=== PATIENT | male | born 1950 | race Caucasian/White ===

== ENCOUNTER 2018-12-12 11:14 | Inpatient (IN) ==
[2018-12-12] MEDS ORDERED: RAPID SEQUENCE INDUCTION BAG ONE (11:20)
[2018-12-12] MEDS ORDERED: ALBUT/IPRATROP 3MG/0.5MG NEB 3 ML VIAL ONE (11:21)
[2018-12-12] MEDS ORDERED: ALBUT/IPRATROP 3MG/0.5MG NEB 3 ML VIAL INH STA (11:27)
[2018-12-12] MEDS ORDERED: PIPERACILLIN/TAZOBACTAM 4.5 GM/120 ML BAG IV STA (11:27)
[2018-12-12] MEDS ORDERED: SODIUM CHLORIDE 0.9% 500 ML IV SCH (11:30)
[2018-12-12] MEDS ORDERED: SODIUM CHLORIDE 0.9% 1000ML 1,000 ML IV SCH (11:30)
[2018-12-12] MEDS ORDERED: ALBUT/IPRATROP 3MG/0.5MG NEB 3 ML VIAL NEB ONE (11:37)
[2018-12-12 11:41] LABS: Basophils # (auto) 0.01 K/uL (0-0.2); Basophils % (auto) 0.1 %; Eosinophils # (auto) 0.04 K/uL (0-0.5); Eosinophils % (auto) 0.4 %; Immature Granulocytes # (auto) 0.13 K/uL (0.00-0.02); Immature Granulocytes % (auto) 1.2 %; Lymphocytes # (auto) 0.56 K/uL (1.2-3.4); Lymphocytes % (auto) 5.3 %; Mean Corpuscular Hgb Conc 33.3 g/dL (32-36); Mean Corpuscular Volume 96.2 fL (80-100); Mean Platelet Volume 9.6 fL (7.4-10.4); Monocytes # (auto) 2.24 K/uL (0.11-0.59); Monocytes % (auto) 21.1 %; Neutrophils # (auto) 7.64 K/uL (1.4-6.5); Neutrophils % (auto) 71.9 %; Platelet Count 216 K/uL (130-400); RDW Coefficient of Variation 16.3 % (11.5-14.5); RDW Standard Deviation 57.4 fL (36.4-46.3); Red Blood Count 3.43 M/uL (4.7-6.1); White Blood Count 10.62 K/uL (4.8-10.8)
[2018-12-12 11:50] LABS: INR 1.1 (0.9-1.1); Partial Thromboplastin Ratio 1.1; Partial Thromboplastin Time 30.8 Seconds (21.0-31.0); Prothrombin Time 11.1 Seconds (9.0-12.0)
[2018-12-12 12:03] LABS: Alanine Aminotransferase 36 U/L (12-78); Aspartate Aminotransferase 63 U/L (15-37); BUN Creatinine Ratio 41.5 (10-20); Blood Urea Nitrogen 43 mg/dl (7-18); Calcium 8.3 mg/dl (8.5-10.1); Carbon Dioxide 33 mmol/L (21-32); Chloride 96 mmol/L (98-107); Est GFR (African American) 86.7; Est GFR (Non-African American) 74.8; Glucose 149 mg/dl (70-99); Potassium 4.4 mmol/L (3.5-5.1); Sodium 133 mmol/L (136-145)
[2018-12-12 12:06] LABS: Albumin Globulin Ratio 0.4 (0.9-2); Alkaline Phosphatase 64 U/L (45-117); Bilirubin,Total 0.3 mg/dl (0.2-1); Globulin 5.1 gm/dl (2.5-4.0); Total Protein 7.1 gm/dl (6.4-8.2)
[2018-12-12 12:12] LABS: Magnesium 2.5 mg/dl (1.8-2.4); Troponin I < 0.015 ng/ml (0-0.045)
[2018-12-12 12:35] LABS: Appearance Urine Cloudy (Clear); Bilirubin Urine Negative (Negative); Blood Urine Negative (Negative); Color Urine Dark Yellow; Epithelial Cell Urine Auto >30 /lpf (0-5); Glucose Urine UA Negative (Negative); Ketones Urine Negative (Negative); Leukocyte Esterase Urine 2+ (Negative); Nitrite Urine Negative (Negative); Protein Urine Negative (Negative); RBC Urine Automated 0-4 /hpf (0-4); Specific Gravity Urine 1.024 (1.000-1.030); Urobilinogen Urine Negative (Negative)
[2018-12-12 12:48] LABS: Influenza A virus by PCR Neg for Influ A (Neg); Influenza B virus by PCR Neg for Influ B (Neg)
--- NOTE | 2018-12-12 12:55 | XRay Report ---
SINGLE VIEW CHEST CLINICAL HISTORY: Dyspnea. FINDINGS: An AP, portable, upright chest radiograph is obtained. No prior studies are available for c omparison at the time of dictation. The examination is significantly degraded by portable technique a nd patient rotation. The heart is mildly enlarged. The pulmonary vasculature is noncongested. Patchy airspace consolidation is seen in the left mid to lower lung. No large pleural effusion or pneumotho rax is seen. The skeletal structures are osteopenic. The bony thorax is grossly intact. IMPRESSION: 1. Mild cardiac enlargement without radiographic evidence of congestive failure. 2. Patchy airspace consolidation is seen at the left lung base. Correlate clinically for evidence of pneumonia/aspiration pneumonitis. Radiographic follow-up to resolution is recommended. Electronically signed by: Tk Vidal M.D. 12/12/2018 12:54 PM
[2018-12-12 12:56] LABS: Bacteria Urine Automated 1+ (Negative)
[2018-12-12] MEDS ORDERED: ONDANSETRON INJ 2 MG/ML 2 ML VIAL IV PRN ×2 (13:48→14:06)
[2018-12-12] MEDS ORDERED: ZOLPIDEM TARTRATE 5 MG TAB PO PRN ×2 (13:48→14:06)
[2018-12-12] MEDS ORDERED: MAGNESIUM HYDROXIDE SUSP 30 ML UDC PO PRN ×2 (13:48→14:06)
[2018-12-12] MEDS ORDERED: ENOXAPARIN INJ 40 MG/0.4 ML SYR SQ SCH ×2 (13:48→14:15)
[2018-12-12] MEDS ORDERED: POLYETHYLENE (MIRALAX) 17 GM PACK PO PRN ×2 (13:48→14:06)
[2018-12-12] MEDS ORDERED: ALUMINUM/MAGNESIUM SUSP 30 ML UDC PO PRN ×2 (13:48→14:06)
[2018-12-12] MEDS ORDERED: ACETAMINOPHEN 325 MG TAB PO PRN ×2 (13:48→14:06)
[2018-12-12] MEDS ORDERED: NITROGLYCERIN SL 0.4 MG/TAB TAB SL PRN (14:06)
--- NOTE | 2018-12-12 16:11 | XRay Report ---
SINGLE VIEW CHEST CLINICAL HISTORY: Respiratory distress. FINDINGS: An AP, portable, upright chest radiograph is obtained. Comparison is made to study performe d earlier the same day 12/12/2018. The examination is significantly degraded by portable technique and patient rotation. The heart is mildly enlarged. The pulmonary vasculature is noncongested. Patchy a irspace opacities in both lung bases, left greater than right. This is similar to today's earlier exa mination. No large pleural effusion or pneumothorax is seen. The skeletal structures are osteopenic. The bony thorax is grossly intact. IMPRESSION: 1. Mild cardiac enlargement without radiographic evidence of congestive failure. 2. Patchy airspace opacities at present at both lung bases, left greater than right. This is similar to today's earlier examination. Correlate clinically for evidence of pneumonia/aspiration pneumonitis . Electronically signed by: Tk Vidal M.D. 12/12/2018 4:10 PM
[2018-12-12] MEDS ORDERED: SODIUM CHLORIDE 0.9% 1000ML 1,000 ML IV ONE (16:15)
[2018-12-12] MEDS ORDERED: CONSULT PHARMACY STA (16:26)
[2018-12-12] MEDS ORDERED: PIPERACILL/TAZOBAC CONSULT ACTIVE PRN (16:26)
--- NOTE | 2018-12-12 16:26 | Hospitalist Progress Note ---
Date of Service December 12, 2018 Assessment & Plan (1) Aspiration into airway: (2) Acute respiratory failure: Patient seen and examined, discussed with physician assistant office manager about patient condition and care plan, agree current care plan 68-year-old white male resident from local snf [facility] sent to the hospital for direct admission because of hypoxia , aspiration respiratory failure. Per report patient has past medical history of anxiety, bipolar, BPH, OCD, depression, GERD, "under use of anticoagulation"was sent to [facility] from snf. It was reported the patient was aspiration, was hypoxic, he went through emergency room and then to medicine follow-up, in the emergency room per report he had airway suctioning about 500 ml, after he was arriving to the floor another 200 male suctioningup. He was found hypoxic, pulse ox 88% in 6 L and then 12 L, his oxygen improved to 92% in BiPAP, he was found to confused not able to talk, his hands and feet are cold and mottled, talk has big area of dark and black , , his blood pressure was 86/49, temperature was 37.4 axillary Review of system not able to obtain Current vital signs temperature 37.4 axillary, blood pressure improved systolic at 110, IV fluid bolus 1 L bolus is going, On BiPAP machine, confused close eyes, only open eyes and talk simply when asking what his name, not able to engage in conversation Head was atraumatic, pupils equal round response to the night, ear normal nose normal, neck was supple. On BiPAP machine, bilateral not significant decreased breathing sound Heart regular rhythm S1-S2 Abdomen is soft PEG tube in place Bilateral upper and lower extremity is mild cyanotic and cold and rectal was deferred, Noble in place with deep yellow color Buttock has open dark skin Lab is pending Assessment and plan: Acute respiratory failure likely because of aspiration Possible aspiration pneumonia or pneumonitis Possible sepsis with mental status changes and hypoxic and elevated respiratory rate Possible in early shock with borderline low systolic blood pressure PEG tube feeding for unknown reason history of anxiety, bipolar, BPH, OCD, depression, GERD, Patient is in critical condition I believe patient need to be quick response to move to the ICU I ordered ABG, IV fluid bolus, blood culture, BMP, EKG, cardiac enzyme and troponin, d-dimer, BMP and Basic labs I talked to neonatal doctor Dr. Malik Physical Exam Vital Signs (Past 24 Hours): Last Vital Signs Temp 37.5 C 12/12/18 16:00 Pulse 89 12/12/18 16:00 Resp 26 H 12/12/18 16:00 BP 106/56 L 12/12/18 16:00 Pulse Ox 94 12/12/18 16:00 (1) Aspiration into airway Encounter type: initial encounter Qualified Code(s): T17.908A - Unspecified foreign body in respiratory tract, part unspecified causing other injury, initial encounter (2) Acute respiratory failure Respiratory failure complication: unspecified whether with hypoxia or hypercapnia Qualified Code(s): J96.00 - Acute respiratory failure, unspecified whether with hypoxia or hypercapnia
--- NOTE | 2018-12-12 16:37 | Critical Care Consultation ---
Date of Consultation December 12, 2018 Assessment & Plan (1) Altered mental status, unspecified: Reason Critically Ill: 68-year-old male acute hypoxic respiratory failure PLAN: Neuro: Altered mental status: GCS 11 -Unclear if this is acute or chronic Likely mood disorder -Anxiety, OCD, bipolar listed in hospitalist notes Resp: Acute hypoxic respiratory failure with hypercarbia -Question pneumonia versus mucoid impaction versus aspiration into airway -BiPAP 16/8 60% FiO2 CV: Abnormal EKG: Interventricular conduction delay, nonspecific -Troponins negative x1 Fluids/Renal: Hyponatremia Hypochloremia -Normosol at 80 mL's per hour ID: Possible source of infection: -Pneumonia: Nasotracheal suction sputum obtained -UTI: Micro pending -intra-abdominal: Trend LFTs tomorrow, acute hepatitis panel sent GI/Nutrition: PEG tube present -Unclear etiology, holding additional tube feeds at this time Heme: Anemia -Unclear if this is acute or chronic DVT prophylaxis: Heparin twice daily Elevated d-dimer -penitentiary resident: Unknown level of activity -We will obtain CT chest PE protocol and bilateral Venous duplex lower extremity Endocrine: ICU hyperglycemia protocol Elevated blood sugar Vascular access: Peripheral IVs Code Status: Full code I have personally spent 60 minutes of critical care time in the direct management of this patient. This is a life/limb threatening event. This includes time spent evaluating patient, direct bedside care, chart review, placing orders, interpretation of diagnostic studies, discussion with consultants, patient, and/or family members regarding treatment decisions, as we ll as other required patient management activities. This time is exclusive of all separately billable procedures, and teaching time and separate from and in addition to any other critical care service time. Present on Admission?: Yes (2) Acute hypoxemic respiratory failure: Present on Admission?: Yes (3) Anemia: Present on Admission?: Yes (4) Hyponatremia: Present on Admission?: Yes (5) Hypochloremia: Present on Admission?: Yes (6) Elevated AST (SGOT): Present on Admission?: Yes (7) Elevated BUN: Present on Admission?: Yes (8) Abnormal EKG: Present on Admission?: Yes (9) Intraventricular conduction delay: Present on Admission?: Yes (10) Elevated d-dimer: History of Present Illness Attending Physician: Naldo Manriquez MD, PhD, [facility] History is obtained from the visit notes, patient is unable to participate in history and physical secondary to acute encephalopathy. At the time of this dictation I am unable to access prior records from the [facility] system I have requested records from the [facility] nursing staff reports a single think she was transported with the patient. Reportedly the patient was a direct admit from our side for increased work of breathing possible pneumonia. It appears patient has a prior history of anxiety, OCD, bipolar disease, depression, GERD. He has a PEG tube. Allergies Allergy/AdvReac Type Severity Reaction Status Date / Time haloperidol [From Haldol] Allergy Unknown Unknown Unverified 12/12/18 15:14 methylphenidate Allergy Unknown Unknown Unverified 12/12/18 15:14 Home Medications Home Medications Medication Instructions Recorded Confirmed Type Ppd 0.1 ml SC UD 12/12/18 12/12/18 History acetaminophen 500 mg PO Q6H PRN 12/12/18 12/12/18 History clonazepam 1 mg FEEDING TUBE QAM 12/12/18 12/12/18 History clonazepam 2 mg FEEDING TUBE HS 12/12/18 12/12/18 History famotidine 20 mg FEEDING TUBE TID 12/12/18 12/12/18 History finasteride 5 mg FEEDING TUBE HS 12/12/18 12/12/18 History fluticasone [Flonase Allergy 1 spray INTRANASAL BID 12/12/18 12/12/18 History Relief] guaifenesin 100 mg FEEDING TUBE TID 12/12/18 12/12/18 History heparin (porcine) 5,000 unit SUBCUT Q12H 12/12/18 12/12/18 History ipratropium-albuterol 3 ml INHALATION Q8H 12/12/18 12/12/18 History loratadine 10 mg FEEDING TUBE QAM 12/12/18 12/12/18 History lorazepam 1 mg FEEDING TUBE TID 12/12/18 12/12/18 History metoclopramide HCl [Reglan] 5 mg FEEDING TUBE Q6H 12/12/18 12/12/18 History risperidone 0.5 mg FEEDING TUBE Q6H PRN 12/12/18 12/12/18 History sertraline 100 mg FEEDING TUBE QAM 12/12/18 12/12/18 History tamsulosin 0.8 mg PO HS 12/12/18 12/12/18 History valproic acid (as sodium salt) 750 mg PO BID 12/12/18 12/12/18 History [Depakene] Patient History Medical History Anxiety Bipolar disorder Depressive disorder GERD (gastroesophageal reflux disease) OCD (obsessive compulsive disorder) Family History Other Family history non-contributory Social History Communication Ability: sick Communication Ability Comment: pt has impaired communication due to illness [employer] Att[employer] Required: No Beliefs That Will Affect Care: None marital status: Single Current Living Situation: [facility] current occupational status: retired Feels Safe at Home: Yes Smoking Status: Unknown if ever smoked Review of Systems Unable to obtain secondary to patient's acute encephalopathy versus baseline organic brain disease Physical Exam Vital Signs (Past 24 Hours): Last Vital Signs Temp 37.5 C 12/12/18 16:00 Pulse 89 12/12/18 16:00 Resp 26 H 12/12/18 16:00 BP 106/56 L 12/12/18 16:00 Pulse Ox 94 12/12/18 16:00 General: Elderly male who appears older than his stated age I have reviewed the recorded vital signs Neurological: RASS score: -1, more arousable with deep stimuli, Moves all 4 extremities, Psychological: [place] Coma Scale: Eyes: 3 voice, Verbal 3, Motor 5, Total 11 not Following complex commands Eyes: Pupils are equal, round and reactive to light, anicteric sclera. Symmetrical lids. HENT: Oropharynx is clear mucous membranes are moist. Neck: Supple. Symmetric. trachea midline. No thyromegaly. Cardiovascular: Normal peripheral perfusion. Distal pulses weak and capillary refill delayed. No JVD. Respiratory: Respirations are non-labored, no accessory muscle use. Breath sounds are equal. Gastrointestinal: Soft. Non-distended. Lymphatic: No cervical lymphadenopathy. Musculoskeletal: No deformity. No clubbing nor cyanosis. 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 this wound care setting really more is pale Results & Data Laboratory Results 12/12/18 12/12/18 12/12/18 Range/Units 16:39 16:39 16:39 WBC (4.8-10.8) K/uL RBC (4.7-6.1) M/uL Hgb (14.0-18.0) g/dL Hct (42-52) % MCV (80-100) fL MCH (25-34) pg MCHC (32-36) g/dL RDW Std Deviation (36.4-46.3) fL RDW Coeff of Tyson (11.5-14.5) % Plt Count (130-400) K/uL MPV (7.4-10.4) fL Immature Gran % (Auto) % Neut % (Auto) % Lymph % (Auto) % [place] % (Auto) % Eos % (Auto) % Baso % (Auto) % Immature Gran # (Auto) (0.00-0.02) K/uL Neut # (Auto) (1.4-6.5) K/uL Lymph # (Auto) (1.2-3.4) K/uL [place] # (Auto) (0.11-0.59) K/uL Eos # (Auto) (0-0.5) K/uL Baso # (Auto) (0-0.2) K/uL ESR PT (9.0-12.0) Seconds INR (0.9-1.1) APTT (21.0-31.0) Seconds PTT Ratio D-Dimer Sodium (136-145) mmol/L Potassium (3.5-5.1) mmol/L Chloride (98-107) mmol/L Carbon Dioxide (21-32) mmol/L Anion Gap (3-11) BUN (7-18) mg/dl Creatinine (0.6-1.4) mg/dl Est Cr Clr Drug Dosing Est GFR ( Amer) Est GFR (Non-Af Amer) BUN/Creatinine Ratio (10-20) Glucose (70-99) mg/dl POC Glucose (70-99) POC Lactic Acid Ivan (0.90-1.70) mmol/L Lactate Calcium (8.5-10.1) mg/dl Ionized Calcium Pending Phosphorus Magnesium (1.8-2.4) mg/dl Total Bilirubin (0.2-1) mg/dl AST (15-37) U/L ALT (12-78) U/L Alkaline Phosphatase (45-117) U/L Troponin I (0-0.045) ng/ml C-Reactive Protein NT-Pro-B Natriuret Pep Total Protein (6.4-8.2) gm/dl Albumin (3.4-5.0) gm/dl Globulin (2.5-4.0) gm/dl Albumin/Globulin Ratio (0.9-2) Procalcitonin Pending Random Cortisol Urine Color Urine Appearance (Clear) Urine pH (4.5-7.5) Ur Specific [place] (1.000-1.030) Urine Protein (Negative) Urine Glucose (UA) (Negative) Urine Ketones (Negative) Urine Blood (Negative) Urine Nitrite (Negative) Urine Bilirubin (Negative) Urine Urobilinogen (Negative) Ur Leukocyte Esterase (Negative) Urine WBC (Auto) (0-5) /hpf Urine RBC (Auto) (0-4) /hpf U Hyaline Cast (Auto) (0-5) /lpf U Epithel Cells (Auto) (0-5) /lpf Urine Bacteria (Auto) (Negative) Ur Renal Epithelial Cell Granular Casts (0) /lpf Urine Yeast Valproic Acid Pending Hepatitis A IgM Ab Hep Bs Antigen Hep B Core IgM Ab Hepatitis C Antibody Influenza Type A (PCR) (Neg) Influenza Type B (PCR) (Neg) 12/12/18 12/12/18 12/12/18 Range/Units 16:39 16:39 16:39 WBC (4.8-10.8) K/uL RBC (4.7-6.1) M/uL Hgb (14.0-18.0) g/dL Hct (42-52) % MCV (80-100) fL MCH (25-34) pg MCHC (32-36) g/dL RDW Std Deviation (36.4-46.3) fL RDW Coeff of Tyson (11.5-14.5) % Plt Count (130-400) K/uL MPV (7.4-10.4) fL Immature Gran % (Auto) % Neut % (Auto) % Lymph % (Auto) % [place] % (Auto) % Eos % (Auto) % Baso % (Auto) % Immature Gran # (Auto) (0.00-0.02) K/uL Neut # (Auto) (1.4-6.5) K/uL Lymph # (Auto) (1.2-3.4) K/uL Ponce # (Auto) (0.11-0.59) K/uL Eos # (Auto) (0-0.5) K/uL Baso # (Auto) (0-0.2) K/uL ESR Pending PT (9.0-12.0) Seconds INR (0.9-1.1) APTT (21.0-31.0) Seconds PTT Ratio D-Dimer Sodium Pending (136-145) mmol/L Potassium Pending (3.5-5.1) mmol/L Chloride Pending (98-107) mmol/L Carbon Dioxide Pending (21-32) mmol/L Anion Gap Pending (3-11) BUN Pending (7-18) mg/dl Creatinine Pending (0.6-1.4) mg/dl Est Cr Clr Drug Dosing Pending Est GFR ( Amer) Pending Est GFR (Non-Af Amer) Pending BUN/Creatinine Ratio Pending (10-20) Glucose Pending (70-99) mg/dl POC Glucose (70-99) POC Lactic Acid Ivan (0.90-1.70) mmol/L Lactate Pending Calcium Pending (8.5-10.1) mg/dl Ionized Calcium Phosphorus Pending Magnesium Pending (1.8-2.4) mg/dl Total Bilirubin Pending (0.2-1) mg/dl AST Pending (15-37) U/L ALT Pending (12-78) U/L Alkaline Phosphatase Pending (45-117) U/L Troponin I Pending (0-0.045) ng/ml C-Reactive Protein Pending NT-Pro-B Natriuret Pep Pending Total Protein Pending (6.4-8.2) gm/dl Albumin Pending (3.4-5.0) gm/dl Globulin Pending (2.5-4.0) gm/dl Albumin/Globulin Ratio Pending (0.9-2) Procalcitonin Random Cortisol Urine Color Urine Appearance (Clear) Urine pH (4.5-7.5) Ur Specific [place] (1.000-1.030) Urine Protein (Negative) Urine Glucose (UA) (Negative) Urine Ketones (Negative) Urine Blood (Negative) Urine Nitrite (Negative) Urine Bilirubin (Negative) Urine Urobilinogen (Negative) Ur Leukocyte Esterase (Negative) Urine WBC (Auto) (0-5) /hpf Urine RBC (Auto) (0-4) /hpf U Hyaline Cast (Auto) (0-5) /lpf U Epithel Cells (Auto) (0-5) /lpf Urine Bacteria (Auto) (Negative) Ur Renal Epithelial Cell Granular Casts (0) /lpf Urine Yeast Valproic Acid Hepatitis A IgM Ab Hep Bs Antigen Hep B Core IgM Ab Hepatitis C Antibody Influenza Type A (PCR) (Neg) Influenza Type B (PCR) (Neg) 12/12/18 12/12/18 12/12/18 Range/Units 16:39 16:05 12:05 WBC (4.8-10.8) K/uL RBC (4.7-6.1) M/uL Hgb (14.0-18.0) g/dL Hct (42-52) % MCV (80-100) fL MCH (25-34) pg MCHC (32-36) g/dL RDW Std Deviation (36.4-46.3) fL RDW Coeff of Tyson (11.5-14.5) % Plt Count (130-400) K/uL MPV (7.4-10.4) fL Immature Gran % (Auto) % Neut % (Auto) % Lymph % (Auto) % [place] % (Auto) % Eos % (Auto) % Baso % (Auto) % Immature Gran # (Auto) (0.00-0.02) K/uL Neut # (Auto) (1.4-6.5) K/uL Lymph # (Auto) (1.2-3.4) K/uL Ponce # (Auto) (0.11-0.59) K/uL Eos # (Auto) (0-0.5) K/uL Baso # (Auto) (0-0.2) K/uL ESR PT (9.0-12.0) Seconds INR (0.9-1.1) APTT (21.0-31.0) Seconds PTT Ratio D-Dimer Pending Sodium (136-145) mmol/L Potassium (3.5-5.1) mmol/L Chloride (98-107) mmol/L Carbon Dioxide (21-32) mmol/L Anion Gap (3-11) BUN (7-18) mg/dl Creatinine (0.6-1.4) mg/dl Est Cr Clr Drug Dosing Est GFR ( Amer) Est GFR (Non-Af Amer) BUN/Creatinine Ratio (10-20) Glucose (70-99) mg/dl POC Glucose 156 H (70-99) POC Lactic Acid Ivan (0.90-1.70) mmol/L Lactate Calcium (8.5-10.1) mg/dl Ionized Calcium Phosphorus Magnesium (1.8-2.4) mg/dl Total Bilirubin (0.2-1) mg/dl AST (15-37) U/L ALT (12-78) U/L Alkaline Phosphatase (45-117) U/L Troponin I (0-0.045) ng/ml C-Reactive Protein NT-Pro-B Natriuret Pep Total Protein (6.4-8.2) gm/dl Albumin (3.4-5.0) gm/dl Globulin (2.5-4.0) gm/dl Albumin/Globulin Ratio (0.9-2) Procalcitonin Random Cortisol Urine Color Dark Yellow Urine Appearance Cloudy H (Clear) Urine pH 5.0 (4.5-7.5) Ur Specific [place] 1.024 (1.000-1.030) Urine Protein Negative (Negative) Urine Glucose (UA) Negative (Negative) Urine Ketones Negative (Negative) Urine Blood Negative (Negative) Urine Nitrite Negative (Negative) Urine Bilirubin Negative (Negative) Urine Urobilinogen Negative (Negative) Ur Leukocyte Esterase 2+ H (Negative) Urine WBC (Auto) 10-30 H (0-5) /hpf Urine RBC (Auto) 0-4 (0-4) /hpf U Hyaline Cast (Auto) 10-30 H (0-5) /lpf U Epithel Cells (Auto) >30 H (0-5) /lpf Urine Bacteria (Auto) 1+ H (Negative) Ur Renal Epithelial Cell Not Reportable Granular Casts 5-10 H (0) /lpf Urine Yeast Not Reportable Valproic Acid Hepatitis A IgM Ab Hep Bs Antigen Hep B Core IgM Ab Hepatitis C Antibody Influenza Type A (PCR) (Neg) Influenza Type B (PCR) (Neg) 12/12/18 12/12/18 12/12/18 Range/Units 12:04 11:30 11:24 WBC (4.8-10.8) K/uL RBC (4.7-6.1) M/uL Hgb (14.0-18.0) g/dL Hct (42-52) % MCV (80-100) fL MCH (25-34) pg MCHC (32-36) g/dL RDW Std Deviation (36.4-46.3) fL RDW Coeff of Tyson (11.5-14.5) % Plt Count (130-400) K/uL MPV (7.4-10.4) fL Immature Gran % (Auto) % Neut % (Auto) % Lymph % (Auto) % [place] % (Auto) % Eos % (Auto) % Baso % (Auto) % Immature Gran # (Auto) (0.00-0.02) K/uL Neut # (Auto) (1.4-6.5) K/uL Lymph # (Auto) (1.2-3.4) K/uL Ponce # (Auto) (0.11-0.59) K/uL Eos # (Auto) (0-0.5) K/uL Baso # (Auto) (0-0.2) K/uL ESR PT (9.0-12.0) Seconds INR (0.9-1.1) APTT (21.0-31.0) Seconds PTT Ratio D-Dimer Sodium (136-145) mmol/L Potassium (3.5-5.1) mmol/L Chloride (98-107) mmol/L Carbon Dioxide (21-32) mmol/L Anion Gap (3-11) BUN (7-18) mg/dl Creatinine (0.6-1.4) mg/dl Est Cr Clr Drug Dosing Est GFR ( Amer) Est GFR (Non-Af Amer) BUN/Creatinine Ratio (10-20) Glucose (70-99) mg/dl POC Glucose (70-99) POC Lactic Acid Ivan 1.48 (0.90-1.70) mmol/L Lactate Calcium (8.5-10.1) mg/dl Ionized Calcium Phosphorus Magnesium (1.8-2.4) mg/dl Total Bilirubin (0.2-1) mg/dl AST (15-37) U/L ALT (12-78) U/L Alkaline Phosphatase (45-117) U/L Troponin I (0-0.045) ng/ml C-Reactive Protein NT-Pro-B Natriuret Pep Total Protein (6.4-8.2) gm/dl Albumin (3.4-5.0) gm/dl Globulin (2.5-4.0) gm/dl Albumin/Globulin Ratio (0.9-2) Procalcitonin Random Cortisol Urine Color Urine Appearance (Clear) Urine pH (4.5-7.5) Ur Specific [place] (1.000-1.030) Urine Protein (Negative) Urine Glucose (UA) (Negative) Urine Ketones (Negative) Urine Blood (Negative) Urine Nitrite (Negative) Urine Bilirubin (Negative) Urine Urobilinogen (Negative) Ur Leukocyte Esterase (Negative) Urine WBC (Auto) (0-5) /hpf Urine RBC (Auto) (0-4) /hpf U Hyaline Cast (Auto) (0-5) /lpf U Epithel Cells (Auto) (0-5) /lpf Urine Bacteria (Auto) (Negative) Ur Renal Epithelial Cell Granular Casts (0) /lpf Urine Yeast Valproic Acid Hepatitis A IgM Ab Pending Hep Bs Antigen Hep B Core IgM Ab Pending Hepatitis C Antibody Influenza Type A (PCR) Neg for Influ A (Neg) Influenza Type B (PCR) Neg for Influ B (Neg) 12/12/18 12/12/18 12/12/18 Range/Units 11:24 11:24 11:24 WBC (4.8-10.8) K/uL RBC (4.7-6.1) M/uL Hgb (14.0-18.0) g/dL Hct (42-52) % MCV (80-100) fL MCH (25-34) pg MCHC (32-36) g/dL RDW Std Deviation (36.4-46.3) fL RDW Coeff of Tyson (11.5-14.5) % Plt Count (130-400) K/uL MPV (7.4-10.4) fL Immature Gran % (Auto) % Neut % (Auto) % Lymph % (Auto) % [place] % (Auto) % Eos % (Auto) % Baso % (Auto) % Immature Gran # (Auto) (0.00-0.02) K/uL Neut # (Auto) (1.4-6.5) K/uL Lymph # (Auto) (1.2-3.4) K/uL Ponce # (Auto) (0.11-0.59) K/uL Eos # (Auto) (0-0.5) K/uL Baso # (Auto) (0-0.2) K/uL ESR PT (9.0-12.0) Seconds INR (0.9-1.1) APTT (21.0-31.0) Seconds PTT Ratio D-Dimer Sodium 133 L (136-145) mmol/L Potassium 4.4 (3.5-5.1) mmol/L Chloride 96 L (98-107) mmol/L Carbon Dioxide 33 H (21-32) mmol/L Anion Gap 4.0 (3-11) BUN 43 H (7-18) mg/dl Creatinine 1.03 (0.6-1.4) mg/dl Est Cr Clr Drug Dosing Not Reportable Est GFR ( Amer) 86.7 Est GFR (Non-Af Amer) 74.8 BUN/Creatinine Ratio 41.5 H (10-20) Glucose 149 H (70-99) mg/dl POC Glucose (70-99) POC Lactic Acid Ivan (0.90-1.70) mmol/L Lactate Calcium 8.3 L (8.5-10.1) mg/dl Ionized Calcium Phosphorus Magnesium (1.8-2.4) mg/dl Total Bilirubin 0.3 (0.2-1) mg/dl AST 63 H (15-37) U/L ALT 36 (12-78) U/L Alkaline Phosphatase 64 (45-117) U/L Troponin I (0-0.045) ng/ml C-Reactive Protein NT-Pro-B Natriuret Pep Total Protein 7.1 (6.4-8.2) gm/dl Albumin 2.0 L (3.4-5.0) gm/dl Globulin 5.1 H (2.5-4.0) gm/dl Albumin/Globulin Ratio 0.4 L (0.9-2) Procalcitonin Random Cortisol Pending Urine Color Urine Appearance (Clear) Urine pH (4.5-7.5) Ur Specific [place] (1.000-1.030) Urine Protein (Negative) Urine Glucose (UA) (Negative) Urine Ketones (Negative) Urine Blood (Negative) Urine Nitrite (Negative) Urine Bilirubin (Negative) Urine Urobilinogen (Negative) Ur Leukocyte Esterase (Negative) Urine WBC (Auto) (0-5) /hpf Urine RBC (Auto) (0-4) /hpf U Hyaline Cast (Auto) (0-5) /lpf U Epithel Cells (Auto) (0-5) /lpf Urine Bacteria (Auto) (Negative) Ur Renal Epithelial Cell Granular Casts (0) /lpf Urine Yeast Valproic Acid Hepatitis A IgM Ab Hep Bs Antigen Pending Hep B Core IgM Ab Hepatitis C Antibody Pending Influenza Type A (PCR) (Neg) Influenza Type B (PCR) (Neg) 12/12/18 12/12/18 12/12/18 Range/Units 11:24 11:24 11:24 WBC 10.62 (4.8-10.8) K/uL RBC 3.43 L (4.7-6.1) M/uL Hgb 11.0 L (14.0-18.0) g/dL Hct 33.0 L (42-52) % MCV 96.2 (80-100) fL MCH 32.1 (25-34) pg MCHC 33.3 (32-36) g/dL RDW Std Deviation 57.4 H (36.4-46.3) fL RDW Coeff of Tyson 16.3 H (11.5-14.5) % Plt Count 216 (130-400) K/uL MPV 9.6 (7.4-10.4) fL Immature Gran % (Auto) 1.2 % Neut % (Auto) 71.9 % Lymph % (Auto) 5.3 % [place] % (Auto) 21.1 % Eos % (Auto) 0.4 % Baso % (Auto) 0.1 % Immature Gran # (Auto) 0.13 H (0.00-0.02) K/uL Neut # (Auto) 7.64 H (1.4-6.5) K/uL Lymph # (Auto) 0.56 L (1.2-3.4) K/uL [place]once # (Auto) 2.24 H (0.11-0.59) K/uL Eos # (Auto) 0.04 (0-0.5) K/uL Baso # (Auto) 0.01 (0-0.2) K/uL ESR PT 11.1 (9.0-12.0) Seconds INR 1.1 (0.9-1.1) APTT 30.8 (21.0-31.0) Seconds PTT Ratio 1.1 D-Dimer Sodium (136-145) mmol/L Potassium (3.5-5.1) mmol/L Chloride (98-107) mmol/L Carbon Dioxide (21-32) mmol/L Anion Gap (3-11) BUN (7-18) mg/dl Creatinine (0.6-1.4) mg/dl Est Cr Clr Drug Dosing Est GFR ( Amer) Est GFR (Non-Af Amer) BUN/Creatinine Ratio (10-20) Glucose (70-99) mg/dl POC Glucose (70-99) POC Lactic Acid Ivan (0.90-1.70) mmol/L Lactate Calcium (8.5-10.1) mg/dl Ionized Calcium Phosphorus Magnesium 2.5 H (1.8-2.4) mg/dl Total Bilirubin (0.2-1) mg/dl AST (15-37) U/L ALT (12-78) U/L Alkaline Phosphatase (45-117) U/L Troponin I < 0.015 (0-0.045) ng/ml C-Reactive Protein NT-Pro-B Natriuret Pep Total Protein (6.4-8.2) gm/dl Albumin (3.4-5.0) gm/dl Globulin (2.5-4.0) gm/dl Albumin/Globulin Ratio (0.9-2) Procalcitonin Random Cortisol Urine Color Urine Appearance (Clear) Urine pH (4.5-7.5) Ur Specific [place] (1.000-1.030) Urine Protein (Negative) Urine Glucose (UA) (Negative) Urine Ketones (Negative) Urine Blood (Negative) Urine Nitrite (Negative) Urine Bilirubin (Negative) Urine Urobilinogen (Negative) Ur Leukocyte Esterase (Negative) Urine WBC (Auto) (0-5) /hpf Urine RBC (Auto) (0-4) /hpf U Hyaline Cast (Auto) (0-5) /lpf U Epithel Cells (Auto) (0-5) /lpf Urine Bacteria (Auto) (Negative) Ur Renal Epithelial Cell Granular Casts (0) /lpf Urine Yeast Valproic Acid Hepatitis A IgM Ab Hep Bs Antigen Hep B Core IgM Ab Hepatitis C Antibody Influenza Type A (PCR) (Neg) Influenza Type B (PCR) (Neg) Diagnostic Findings I have reviewed both chest x-rays obtained today as well as the radiology report he does have patchy infiltrates in the left lung field concerning for possible pneumonia versus aspiration versus mucoid impaction ECG Additional Comments: Reviewed EKG since seen in November 2018 normal sinus rhythm with ventricular rate of 88 nonspecific intraventricular conduction delay QTC is 469 no prior for comparison. (1) Altered mental status, unspecified Altered mental status type: coma Coma depth: [place] coma 9-12 Coma timing: unspecified coma timing Qualified Code(s): R40.2420 - [place] coma scale score 9-12, unspecified time
[2018-12-12] MEDS ORDERED: VANCOMYCIN CONSULT ACTIVE PRN (16:42)
[2018-12-12] MEDS ORDERED: PATIENT'S HEIGHT AND/OR WEIGHT NEEDED SCH (16:45)
[2018-12-12 17:10] LABS: iSTAT Allen Test Pass; iSTAT Arterial Blood Gas HCO3 29 meg/L (19-24); iSTAT Arterial Blood Gas pCO2 48 mmHg (35-46); iSTAT Arterial Blood Gas pH 7.39 (7.35-7.45); iSTAT Carbon Dioxide 31 mEq/l (24-31); iSTAT FiO2 60 %; iSTAT Site R Radial
[2018-12-12 17:15] LABS: D Dimer 4400 ug/L FEU (0-500)
[2018-12-12 17:16] LABS: Alanine Aminotransferase 36 U/L (12-78); Albumin Level 1.9 gm/dl (3.4-5.0); Aspartate Aminotransferase 56 U/L (15-37); BUN Creatinine Ratio 39.2 (10-20); Blood Urea Nitrogen 40 mg/dl (7-18); Calcium 8.5 mg/dl (8.5-10.1); Carbon Dioxide 33 mmol/L (21-32); Chloride 100 mmol/L (98-107); Creatinine Clr Calc Pharmacy 68.7 ml/min; Est GFR (African American) 88.8; Est GFR (Non-African American) 76.6; Glucose 129 mg/dl (70-99); Magnesium 2.3 mg/dl (1.8-2.4); Potassium 4.4 mmol/L (3.5-5.1); Sodium 138 mmol/L (136-145)
[2018-12-12 17:24] LABS: Albumin Globulin Ratio 0.4 (0.9-2); Alkaline Phosphatase 60 U/L (45-117); Bilirubin,Total 0.3 mg/dl (0.2-1); Globulin 4.7 gm/dl (2.5-4.0); NT Pro B Type Natriuretic Pept 852 pg/ml (0-900); Phosphorus 5.5 mg/dl (2.5-4.9); Total Protein 6.6 gm/dl (6.4-8.2); Troponin I < 0.015 ng/ml (0-0.045)
--- NOTE | 2018-12-12 17:25 | Emergency Department Note ---
Entered by Ashley De acting as a scribe for History of Present Illness General Chief complaint: Respiratory Distress Stated complaint: respiratory distress/ams Time Seen by Provider: 12/12/18 11:16 Source: other (nursing staff) Limitations: other (respiratory distress) History of Present Illness Onset (ago): minute(s) ([employer]) Location: chest Pain Consistency: + other (episode) Quality: + other (respiratory distress) Associated symptoms: + other (difficulty getting him to respond) The patient is a 68 year old male who presents to the Emergency Room with complaints of an episode of respiratory distress starting prior to arrival. Per the nursing staff, the patient is coming from [facility] with difficulty breathing and difficulty getting him to respond. They note that the patient is a full code. The HPI and ROS are limited secondary to AMS & respiratory distress. Home Medications Home Medications Medication Instructions Recorded Confirmed Type Ppd 0.1 ml SC UD 12/12/18 12/12/18 History acetaminophen 500 mg PO Q6H PRN 12/12/18 12/12/18 History clonazepam 1 mg FEEDING TUBE QAM 12/12/18 12/12/18 History clonazepam 2 mg FEEDING TUBE HS 12/12/18 12/12/18 History famotidine 20 mg FEEDING TUBE TID 12/12/18 12/12/18 History finasteride 5 mg FEEDING TUBE HS 12/12/18 12/12/18 History fluticasone propionate [Flonase 1 spray INTRANASAL BID 12/12/18 12/12/18 History Allergy Relief] guaifenesin 100 mg FEEDING TUBE TID 12/12/18 12/12/18 History heparin (porcine) 5,000 unit SUBCUT Q12H 12/12/18 12/12/18 History ipratropium-albuterol 3 ml INHALATION Q8H 12/12/18 12/12/18 History loratadine 10 mg FEEDING TUBE QAM 12/12/18 12/12/18 History lorazepam 1 mg FEEDING TUBE TID 12/12/18 12/12/18 History metoclopramide HCl [Reglan] 5 mg FEEDING TUBE Q6H 12/12/18 12/12/18 History risperidone 0.5 mg FEEDING TUBE Q6H PRN 12/12/18 12/12/18 History sertraline 100 mg FEEDING TUBE QAM 12/12/18 12/12/18 History tamsulosin 0.8 mg PO HS 12/12/18 12/12/18 History valproic acid (as sodium salt) 750 mg PO BID 12/12/18 12/12/18 History [Depakene] Allergies Allergy/AdvReac Type Severity Reaction Status Date / Time haloperidol [From Haldol] Allergy Unknown Unknown Unverified 12/12/18 15:14 methylphenidate Allergy Unknown Unknown Unverified 12/12/18 15:14 Past Med/Surg History Medical History Anxiety Bipolar disorder Depressive disorder GERD (gastroesophageal reflux disease) OCD (obsessive compulsive disorder) Family History Other Family history non-contributory Social History Communication Ability: Impaired Beliefs That Will Affect Care: None marital status: Single Current Living Situation: Assisted current occupational status: retired Feels Safe at Home: Yes Smoking Status: Unknown if ever smoked Review of Systems The HPI and ROS are limited secondary to respiratory distress. Physical Exam Vital Signs Vital Signs - 24 hr 12/14/18 10:00 12/14/18 10:30 12/14/18 11:00 Temperature Temperature Source Pulse Rate 71 82 76 Pulse Rate [Apical] Pulse Rate [Right Finger] Pulse Rate from SpO2 Sensor 72 82 76 Respiratory Rate 21 24 19 Respiratory Effort / Characteristics Respiratory Depth Respiratory Pattern Blood Pressure 133/70 Blood Pressure [Left Arm] Blood Pressure Mean 91 Blood Pressure Mean [Left Arm] Blood Pressure Position [Left Arm] Pulse Oximetry 96 96 99 Oxygen Delivery Method Oxygen Flow Rate 12/14/18 11:01 12/14/18 11:30 12/14/18 12:00 Temperature 36.8 C Temperature Source Pulse Rate 76 70 69 Pulse Rate [Apical] Pulse Rate [Right Finger] Pulse Rate from SpO2 Sensor 77 70 70 Respiratory Rate 18 21 24 Respiratory Effort / Characteristics Respiratory Depth Respiratory Pattern Blood Pressure 120/67 119/64 Blood Pressure [Left Arm] Blood Pressure Mean 84 82 Blood Pressure Mean [Left Arm] Blood Pressure Position [Left Arm] Pulse Oximetry 99 98 99 Oxygen Delivery Method Oxygen Flow Rate 12/14/18 12:01 12/14/18 12:30 12/14/18 13:00 Temperature Temperature Source Pulse Rate 70 76 83 Pulse Rate [Apical] Pulse Rate [Right Finger] Pulse Rate from SpO2 Sensor 71 76 Respiratory Rate 17 24 22 Respiratory Effort / Characteristics Respiratory Depth Respiratory Pattern Blood Pressure Blood Pressure [Left Arm] Blood Pressure Mean Blood Pressure Mean [Left Arm] Blood Pressure Position [Left Arm] Pulse Oximetry 100 99 Oxygen Delivery Method Oxygen Flow Rate 12/14/18 13:01 12/14/18 13:30 12/14/18 14:00 Temperature Temperature Source Pulse Rate 84 84 84 Pulse Rate [Apical] Pulse Rate [Right Finger] Pulse Rate from SpO2 Sensor 84 Respiratory Rate 36 H 28 H 26 H Respiratory Effort / Characteristics Respiratory Depth Respiratory Pattern Blood Pressure 123/72 125/73 Blood Pressure [Left Arm] Blood Pressure Mean 89 90 Blood Pressure Mean [Left Arm] Blood Pressure Position [Left Arm] Pulse Oximetry 91 Oxygen Delivery Method Oxygen Flow Rate 12/14/18 14:01 12/14/18 16:00 12/14/18 19:36 Temperature 36.5 C Temperature Source Oral Pulse Rate 80 74 Pulse Rate [Apical] 62 Pulse Rate [Right Finger] Pulse Rate from SpO2 Sensor 81 Respiratory Rate 30 H 22 Respiratory Effort / Characteristics Non-Labored Spontaneous Non-Labored Respiratory Depth Normal Normal Respiratory Pattern Regular Regular Blood Pressure Blood Pressure [Left Arm] 158/90 H Blood Pressure Mean Blood Pressure Mean [Left Arm] 112 Blood Pressure Position [Left Arm] Lying Pulse Oximetry 91 99 Oxygen Delivery Method Nasal Cannula Nasal Cannula Oxygen Flow Rate 3 2 12/15/18 00:35 12/15/18 00:38 12/15/18 08:00 Temperature 36.9 C 36.4 C L Temperature Source Oral Oral Pulse Rate Pulse Rate [Apical] 79 Pulse Rate [Right Finger] 77 Pulse Rate from SpO2 Sensor Respiratory Rate 17 18 Respiratory Effort / Characteristics Non-Labored Spontaneous Respiratory Depth Normal Respiratory Pattern Regular Blood Pressure Blood Pressure [Left Arm] 165/84 H 145/77 H Blood Pressure Mean Blood Pressure Mean [Left Arm] 111 99 Blood Pressure Position [Left Arm] Lying Pulse Oximetry 92 93 Oxygen Delivery Method Nasal Cannula Room Air Oxygen Flow Rate 2 2 Vital signs reviewed. Noted to be severely hypoxic. General: Chronically ill-appearing, cachectic, in no significant distress. HEENT: No scleral icterus, PERRLA, neck supple. Atraumatic. Copious amounts of oral secretions. Cardiovascular: Regular rate and rhythm, no extra sounds. Pulmonary: Rhonchi bilaterally. Moist cough. Agonal breathing. Abdomen: Soft, nontender, nondistended, positive bowel sounds. Musculoskeletal: Atraumatic, no peripheral edema. Bilateral lower extremity contractures. Neurologic: Moans and responds to verbal stimuli and suction. Skin: Warm, dry, no rash Course 1117: Past medical records reviewed. The patient was evaluated in room C1B, and a complete history and physical examination were performed. 1317: I reevaluated the patient and he is on Bi-PAP. 1330: I reviewed the patient's case with KATIE Reynoso Hospitalist. He will evaluate the patient for further management. Consultations Consultation #1: I reviewed the patient's case with KATIE Reynoso Hospitalist. He will evaluate the patient for further management. Time: 13:30 Administered Medications Acetylcysteine (Mucomyst 10%) 5 ml INH TIDR LAUREANO Stop: 01/13/19 08:59 Last Admin: 12/15/18 07:35 Dose: Not Given Documented by: [id number] Admin: 12/14/18 23:02 Dose: Not Given Documented by: [id number] Admin: 12/14/18 15:09 Dose: Not Given Documented by: [id number] Admin: 12/14/18 07:26 Dose: 5 ml Documented by: [id number] Albuterol (Duoneb) 3 ml NEB Q8R LAUREANO Stop: 01/11/19 19:05 Last Admin: 12/15/18 07:34 Dose: Not Given Documented by: [id number] Admin: 12/14/18 23:02 Dose: Not Given Documented by: [id number] Admin: 12/14/18 15:09 Dose: Not Given Documented by: [id number] Admin: 12/14/18 07:27 Dose: 3 ml Documented by: [id number] Admin: 12/13/18 23:10 Dose: 3 ml Documented by: [id number] Admin: 12/13/18 15:25 Dose: 3 ml Documented by: [id number] Admin: 12/13/18 07:12 Dose: 3 ml Documented by: [id number] Admin: 12/12/18 23:02 Dose: 3 ml Documented by: [id number] Admin: 12/12/18 19:41 Dose: 3 ml Documented by: [id number] Clonazepam (Klonopin) 1 mg PO Q12 LAUREANO Stop: 01/13/19 09:14 Last Admin: 12/15/18 07:53 Dose: 1 mg Documented by: [id number] Admin: 12/14/18 21:13 Dose: 1 mg Documented by: [id number] Admin: 12/14/18 10:32 Dose: 1 mg Documented by: [id number] Divalproex Sodium (Depakote Sprinkle) 750 mg PO BID LAUREANO Stop: 01/11/19 20:59 Last Admin: 12/15/18 07:43 Dose: 750 mg Documented by: [id number] Admin: 12/14/18 20:52 Dose: 750 mg Documented by: [id number] Admin: 12/14/18 07:43 Dose: 750 mg Documented by: [id number] Admin: 12/13/18 20:34 Dose: 750 mg Documented by: [id number] Admin: 12/13/18 08:07 Dose: 750 mg Documented by: [id number] Admin: 12/12/18 20:41 Dose: 750 mg Documented by: [id number] Enoxaparin Sodium (Lovenox) 40 mg SQ Q24H LAUREANO Stop: 01/11/19 16:59 Last Admin: 12/14/18 17:03 Dose: 40 mg Documented by: [id number] Admin: 12/13/18 17:07 Dose: 40 mg Documented by: [id number] Admin: 12/12/18 18:02 Dose: 40 mg Documented by: [id number] Finasteride (Proscar) 5 mg PO QAM LAUREANO Stop: 01/12/19 08:59 Last Admin: 12/15/18 08:10 Dose: 5 mg Documented by: [id number] Admin: 12/13/18 08:08 Dose: Not Given Documented by: [id number] Guaifenesin (Organidin Nr) 100 mg PO TID LAUREANO Stop: 01/11/19 20:59 Last Admin: 12/15/18 07:41 Dose: 100 mg Documented by: [id number] Admin: 12/14/18 20:52 Dose: 100 mg Documented by: [id number] Admin: 12/14/18 13:41 Dose: 200 mg Documented by: [id number] Admin: 12/14/18 07:43 Dose: 100 mg Documented by: [id number] Admin: 12/13/18 20:34 Dose: 100 mg Documented by: [id number] Admin: 12/13/18 13:48 Dose: 200 mg Documented by: [id number] Admin: 12/13/18 08:08 Dose: 100 mg Documented by: [id number] Admin: 12/12/18 20:42 Dose: 100 mg Documented by: [id number] Piperacillin Sod/Tazobactam (Sod 4.5 gm/ Dextrose) 120 mls @ 30 mls/hr IV Q8H LAUREANO; Protocol Stop: 12/19/18 17:59 Last Admin: 12/15/18 09:09 Dose: 30 mls/hr Documented by: [id number] Infusion: 12/15/18 06:00 Dose: 0 mls/hr Documented by: [id number] Admin: 12/15/18 02:00 Dose: 30 mls/hr Documented by: [id number] Infusion: 12/14/18 23:49 Dose: 0 mls/hr Documented by: [id number] Admin: 12/14/18 17:02 Dose: 30 mls/hr Documented by: [id number] Infusion: 12/14/18 13:40 Dose: 0 mls/hr Documented by: [id number] Admin: 12/14/18 09:08 Dose: 30 mls/hr Documented by: [id number] Infusion: 12/14/18 06:00 Dose: 0 mls/hr Documented by: [id number] Admin: 12/14/18 01:37 Dose: 30 mls/hr Documented by: [id number] Infusion: 12/13/18 21:16 Dose: 0 mls/hr Documented by: [id number] Admin: 12/13/18 17:08 Dose: 30 mls/hr Documented by: [id number] Infusion: 12/13/18 13:26 Dose: 0 mls/hr Documented by: [id number] Admin: 12/13/18 09:17 Dose: 30 mls/hr Documented by: [id number] Infusion: 12/13/18 06:01 Dose: 0 mls/hr Documented by: [id number] Admin: 12/13/18 01:59 Dose: 30 mls/hr Documented by: [id number] Infusion: 12/12/18 22:10 Dose: 0 mls/hr Documented by: [id number] Admin: 12/12/18 18:02 Dose: 30 mls/hr Documented by: [id number] Vancomycin HCl 1,250 mg/ (Sodium Chloride) 275 mls @ 125 mls/hr IV Q10H LAUREANO Stop: 04/01/19 19:59 Last Infusion: 12/15/18 09:09 Dose: 0 mls/hr Documented by: [id number] Admin: 12/15/18 06:32 Dose: 125 mls/hr Documented by: [id number] Infusion: 12/14/18 23:49 Dose: 0 mls/hr Documented by: [id number] Admin: 12/14/18 21:11 Dose: 125 mls/hr Documented by: [id number] Ioversol (Optiray 320 125ml) 105 ml IV ONCE PRN PRN Reason: Interaction Checking Stop: 12/16/18 18:44 Last Admin: 12/12/18 18:46 Dose: 105 ml Documented by: [id number] Loratadine (Claritin) 10 mg PEG QAM LAUREANO Stop: 01/12/19 08:59 Last Admin: 12/15/18 07:54 Dose: 10 mg Documented by: [id number] Admin: 12/14/18 07:43 Dose: 10 mg Documented by: [id number] Admin: 12/13/18 08:07 Dose: 10 mg Documented by: [id number] Ranitidine HCl (Zantac) 150 mg PO BID LAUREANO Stop: 01/11/19 20:59 Last Admin: 12/15/18 07:43 Dose: 150 mg Documented by: [id number] Admin: 12/14/18 20:57 Dose: 150 mg Documented by: [id number] Admin: 12/14/18 07:44 Dose: 150 mg Documented by: [id number] Admin: 12/13/18 20:33 Dose: 150 mg Documented by: [id number] Admin: 12/13/18 08:09 Dose: 150 mg Documented by: [id number] Admin: 12/12/18 20:42 Dose: 150 mg Documented by: [id number] Sertraline HCl (Zoloft) 100 mg PO QAM LAUREANO Stop: 01/12/19 08:59 Last Admin: 12/15/18 07:54 Dose: 100 mg Documented by: [id number] Admin: 12/14/18 07:44 Dose: 100 mg Documented by: [id number] Admin: 12/13/18 08:09 Dose: 100 mg Documented by: [id number] Tamsulosin HCl (Flomax) 0.8 mg PEG HS LAUREANO Stop: 01/11/19 20:59 Last Admin: 12/14/18 21:27 Dose: 0.8 mg Documented by: [id number] Admin: 12/12/18 20:40 Dose: 0.8 mg Documented by: [id number] Discontinued Medications Albuterol (Duoneb) Confirm Administered Dose 3 ml .ROUTE .STK-MED ONE Stop: 12/12/18 11:22 Last Admin: 12/12/18 12:11 Dose: 3 ml Documented by: [id number] Albuterol (Duoneb) 3 ml INH NOW STA Stop: 12/12/18 11:28 Last Admin: 12/12/18 12:11 Dose: Not Given Documented by: [id number] Albuterol (Duoneb) 12 ml NEB ONE ONE Stop: 12/12/18 11:38 Last Admin: 12/12/18 11:46 Dose: 12 ml Documented by: [id number] Enoxaparin Sodium (Lovenox) 40 mg SQ Q24H LAUREANO Stop: 01/11/19 14:14 Last Admin: 12/14/18 15:19 Dose: Not Given Documented by: [id number] Sodium Chloride (Nss) 500 mls @ 999 mls/hr IV .Q31M LAUREANO Stop: 12/12/18 12:00 Last Infusion: 12/12/18 12:45 Dose: 0 mls/hr Documented by: [id number] Admin: 12/12/18 12:12 Dose: 999 mls/hr Documented by: [id number] Piperacillin Sod/Tazobactam Sod (Zosyn) 4.5 gm in 120 mls @ 200 mls/hr IV NOW STA Stop: 12/12/18 12:02 Last Infusion: 12/12/18 12:49 Dose: 0 mls/hr Documented by: [id number] Admin: 12/12/18 12:11 Dose: 200 mls/hr Documented by: [id number] Sodium Chloride (Nss 1000ml) 1,000 mls @ 125 mls/hr IV .Q8H LAUREANO Stop: 01/11/19 11:29 Last Infusion: 12/12/18 19:00 Dose: 0 mls/hr Documented by: [id number] Admin: 12/12/18 12:46 Dose: 125 mls/hr Documented by: [id number] Sodium Chloride (Nss 1000ml) 1,000 mls @ 999 mls/hr IV .Q1H1M ONE Stop: 12/12/18 17:15 Last Infusion: 12/12/18 17:22 Dose: 0 mls/hr Documented by: [id number] Admin: 12/12/18 16:15 Dose: 999 mls/hr Documented by: [id number] Vancomycin HCl 2,000 mg/ (Sodium Chloride) 540 mls @ 200 mls/hr IV NOW ONE Stop: 12/12/18 20:11 Last Infusion: 12/12/18 21:27 Dose: 0 mls/hr Documented by: [id number] Admin: 12/12/18 17:42 Dose: 200 mls/hr Documented by: [id number] Parenteral Electrolytes (Normosol-R) 1,000 mls @ 80 mls/hr IV .[id number] LAUREANO Stop: 01/11/19 17:29 Last Infusion: 12/13/18 09:10 Dose: 0 mls/hr Documented by: [id number] Admin: 12/13/18 05:45 Dose: 80 mls/hr Documented by: [id number] Infusion: 12/13/18 05:45 Dose: 80 mls/hr Documented by: [id number] Admin: 12/12/18 17:42 Dose: 80 mls/hr Documented by: [id number] Vancomycin HCl 1,250 mg/ (Sodium Chloride) 275 mls @ 125 mls/hr IV Q14H LAUREANO Stop: 12/19/18 07:59 Last Infusion: 12/13/18 09:10 Dose: 0 mls/hr Documented by: [id number] Admin: 12/13/18 08:03 Dose: 125 mls/hr Documented by: [id number] Vancomycin HCl 1,500 mg/ (Sodium Chloride) 530 mls @ 200 mls/hr IV NOW ONE Stop: 12/14/18 11:38 Last Infusion: 12/14/18 11:55 Dose: 0 mls/hr Documented by: [id number] Admin: 12/14/18 09:04 Dose: 200 mls/hr Documented by: [id number] Lorazepam (Ativan) 1 mg PO TID LAUREANO Stop: 01/11/19 20:59 Last Admin: 12/14/18 07:42 Dose: Not Given Documented by: [id number] Admin: 12/13/18 20:36 Dose: Not Given Documented by: [id number] Admin: 12/13/18 13:27 Dose: Not Given Documented by: [id number] Admin: 12/13/18 08:03 Dose: 1 mg Documented by: [id number] Admin: 12/12/18 20:45 Dose: 1 mg Documented by: [id number] Metoclopramide HCl (Reglan) 10 mg PO Q6 LAUREANO Stop: 01/12/19 00:00 Last Admin: 12/14/18 17:04 Dose: 10 mg Documented by: [id number] Admin: 12/14/18 11:58 Dose: 10 mg Documented by: [id number] Admin: 12/14/18 05:32 Dose: 10 mg Documented by: [id number] Admin: 12/13/18 23:32 Dose: 10 mg Documented by: [id number] Admin: 12/13/18 17:08 Dose: 10 mg Documented by: [id number] Admin: 12/13/18 13:48 Dose: 10 mg Documented by: [id number] Admin: 12/13/18 05:45 Dose: 10 mg Documented by: [id number] Admin: 12/12/18 23:31 Dose: 10 mg Documented by: [id number] Miscellaneous () Confirm Administered Dose 1 ea .ROUTE .STK-MED ONE Stop: 12/12/18 11:21 Last Admin: 12/12/18 12:23 Dose: Not Given Documented by: [id number] Nutritional Formula (Peptamen Intense Vhp) 1,000 ml PEG UD LAUREANO; Protocol Stop: 01/12/19 08:59 Last Admin: 12/13/18 15:32 Dose: 1,000 ml Documented by: [id number] Medical Decision Making Differential Diagnosis Differential diagnosis: Etiologies such as infections, reactive airway disease, COPD, pneumonia, pleural effusion, pulmonary edema, ARDS, pneumothorax, CHF, cardiac ischemia, cardiac tamponade, dysrhythmia, anemia, pulmonary embolism, musculoskeletal, gastrointestinal process, as well as others were entertained. Medical Records Attestation: I reviewed the patient's medical records. Home Medications Current Medication List: was personally reviewed by me Laboratory Data Attestation: I reviewed the patient's lab results. Result diagrams: 12/15/18 05:34 12/15/18 05:34 Lab Results 12/12/18 12/12/18 12/12/18 Range/Units 11:24 11:24 11:24 WBC 10.62 (4.8-10.8) K/uL RBC 3.43 L (4.7-6.1) M/uL Hgb 11.0 L (14.0-18.0) g/dL Hct 33.0 L (42-52) % MCV 96.2 (80-100) fL MCH 32.1 (25-34) pg MCHC 33.3 (32-36) g/dL RDW Std Deviation 57.4 H (36.4-46.3) fL RDW Coeff of Tyson 16.3 H (11.5-14.5) % Plt Count 216 (130-400) K/uL MPV 9.6 (7.4-10.4) fL Immature Gran % (Auto) 1.2 % Neut % (Auto) 71.9 % Lymph % (Auto) 5.3 % [place] % (Auto) 21.1 % Eos % (Auto) 0.4 % Baso % (Auto) 0.1 % Immature Gran # (Auto) 0.13 H (0.00-0.02) K/uL Neut # (Auto) 7.64 H (1.4-6.5) K/uL Lymph # (Auto) 0.56 L (1.2-3.4) K/uL [place] # (Auto) 2.24 H (0.11-0.59) K/uL Eos # (Auto) 0.04 (0-0.5) K/uL Baso # (Auto) 0.01 (0-0.2) K/uL Toxic Granulation RBC Morphology ESR (0-14) mm/hr PT 11.1 (9.0-12.0) Seconds INR 1.1 (0.9-1.1) APTT 30.8 (21.0-31.0) Seconds PTT Ratio 1.1 D-Dimer (0-500) ug/L FEU Sample Site POC pH (7.35-7.45) POC pCO2 (35-46) mmHg POC pO2 (80-95) mmHg POC HCO3 (19-24) jelly/L POC Total CO2 (24-31) mEq/l POC Base Excess (-9-1.8) jelly/L POC ABG O2 Sat (90-95) % Tahir Test O2 Delivery Device POC O2 Rate POC FiO2 % IPAP Sodium (136-145) mmol/L Potassium (3.5-5.1) mmol/L Chloride (98-107) mmol/L Carbon Dioxide (21-32) mmol/L Anion Gap (3-11) BUN (7-18) mg/dl Creatinine (0.6-1.4) mg/dl Est Cr Clr Drug Dosing Est GFR ( Amer) Est GFR (Non-Af Amer) BUN/Creatinine Ratio (10-20) Glucose (70-99) mg/dl POC Glucose (70-99) POC Lactic Acid Ivan (0.90-1.70) mmol/L Lactate (0.4-2.0) mmol/L Calcium (8.5-10.1) mg/dl Ionized Calcium (1.12-1.32) mmol/L Phosphorus (2.5-4.9) mg/dl Magnesium 2.5 H (1.8-2.4) mg/dl Total Bilirubin (0.2-1) mg/dl AST (15-37) U/L ALT (12-78) U/L Alkaline Phosphatase (45-117) U/L Troponin I < 0.015 (0-0.045) ng/ml C-Reactive Protein (0-0.29) mg/dl NT-Pro-B Natriuret Pep (0-900) pg/ml Total Protein (6.4-8.2) gm/dl Albumin (3.4-5.0) gm/dl Globulin (2.5-4.0) gm/dl Albumin/Globulin Ratio (0.9-2) Procalcitonin (0-0.5) ng/ml Random Cortisol mcg/dl Urine Color Urine Appearance (Clear) Urine pH (4.5-7.5) Ur Specific [place] (1.000-1.030) Urine Protein (Negative) Urine Glucose (UA) (Negative) Urine Ketones (Negative) Urine Blood (Negative) Urine Nitrite (Negative) Urine Bilirubin (Negative) Urine Urobilinogen (Negative) Ur Leukocyte Esterase (Negative) Urine WBC (Auto) (0-5) /hpf Urine RBC (Auto) (0-4) /hpf U Hyaline Cast (Auto) (0-5) /lpf U Epithel Cells (Auto) (0-5) /lpf Urine Bacteria (Auto) (Negative) Ur Renal Epithelial Cell Granular Casts (0) /lpf Urine Yeast Nasal Screen MRSA (PCR) (Negative) Vancomycin Trough (See Comment) mcg/ml Valproic Acid (50-100) mcg/ml Hepatitis A IgM Ab (NON-REACTIVE) Hep Bs Antigen (Neg) Hep B Core IgM Ab (NON-REACTIVE) Hepatitis C Antibody (Neg) Influenza Type A (PCR) (Neg) Influenza Type B (PCR) (Neg) Bld Cult Staph aureus PCR (Negative) Blood Culture MRSA PCR (Negative) 12/12/18 12/12/18 12/12/18 Range/Units 11:24 11:24 11:24 WBC (4.8-10.8) K/uL RBC (4.7-6.1) M/uL Hgb (14.0-18.0) g/dL Hct (42-52) % MCV (80-100) fL MCH (25-34) pg MCHC (32-36) g/dL RDW Std Deviation (36.4-46.3) fL RDW Coeff of Tyson (11.5-14.5) % Plt Count (130-400) K/uL MPV (7.4-10.4) fL Immature Gran % (Auto) % Neut % (Auto) % Lymph % (Auto) % [place] % (Auto) % Eos % (Auto) % Baso % (Auto) % Immature Gran # (Auto) (0.00-0.02) K/uL Neut # (Auto) (1.4-6.5) K/uL Lymph # (Auto) (1.2-3.4) K/uL [place] # (Auto) (0.11-0.59) K/uL Eos # (Auto) (0-0.5) K/uL Baso # (Auto) (0-0.2) K/uL Toxic Granulation RBC Morphology ESR (0-14) mm/hr PT (9.0-12.0) Seconds INR (0.9-1.1) APTT (21.0-31.0) Seconds PTT Ratio D-Dimer (0-500) ug/L FEU Sample Site POC pH (7.35-7.45) POC pCO2 (35-46) mmHg POC pO2 (80-95) mmHg POC HCO3 (19-24) jelly/L POC Total CO2 (24-31) mEq/l POC Base Excess (-9-1.8) jelly/L POC ABG O2 Sat (90-95) % Tahir Test O2 Delivery Device POC O2 Rate POC FiO2 % IPAP Sodium 133 L (136-145) mmol/L Potassium 4.4 (3.5-5.1) mmol/L Chloride 96 L (98-107) mmol/L Carbon Dioxide 33 H (21-32) mmol/L Anion Gap 4.0 (3-11) BUN 43 H (7-18) mg/dl Creatinine 1.03 (0.6-1.4) mg/dl Est Cr Clr Drug Dosing Not Reportable Est GFR ( Amer) 86.7 Est GFR (Non-Af Amer) 74.8 BUN/Creatinine Ratio 41.5 H (10-20) Glucose 149 H (70-99) mg/dl POC Glucose (70-99) POC Lactic Acid Ivan (0.90-1.70) mmol/L Lactate (0.4-2.0) mmol/L Calcium 8.3 L (8.5-10.1) mg/dl Ionized Calcium (1.12-1.32) mmol/L Phosphorus (2.5-4.9) mg/dl Magnesium (1.8-2.4) mg/dl Total Bilirubin 0.3 (0.2-1) mg/dl AST 63 H (15-37) U/L ALT 36 (12-78) U/L Alkaline Phosphatase 64 (45-117) U/L Troponin I (0-0.045) ng/ml C-Reactive Protein (0-0.29) mg/dl NT-Pro-B Natriuret Pep (0-900) pg/ml Total Protein 7.1 (6.4-8.2) gm/dl Albumin 2.0 L (3.4-5.0) gm/dl Globulin 5.1 H (2.5-4.0) gm/dl Albumin/Globulin Ratio 0.4 L (0.9-2) Procalcitonin (0-0.5) ng/ml Random Cortisol 25.81 mcg/dl Urine Color Urine Appearance (Clear) Urine pH (4.5-7.5) Ur Specific [place] (1.000-1.030) Urine Protein (Negative) Urine Glucose (UA) (Negative) Urine Ketones (Negative) Urine Blood (Negative) Urine Nitrite (Negative) Urine Bilirubin (Negative) Urine Urobilinogen (Negative) Ur Leukocyte Esterase (Negative) Urine WBC (Auto) (0-5) /hpf Urine RBC (Auto) (0-4) /hpf U Hyaline Cast (Auto) (0-5) /lpf U Epithel Cells (Auto) (0-5) /lpf Urine Bacteria (Auto) (Negative) Ur Renal Epithelial Cell Granular Casts (0) /lpf Urine Yeast Nasal Screen MRSA (PCR) (Negative) Vancomycin Trough (See Comment) mcg/ml Valproic Acid (50-100) mcg/ml Hepatitis A IgM Ab (NON-REACTIVE) Hep Bs Antigen Neg (Neg) Hep B Core IgM Ab (NON-REACTIVE) Hepatitis C Antibody Neg (Neg) Influenza Type A (PCR) (Neg) Influenza Type B (PCR) (Neg) Bld Cult Staph aureus PCR (Negative) Blood Culture MRSA PCR (Negative) 12/12/18 12/12/18 12/12/18 Range/Units 11:24 11:30 11:50 WBC (4.8-10.8) K/uL RBC (4.7-6.1) M/uL Hgb (14.0-18.0) g/dL Hct (42-52) % MCV (80-100) fL MCH (25-34) pg MCHC (32-36) g/dL RDW Std Deviation (36.4-46.3) fL RDW Coeff of Tyson (11.5-14.5) % Plt Count (130-400) K/uL MPV (7.4-10.4) fL Immature Gran % (Auto) % Neut % (Auto) % Lymph % (Auto) % [place] % (Auto) % Eos % (Auto) % Baso % (Auto) % Immature Gran # (Auto) (0.00-0.02) K/uL Neut # (Auto) (1.4-6.5) K/uL Lymph # (Auto) (1.2-3.4) K/uL [place] # (Auto) (0.11-0.59) K/uL Eos # (Auto) (0-0.5) K/uL Baso # (Auto) (0-0.2) K/uL Toxic Granulation RBC Morphology ESR (0-14) mm/hr PT (9.0-12.0) Seconds INR (0.9-1.1) APTT (21.0-31.0) Seconds PTT Ratio D-Dimer (0-500) ug/L FEU Sample Site POC pH (7.35-7.45) POC pCO2 (35-46) mmHg POC pO2 (80-95) mmHg POC HCO3 (19-24) jelly/L POC Total CO2 (24-31) mEq/l POC Base Excess (-9-1.8) jelly/L POC ABG O2 Sat (90-95) % Tahir Test O2 Delivery Device POC O2 Rate POC FiO2 % IPAP Sodium (136-145) mmol/L Potassium (3.5-5.1) mmol/L Chloride (98-107) mmol/L Carbon Dioxide (21-32) mmol/L Anion Gap (3-11) BUN (7-18) mg/dl Creatinine (0.6-1.4) mg/dl Est Cr Clr Drug Dosing Est GFR ( Amer) Est GFR (Non-Af Amer) BUN/Creatinine Ratio (10-20) Glucose (70-99) mg/dl POC Glucose (70-99) POC Lactic Acid Ivan 1.48 (0.90-1.70) mmol/L Lactate (0.4-2.0) mmol/L Calcium (8.5-10.1) mg/dl Ionized Calcium (1.12-1.32) mmol/L Phosphorus (2.5-4.9) mg/dl Magnesium (1.8-2.4) mg/dl Total Bilirubin (0.2-1) mg/dl AST (15-37) U/L ALT (12-78) U/L Alkaline Phosphatase (45-117) U/L Troponin I (0-0.045) ng/ml C-Reactive Protein (0-0.29) mg/dl NT-Pro-B Natriuret Pep (0-900) pg/ml Total Protein (6.4-8.2) gm/dl Albumin (3.4-5.0) gm/dl Globulin (2.5-4.0) gm/dl Albumin/Globulin Ratio (0.9-2) Procalcitonin (0-0.5) ng/ml Random Cortisol mcg/dl Urine Color Urine Appearance (Clear) Urine pH (4.5-7.5) Ur Specific [place] (1.000-1.030) Urine Protein (Negative) Urine Glucose (UA) (Negative) Urine Ketones (Negative) Urine Blood (Negative) Urine Nitrite (Negative) Urine Bilirubin (Negative) Urine Urobilinogen (Negative) Ur Leukocyte Esterase (Negative) Urine WBC (Auto) (0-5) /hpf Urine RBC (Auto) (0-4) /hpf U Hyaline Cast (Auto) (0-5) /lpf U Epithel Cells (Auto) (0-5) /lpf Urine Bacteria (Auto) (Negative) Ur Renal Epithelial Cell Granular Casts (0) /lpf Urine Yeast Nasal Screen MRSA (PCR) (Negative) Vancomycin Trough (See Comment) mcg/ml Valproic Acid (50-100) mcg/ml Hepatitis A IgM Ab NON-REACTIVE (NON-REACTIVE) Hep Bs Antigen (Neg) Hep B Core IgM Ab NON-REACTIVE (NON-REACTIVE) Hepatitis C Antibody (Neg) Influenza Type A (PCR) (Neg) Influenza Type B (PCR) (Neg) Bld Cult Staph aureus PCR Positive A (Negative) Blood Culture MRSA PCR Positive A (Negative) 12/12/18 12/12/18 12/12/18 Range/Units 12:04 12:05 16:05 WBC (4.8-10.8) K/uL RBC (4.7-6.1) M/uL Hgb (14.0-18.0) g/dL Hct (42-52) % MCV (80-100) fL MCH (25-34) pg MCHC (32-36) g/dL RDW Std Deviation (36.4-46.3) fL RDW Coeff of Tyson (11.5-14.5) % Plt Count (130-400) K/uL MPV (7.4-10.4) fL Immature Gran % (Auto) % Neut % (Auto) % Lymph % (Auto) % [place] % (Auto) % Eos % (Auto) % Baso % (Auto) % Immature Gran # (Auto) (0.00-0.02) K/uL Neut # (Auto) (1.4-6.5) K/uL Lymph # (Auto) (1.2-3.4) K/uL [place] # (Auto) (0.11-0.59) K/uL Eos # (Auto) (0-0.5) K/uL Baso # (Auto) (0-0.2) K/uL Toxic Granulation RBC Morphology ESR (0-14) mm/hr PT (9.0-12.0) Seconds INR (0.9-1.1) APTT (21.0-31.0) Seconds PTT Ratio D-Dimer (0-500) ug/L FEU Sample Site POC pH (7.35-7.45) POC pCO2 (35-46) mmHg POC pO2 (80-95) mmHg POC HCO3 (19-24) jelly/L POC Total CO2 (24-31) mEq/l POC Base Excess (-9-1.8) jelly/L POC ABG O2 Sat (90-95) % Tahir Test O2 Delivery Device POC O2 Rate POC FiO2 % IPAP Sodium (136-145) mmol/L Potassium (3.5-5.1) mmol/L Chloride (98-107) mmol/L Carbon Dioxide (21-32) mmol/L Anion Gap (3-11) BUN (7-18) mg/dl Creatinine (0.6-1.4) mg/dl Est Cr Clr Drug Dosing Est GFR ( Amer) Est GFR (Non-Af Amer) BUN/Creatinine Ratio (10-20) Glucose (70-99) mg/dl POC Glucose 156 H (70-99) POC Lactic Acid Ivan (0.90-1.70) mmol/L Lactate (0.4-2.0) mmol/L Calcium (8.5-10.1) mg/dl Ionized Calcium (1.12-1.32) mmol/L Phosphorus (2.5-4.9) mg/dl Magnesium (1.8-2.4) mg/dl Total Bilirubin (0.2-1) mg/dl AST (15-37) U/L ALT (12-78) U/L Alkaline Phosphatase (45-117) U/L Troponin I (0-0.045) ng/ml C-Reactive Protein (0-0.29) mg/dl NT-Pro-B Natriuret Pep (0-900) pg/ml Total Protein (6.4-8.2) gm/dl Albumin (3.4-5.0) gm/dl Globulin (2.5-4.0) gm/dl Albumin/Globulin Ratio (0.9-2) Procalcitonin (0-0.5) ng/ml Random Cortisol mcg/dl Urine Color Dark Yellow Urine Appearance Cloudy H (Clear) Urine pH 5.0 (4.5-7.5) Ur Specific [place] 1.024 (1.000-1.030) Urine Protein Negative (Negative) Urine Glucose (UA) Negative (Negative) Urine Ketones Negative (Negative) Urine Blood Negative (Negative) Urine Nitrite Negative (Negative) Urine Bilirubin Negative (Negative) Urine Urobilinogen Negative (Negative) Ur Leukocyte Esterase 2+ H (Negative) Urine WBC (Auto) 10-30 H (0-5) /hpf Urine RBC (Auto) 0-4 (0-4) /hpf U Hyaline Cast (Auto) 10-30 H (0-5) /lpf U Epithel Cells (Auto) >30 H (0-5) /lpf Urine Bacteria (Auto) 1+ H (Negative) Ur Renal Epithelial Cell Not Reportable Granular Casts 5-10 H (0) /lpf Urine Yeast Not Reportable Nasal Screen MRSA (PCR) (Negative) Vancomycin Trough (See Comment) mcg/ml Valproic Acid (50-100) mcg/ml Hepatitis A IgM Ab (NON-REACTIVE) Hep Bs Antigen (Neg) Hep B Core IgM Ab (NON-REACTIVE) Hepatitis C Antibody (Neg) Influenza Type A (PCR) Neg for Influ A (Neg) Influenza Type B (PCR) Neg for Influ B (Neg) Bld Cult Staph aureus PCR (Negative) Blood Culture MRSA PCR (Negative) 12/12/18 12/12/18 12/12/18 Range/Units 16:11 16:39 16:39 WBC (4.8-10.8) K/uL RBC (4.7-6.1) M/uL Hgb (14.0-18.0) g/dL Hct (42-52) % MCV (80-100) fL MCH (25-34) pg MCHC (32-36) g/dL RDW Std Deviation (36.4-46.3) fL RDW Coeff of Tyson (11.5-14.5) % Plt Count (130-400) K/uL MPV (7.4-10.4) fL Immature Gran % (Auto) % Neut % (Auto) % Lymph % (Auto) % [place] % (Auto) % Eos % (Auto) % Baso % (Auto) % Immature Gran # (Auto) (0.00-0.02) K/uL Neut # (Auto) (1.4-6.5) K/uL Lymph # (Auto) (1.2-3.4) K/uL [place] # (Auto) (0.11-0.59) K/uL Eos # (Auto) (0-0.5) K/uL Baso # (Auto) (0-0.2) K/uL Toxic Granulation RBC Morphology ESR (0-14) mm/hr PT (9.0-12.0) Seconds INR (0.9-1.1) APTT (21.0-31.0) Seconds PTT Ratio D-Dimer 4400 H* (0-500) ug/L FEU Sample Site POC pH (7.35-7.45) POC pCO2 (35-46) mmHg POC pO2 (80-95) mmHg POC HCO3 (19-24) jelly/L POC Total CO2 (24-31) mEq/l POC Base Excess (-9-1.8) jelly/L POC ABG O2 Sat (90-95) % Tahir Test O2 Delivery Device POC O2 Rate POC FiO2 % IPAP Sodium (136-145) mmol/L Potassium (3.5-5.1) mmol/L Chloride (98-107) mmol/L Carbon Dioxide (21-32) mmol/L Anion Gap (3-11) BUN (7-18) mg/dl Creatinine (0.6-1.4) mg/dl Est Cr Clr Drug Dosing Est GFR ( Amer) Est GFR (Non-Af Amer) BUN/Creatinine Ratio (10-20) Glucose (70-99) mg/dl POC Glucose (70-99) POC Lactic Acid Ivan (0.90-1.70) mmol/L Lactate 3.1 H* (0.4-2.0) mmol/L Calcium (8.5-10.1) mg/dl Ionized Calcium (1.12-1.32) mmol/L Phosphorus (2.5-4.9) mg/dl Magnesium (1.8-2.4) mg/dl Total Bilirubin (0.2-1) mg/dl AST (15-37) U/L ALT (12-78) U/L Alkaline Phosphatase (45-117) U/L Troponin I (0-0.045) ng/ml C-Reactive Protein (0-0.29) mg/dl NT-Pro-B Natriuret Pep (0-900) pg/ml Total Protein (6.4-8.2) gm/dl Albumin (3.4-5.0) gm/dl Globulin (2.5-4.0) gm/dl Albumin/Globulin Ratio (0.9-2) Procalcitonin (0-0.5) ng/ml Random Cortisol mcg/dl Urine Color Urine Appearance (Clear) Urine pH (4.5-7.5) Ur Specific [place] (1.000-1.030) Urine Protein (Negative) Urine Glucose (UA) (Negative) Urine Ketones (Negative) Urine Blood (Negative) Urine Nitrite (Negative) Urine Bilirubin (Negative) Urine Urobilinogen (Negative) Ur Leukocyte Esterase (Negative) Urine WBC (Auto) (0-5) /hpf Urine RBC (Auto) (0-4) /hpf U Hyaline Cast (Auto) (0-5) /lpf U Epithel Cells (Auto) (0-5) /lpf Urine Bacteria (Auto) (Negative) Ur Renal Epithelial Cell Granular Casts (0) /lpf Urine Yeast Nasal Screen MRSA (PCR) Positive A (Negative) Vancomycin Trough (See Comment) mcg/ml Valproic Acid (50-100) mcg/ml Hepatitis A IgM Ab (NON-REACTIVE) Hep Bs Antigen (Neg) Hep B Core IgM Ab (NON-REACTIVE) Hepatitis C Antibody (Neg) Influenza Type A (PCR) (Neg) Influenza Type B (PCR) (Neg) Bld Cult Staph aureus PCR (Negative) Blood Culture MRSA PCR (Negative) 12/12/18 12/12/18 12/12/18 Range/Units 16:39 16:39 16:39 WBC (4.8-10.8) K/uL RBC (4.7-6.1) M/uL Hgb (14.0-18.0) g/dL Hct (42-52) % MCV (80-100) fL MCH (25-34) pg MCHC (32-36) g/dL RDW Std Deviation (36.4-46.3) fL RDW Coeff of Tyson (11.5-14.5) % Plt Count (130-400) K/uL MPV (7.4-10.4) fL Immature Gran % (Auto) % Neut % (Auto) % Lymph % (Auto) % [place] % (Auto) % Eos % (Auto) % Baso % (Auto) % Immature Gran # (Auto) (0.00-0.02) K/uL Neut # (Auto) (1.4-6.5) K/uL Lymph # (Auto) (1.2-3.4) K/uL [place] # (Auto) (0.11-0.59) K/uL Eos # (Auto) (0-0.5) K/uL Baso # (Auto) (0-0.2) K/uL Toxic Granulation RBC Morphology ESR 72 H (0-14) mm/hr PT (9.0-12.0) Seconds INR (0.9-1.1) APTT (21.0-31.0) Seconds PTT Ratio D-Dimer (0-500) ug/L FEU Sample Site POC pH (7.35-7.45) POC pCO2 (35-46) mmHg POC pO2 (80-95) mmHg POC HCO3 (19-24) jelly/L POC Total CO2 (24-31) mEq/l POC Base Excess (-9-1.8) jelly/L POC ABG O2 Sat (90-95) % Tahir Test O2 Delivery Device POC O2 Rate POC FiO2 % IPAP Sodium 138 (136-145) mmol/L Potassium 4.4 (3.5-5.1) mmol/L Chloride 100 (98-107) mmol/L Carbon Dioxide 33 H (21-32) mmol/L Anion Gap 6.0 (3-11) BUN 40 H (7-18) mg/dl Creatinine 1.01 (0.6-1.4) mg/dl Est Cr Clr Drug Dosing 68.7 Est GFR ( Amer) 88.8 Est GFR (Non-Af Amer) 76.6 BUN/Creatinine Ratio 39.2 H (10-20) Glucose 129 H (70-99) mg/dl POC Glucose (70-99) POC Lactic Acid Ivan (0.90-1.70) mmol/L Lactate (0.4-2.0) mmol/L Calcium 8.5 (8.5-10.1) mg/dl Ionized Calcium (1.12-1.32) mmol/L Phosphorus 5.5 H (2.5-4.9) mg/dl Magnesium 2.3 (1.8-2.4) mg/dl Total Bilirubin 0.3 (0.2-1) mg/dl AST 56 H (15-37) U/L ALT 36 (12-78) U/L Alkaline Phosphatase 60 (45-117) U/L Troponin I < 0.015 (0-0.045) ng/ml C-Reactive Protein 27.10 H (0-0.29) mg/dl NT-Pro-B Natriuret Pep 852 (0-900) pg/ml Total Protein 6.6 (6.4-8.2) gm/dl Albumin 1.9 L (3.4-5.0) gm/dl Globulin 4.7 H (2.5-4.0) gm/dl Albumin/Globulin Ratio 0.4 L (0.9-2) Procalcitonin 1.74 H (0-0.5) ng/ml Random Cortisol mcg/dl Urine Color Urine Appearance (Clear) Urine pH (4.5-7.5) Ur Specific [place] (1.000-1.030) Urine Protein (Negative) Urine Glucose (UA) (Negative) Urine Ketones (Negative) Urine Blood (Negative) Urine Nitrite (Negative) Urine Bilirubin (Negative) Urine Urobilinogen (Negative) Ur Leukocyte Esterase (Negative) Urine WBC (Auto) (0-5) /hpf Urine RBC (Auto) (0-4) /hpf U Hyaline Cast (Auto) (0-5) /lpf U Epithel Cells (Auto) (0-5) /lpf Urine Bacteria (Auto) (Negative) Ur Renal Epithelial Cell Granular Casts (0) /lpf Urine Yeast Nasal Screen MRSA (PCR) (Negative) Vancomycin Trough (See Comment) mcg/ml Valproic Acid (50-100) mcg/ml Hepatitis A IgM Ab (NON-REACTIVE) Hep Bs Antigen (Neg) Hep B Core IgM Ab (NON-REACTIVE) Hepatitis C Antibody (Neg) Influenza Type A (PCR) (Neg) Influenza Type B (PCR) (Neg) Bld Cult Staph aureus PCR (Negative) Blood Culture MRSA PCR (Negative) 12/12/18 12/12/18 12/12/18 Range/Units 16:39 16:39 16:54 WBC (4.8-10.8) K/uL RBC (4.7-6.1) M/uL Hgb (14.0-18.0) g/dL Hct (42-52) % MCV (80-100) fL MCH (25-34) pg MCHC (32-36) g/dL RDW Std Deviation (36.4-46.3) fL RDW Coeff of Tyson (11.5-14.5) % Plt Count (130-400) K/uL MPV (7.4-10.4) fL Immature Gran % (Auto) % Neut % (Auto) % Lymph % (Auto) % [place] % (Auto) % Eos % (Auto) % Baso % (Auto) % Immature Gran # (Auto) (0.00-0.02) K/uL Neut # (Auto) (1.4-6.5) K/uL Lymph # (Auto) (1.2-3.4) K/uL [place] # (Auto) (0.11-0.59) K/uL Eos # (Auto) (0-0.5) K/uL Baso # (Auto) (0-0.2) K/uL Toxic Granulation RBC Morphology ESR (0-14) mm/hr PT (9.0-12.0) Seconds INR (0.9-1.1) APTT (21.0-31.0) Seconds PTT Ratio D-Dimer (0-500) ug/L FEU Sample Site R Radial POC pH 7.39 (7.35-7.45) POC pCO2 48 H (35-46) mmHg POC pO2 131 H (80-95) mmHg POC HCO3 29 H (19-24) jelly/L POC Total CO2 31 (24-31) mEq/l POC Base Excess 4.0 H (-9-1.8) jelly/L POC ABG O2 Sat 99.0 H (90-95) % Tahir Test Pass O2 Delivery Device BIPAP POC O2 Rate 16 POC FiO2 60 % IPAP 13 Sodium (136-145) mmol/L Potassium (3.5-5.1) mmol/L Chloride (98-107) mmol/L Carbon Dioxide (21-32) mmol/L Anion Gap (3-11) BUN (7-18) mg/dl Creatinine (0.6-1.4) mg/dl Est Cr Clr Drug Dosing Est GFR ( Amer) Est GFR (Non-Af Amer) BUN/Creatinine Ratio (10-20) Glucose (70-99) mg/dl POC Glucose (70-99) POC Lactic Acid Ivan (0.90-1.70) mmol/L Lactate (0.4-2.0) mmol/L Calcium (8.5-10.1) mg/dl Ionized Calcium 1.09 L (1.12-1.32) mmol/L Phosphorus (2.5-4.9) mg/dl Magnesium (1.8-2.4) mg/dl Total Bilirubin (0.2-1) mg/dl AST (15-37) U/L ALT (12-78) U/L Alkaline Phosphatase (45-117) U/L Troponin I (0-0.045) ng/ml C-Reactive Protein (0-0.29) mg/dl NT-Pro-B Natriuret Pep (0-900) pg/ml Total Protein (6.4-8.2) gm/dl Albumin (3.4-5.0) gm/dl Globulin (2.5-4.0) gm/dl Albumin/Globulin Ratio (0.9-2) Procalcitonin (0-0.5) ng/ml Random Cortisol mcg/dl Urine Color Urine Appearance (Clear) Urine pH (4.5-7.5) Ur Specific [place] (1.000-1.030) Urine Protein (Negative) Urine Glucose (UA) (Negative) Urine Ketones (Negative) Urine Blood (Negative) Urine Nitrite (Negative) Urine Bilirubin (Negative) Urine Urobilinogen (Negative) Ur Leukocyte Esterase (Negative) Urine WBC (Auto) (0-5) /hpf Urine RBC (Auto) (0-4) /hpf U Hyaline Cast (Auto) (0-5) /lpf U Epithel Cells (Auto) (0-5) /lpf Urine Bacteria (Auto) (Negative) Ur Renal Epithelial Cell Granular Casts (0) /lpf Urine Yeast Nasal Screen MRSA (PCR) (Negative) Vancomycin Trough (See Comment) mcg/ml Valproic Acid 51 (50-100) mcg/ml Hepatitis A IgM Ab (NON-REACTIVE) Hep Bs Antigen (Neg) Hep B Core IgM Ab (NON-REACTIVE) Hepatitis C Antibody (Neg) Influenza Type A (PCR) (Neg) Influenza Type B (PCR) (Neg) Bld Cult Staph aureus PCR (Negative) Blood Culture MRSA PCR (Negative) 12/13/18 12/13/18 12/13/18 Range/Units 05:06 07:46 10:25 WBC (4.8-10.8) K/uL RBC (4.7-6.1) M/uL Hgb (14.0-18.0) g/dL Hct (42-52) % MCV (80-100) fL MCH (25-34) pg MCHC (32-36) g/dL RDW Std Deviation (36.4-46.3) fL RDW Coeff of Tyson (11.5-14.5) % Plt Count (130-400) K/uL MPV (7.4-10.4) fL Immature Gran % (Auto) % Neut % (Auto) % Lymph % (Auto) % [place] % (Auto) % Eos % (Auto) % Baso % (Auto) % Immature Gran # (Auto) (0.00-0.02) K/uL Neut # (Auto) (1.4-6.5) K/uL Lymph # (Auto) (1.2-3.4) K/uL [place] # (Auto) (0.11-0.59) K/uL Eos # (Auto) (0-0.5) K/uL Baso # (Auto) (0-0.2) K/uL Toxic Granulation RBC Morphology ESR (0-14) mm/hr PT (9.0-12.0) Seconds INR (0.9-1.1) APTT (21.0-31.0) Seconds PTT Ratio D-Dimer (0-500) ug/L FEU Sample Site POC pH (7.35-7.45) POC pCO2 (35-46) mmHg POC pO2 (80-95) mmHg POC HCO3 (19-24) jelly/L POC Total CO2 (24-31) mEq/l POC Base Excess (-9-1.8) jelly/L POC ABG O2 Sat (90-95) % Tahir Test O2 Delivery Device POC O2 Rate POC FiO2 % IPAP Sodium 139 139 (136-145) mmol/L Potassium 4.4 4.4 (3.5-5.1) mmol/L Chloride 101 101 (98-107) mmol/L Carbon Dioxide 32 33 H (21-32) mmol/L Anion Gap 6.0 5.0 (3-11) BUN 36 H 33 H (7-18) mg/dl Creatinine 0.84 0.78 (0.6-1.4) mg/dl Est Cr Clr Drug Dosing 82.6 88.9 Est GFR ( Amer) 105.0 108.3 Est GFR (Non-Af Amer) 90.6 93.4 BUN/Creatinine Ratio 42.7 H 42.9 H (10-20) Glucose 95 84 (70-99) mg/dl POC Glucose 81 (70-99) POC Lactic Acid Ivan (0.90-1.70) mmol/L Lactate (0.4-2.0) mmol/L Calcium 8.4 L 8.0 L (8.5-10.1) mg/dl Ionized Calcium (1.12-1.32) mmol/L Phosphorus 4.3 D (2.5-4.9) mg/dl Magnesium 2.4 (1.8-2.4) mg/dl Total Bilirubin 0.3 (0.2-1) mg/dl AST 55 H (15-37) U/L ALT 41 (12-78) U/L Alkaline Phosphatase 56 (45-117) U/L Troponin I (0-0.045) ng/ml C-Reactive Protein (0-0.29) mg/dl NT-Pro-B Natriuret Pep (0-900) pg/ml Total Protein 6.1 L (6.4-8.2) gm/dl Albumin 1.7 L (3.4-5.0) gm/dl Globulin 4.4 H (2.5-4.0) gm/dl Albumin/Globulin Ratio 0.4 L (0.9-2) Procalcitonin (0-0.5) ng/ml Random Cortisol mcg/dl Urine Color Urine Appearance (Clear) Urine pH (4.5-7.5) Ur Specific [place] (1.000-1.030) Urine Protein (Negative) Urine Glucose (UA) (Negative) Urine Ketones (Negative) Urine Blood (Negative) Urine Nitrite (Negative) Urine Bilirubin (Negative) Urine Urobilinogen (Negative) Ur Leukocyte Esterase (Negative) Urine WBC (Auto) (0-5) /hpf Urine RBC (Auto) (0-4) /hpf U Hyaline Cast (Auto) (0-5) /lpf U Epithel Cells (Auto) (0-5) /lpf Urine Bacteria (Auto) (Negative) Ur Renal Epithelial Cell Granular Casts (0) /lpf Urine Yeast Nasal Screen MRSA (PCR) (Negative) Vancomycin Trough (See Comment) mcg/ml Valproic Acid (50-100) mcg/ml Hepatitis A IgM Ab (NON-REACTIVE) Hep Bs Antigen (Neg) Hep B Core IgM Ab (NON-REACTIVE) Hepatitis C Antibody (Neg) Influenza Type A (PCR) (Neg) Influenza Type B (PCR) (Neg) Bld Cult Staph aureus PCR (Negative) Blood Culture MRSA PCR (Negative) 12/13/18 12/13/18 12/13/18 Range/Units 16:29 16:42 22:19 WBC (4.8-10.8) K/uL RBC (4.7-6.1) M/uL Hgb (14.0-18.0) g/dL Hct (42-52) % MCV (80-100) fL MCH (25-34) pg MCHC (32-36) g/dL RDW Std Deviation (36.4-46.3) fL RDW Coeff of Tyson (11.5-14.5) % Plt Count (130-400) K/uL MPV (7.4-10.4) fL Immature Gran % (Auto) % Neut % (Auto) % Lymph % (Auto) % [place] % (Auto) % Eos % (Auto) % Baso % (Auto) % Immature Gran # (Auto) (0.00-0.02) K/uL Neut # (Auto) (1.4-6.5) K/uL Lymph # (Auto) (1.2-3.4) K/uL [place] # (Auto) (0.11-0.59) K/uL Eos # (Auto) (0-0.5) K/uL Baso # (Auto) (0-0.2) K/uL Toxic Granulation RBC Morphology ESR (0-14) mm/hr PT (9.0-12.0) Seconds INR (0.9-1.1) APTT (21.0-31.0) Seconds PTT Ratio D-Dimer (0-500) ug/L FEU Sample Site R Radial POC pH 7.38 (7.35-7.45) POC pCO2 56 H (35-46) mmHg POC pO2 260 H (80-95) mmHg POC HCO3 33 H (19-24) jelly/L POC Total CO2 34 H (24-31) mEq/l POC Base Excess 7.0 H (-9-1.8) jelly/L POC ABG O2 Sat 100.0 H (90-95) % Tahir Test Pass O2 Delivery Device BIPAP POC O2 Rate 16 POC FiO2 60 % IPAP 17 Sodium (136-145) mmol/L Potassium (3.5-5.1) mmol/L Chloride (98-107) mmol/L Carbon Dioxide (21-32) mmol/L Anion Gap (3-11) BUN (7-18) mg/dl Creatinine (0.6-1.4) mg/dl Est Cr Clr Drug Dosing Est GFR ( Amer) Est GFR (Non-Af Amer) BUN/Creatinine Ratio (10-20) Glucose (70-99) mg/dl POC Glucose 71 71 (70-99) POC Lactic Acid Ivan (0.90-1.70) mmol/L Lactate (0.4-2.0) mmol/L Calcium (8.5-10.1) mg/dl Ionized Calcium (1.12-1.32) mmol/L Phosphorus (2.5-4.9) mg/dl Magnesium (1.8-2.4) mg/dl Total Bilirubin (0.2-1) mg/dl AST (15-37) U/L ALT (12-78) U/L Alkaline Phosphatase (45-117) U/L Troponin I (0-0.045) ng/ml C-Reactive Protein (0-0.29) mg/dl NT-Pro-B Natriuret Pep (0-900) pg/ml Total Protein (6.4-8.2) gm/dl Albumin (3.4-5.0) gm/dl Globulin (2.5-4.0) gm/dl Albumin/Globulin Ratio (0.9-2) Procalcitonin (0-0.5) ng/ml Random Cortisol mcg/dl Urine Color Urine Appearance (Clear) Urine pH (4.5-7.5) Ur Specific [place] (1.000-1.030) Urine Protein (Negative) Urine Glucose (UA) (Negative) Urine Ketones (Negative) Urine Blood (Negative) Urine Nitrite (Negative) Urine Bilirubin (Negative) Urine Urobilinogen (Negative) Ur Leukocyte Esterase (Negative) Urine WBC (Auto) (0-5) /hpf Urine RBC (Auto) (0-4) /hpf U Hyaline Cast (Auto) (0-5) /lpf U Epithel Cells (Auto) (0-5) /lpf Urine Bacteria (Auto) (Negative) Ur Renal Epithelial Cell Granular Casts (0) /lpf Urine Yeast Nasal Screen MRSA (PCR) (Negative) Vancomycin Trough (See Comment) mcg/ml Valproic Acid (50-100) mcg/ml Hepatitis A IgM Ab (NON-REACTIVE) Hep Bs Antigen (Neg) Hep B Core IgM Ab (NON-REACTIVE) Hepatitis C Antibody (Neg) Influenza Type A (PCR) (Neg) Influenza Type B (PCR) (Neg) Bld Cult Staph aureus PCR (Negative) Blood Culture MRSA PCR (Negative) 12/14/18 12/14/18 12/14/18 Range/Units 04:51 07:19 08:11 WBC 9.63 (4.8-10.8) K/uL RBC 2.72 L (4.7-6.1) M/uL Hgb 8.6 L (14.0-18.0) g/dL Hct 26.6 L (42-52) % MCV 97.8 (80-100) fL MCH 31.6 (25-34) pg MCHC 32.3 (32-36) g/dL RDW Std Deviation 58.8 H (36.4-46.3) fL RDW Coeff of Tyson 16.3 H (11.5-14.5) % Plt Count 208 (130-400) K/uL MPV 8.9 (7.4-10.4) fL Immature Gran % (Auto) 4.2 % Neut % (Auto) 70.3 % Lymph % (Auto) 9.9 % [place] % (Auto) 11.9 % Eos % (Auto) 3.4 % Baso % (Auto) 0.3 % Immature Gran # (Auto) 0.40 H (0.00-0.02) K/uL Neut # (Auto) 6.77 H (1.4-6.5) K/uL Lymph # (Auto) 0.95 L (1.2-3.4) K/uL [place] # (Auto) 1.15 H (0.11-0.59) K/uL Eos # (Auto) 0.33 (0-0.5) K/uL Baso # (Auto) 0.03 (0-0.2) K/uL Toxic Granulation RBC Morphology Unremarkable ESR (0-14) mm/hr PT (9.0-12.0) Seconds INR (0.9-1.1) APTT (21.0-31.0) Seconds PTT Ratio D-Dimer (0-500) ug/L FEU Sample Site POC pH (7.35-7.45) POC pCO2 (35-46) mmHg POC pO2 (80-95) mmHg POC HCO3 (19-24) jelly/L POC Total CO2 (24-31) mEq/l POC Base Excess (-9-1.8) jelly/L POC ABG O2 Sat (90-95) % Tahir Test O2 Delivery Device POC O2 Rate POC FiO2 % IPAP Sodium (136-145) mmol/L Potassium (3.5-5.1) mmol/L Chloride (98-107) mmol/L Carbon Dioxide (21-32) mmol/L Anion Gap (3-11) BUN (7-18) mg/dl Creatinine 0.67 (0.6-1.4) mg/dl Est Cr Clr Drug Dosing 103.5 Est GFR ( Amer) 115.2 Est GFR (Non-Af Amer) 99.4 BUN/Creatinine Ratio (10-20) Glucose (70-99) mg/dl POC Glucose 79 (70-99) POC Lactic Acid Ivan (0.90-1.70) mmol/L Lactate (0.4-2.0) mmol/L Calcium (8.5-10.1) mg/dl Ionized Calcium (1.12-1.32) mmol/L Phosphorus 3.9 (2.5-4.9) mg/dl Magnesium (1.8-2.4) mg/dl Total Bilirubin (0.2-1) mg/dl AST (15-37) U/L ALT (12-78) U/L Alkaline Phosphatase (45-117) U/L Troponin I (0-0.045) ng/ml C-Reactive Protein (0-0.29) mg/dl NT-Pro-B Natriuret Pep (0-900) pg/ml Total Protein (6.4-8.2) gm/dl Albumin (3.4-5.0) gm/dl Globulin (2.5-4.0) gm/dl Albumin/Globulin Ratio (0.9-2) Procalcitonin (0-0.5) ng/ml Random Cortisol mcg/dl Urine Color Urine Appearance (Clear) Urine pH (4.5-7.5) Ur Specific [place] (1.000-1.030) Urine Protein (Negative) Urine Glucose (UA) (Negative) Urine Ketones (Negative) Urine Blood (Negative) Urine Nitrite (Negative) Urine Bilirubin (Negative) Urine Urobilinogen (Negative) Ur Leukocyte Esterase (Negative) Urine WBC (Auto) (0-5) /hpf Urine RBC (Auto) (0-4) /hpf U Hyaline Cast (Auto) (0-5) /lpf U Epithel Cells (Auto) (0-5) /lpf Urine Bacteria (Auto) (Negative) Ur Renal Epithelial Cell Granular Casts (0) /lpf Urine Yeast Nasal Screen MRSA (PCR) (Negative) Vancomycin Trough (See Comment) mcg/ml Valproic Acid (50-100) mcg/ml Hepatitis A IgM Ab (NON-REACTIVE) Hep Bs Antigen (Neg) Hep B Core IgM Ab (NON-REACTIVE) Hepatitis C Antibody (Neg) Influenza Type A (PCR) (Neg) Influenza Type B (PCR) (Neg) Bld Cult Staph aureus PCR (Negative) Blood Culture MRSA PCR (Negative) 12/14/18 12/15/18 12/15/18 Range/Units 08:11 05:34 05:34 WBC 7.65 (4.8-10.8) K/uL RBC 3.06 L (4.7-6.1) M/uL Hgb 9.4 L (14.0-18.0) g/dL Hct 29.4 L (42-52) % MCV 96.1 (80-100) fL MCH 30.7 (25-34) pg MCHC 32.0 (32-36) g/dL RDW Std Deviation 56.3 H (36.4-46.3) fL RDW Coeff of Tyson 16.0 H (11.5-14.5) % Plt Count 208 (130-400) K/uL MPV 8.9 (7.4-10.4) fL Immature Gran % (Auto) 7.7 % Neut % (Auto) 66.8 % Lymph % (Auto) 7.6 % [place] % (Auto) 14.5 % Eos % (Auto) 3.0 % Baso % (Auto) 0.4 % Immature Gran # (Auto) 0.59 H (0.00-0.02) K/uL Neut # (Auto) 5.11 (1.4-6.5) K/uL Lymph # (Auto) 0.58 L (1.2-3.4) K/uL [place] # (Auto) 1.11 H (0.11-0.59) K/uL Eos # (Auto) 0.23 (0-0.5) K/uL Baso # (Auto) 0.03 (0-0.2) K/uL Toxic Granulation 1+ RBC Morphology ESR (0-14) mm/hr PT (9.0-12.0) Seconds INR (0.9-1.1) APTT (21.0-31.0) Seconds PTT Ratio D-Dimer (0-500) ug/L FEU Sample Site POC pH (7.35-7.45) POC pCO2 (35-46) mmHg POC pO2 (80-95) mmHg POC HCO3 (19-24) jelly/L POC Total CO2 (24-31) mEq/l POC Base Excess (-9-1.8) jelly/L POC ABG O2 Sat (90-95) % Tahir Test O2 Delivery Device POC O2 Rate POC FiO2 % IPAP Sodium 139 (136-145) mmol/L Potassium 3.7 D (3.5-5.1) mmol/L Chloride 101 (98-107) mmol/L Carbon Dioxide 35 H (21-32) mmol/L Anion Gap 3.0 (3-11) BUN 28 H (7-18) mg/dl Creatinine 0.63 0.48 L (0.6-1.4) mg/dl Est Cr Clr Drug Dosing 110.1 144.5 Est GFR ( Amer) 118.2 132.2 Est GFR (Non-Af Amer) 102.0 114.0 BUN/Creatinine Ratio 43.9 H (10-20) Glucose 73 (70-99) mg/dl POC Glucose (70-99) POC Lactic Acid Ivan (0.90-1.70) mmol/L Lactate (0.4-2.0) mmol/L Calcium 8.6 (8.5-10.1) mg/dl Ionized Calcium (1.12-1.32) mmol/L Phosphorus 3.4 (2.5-4.9) mg/dl Magnesium 2.2 (1.8-2.4) mg/dl Total Bilirubin (0.2-1) mg/dl AST (15-37) U/L ALT (12-78) U/L Alkaline Phosphatase (45-117) U/L Troponin I (0-0.045) ng/ml C-Reactive Protein (0-0.29) mg/dl NT-Pro-B Natriuret Pep (0-900) pg/ml Total Protein (6.4-8.2) gm/dl Albumin (3.4-5.0) gm/dl Globulin (2.5-4.0) gm/dl Albumin/Globulin Ratio (0.9-2) Procalcitonin (0-0.5) ng/ml Random Cortisol mcg/dl Urine Color Urine Appearance (Clear) Urine pH (4.5-7.5) Ur Specific [place] (1.000-1.030) Urine Protein (Negative) Urine Glucose (UA) (Negative) Urine Ketones (Negative) Urine Blood (Negative) Urine Nitrite (Negative) Urine Bilirubin (Negative) Urine Urobilinogen (Negative) Ur Leukocyte Esterase (Negative) Urine WBC (Auto) (0-5) /hpf Urine RBC (Auto) (0-4) /hpf U Hyaline Cast (Auto) (0-5) /lpf U Epithel Cells (Auto) (0-5) /lpf Urine Bacteria (Auto) (Negative) Ur Renal Epithelial Cell Granular Casts (0) /lpf Urine Yeast Nasal Screen MRSA (PCR) (Negative) Vancomycin Trough (See Comment) mcg/ml Valproic Acid (50-100) mcg/ml Hepatitis A IgM Ab (NON-REACTIVE) Hep Bs Antigen (Neg) Hep B Core IgM Ab (NON-REACTIVE) Hepatitis C Antibody (Neg) Influenza Type A (PCR) (Neg) Influenza Type B (PCR) (Neg) Bld Cult Staph aureus PCR (Negative) Blood Culture MRSA PCR (Negative) 12/15/18 12/15/18 Range/Units 05:34 06:39 WBC (4.8-10.8) K/uL RBC (4.7-6.1) M/uL Hgb (14.0-18.0) g/dL Hct (42-52) % MCV (80-100) fL MCH (25-34) pg MCHC (32-36) g/dL RDW Std Deviation (36.4-46.3) fL RDW Coeff of Tyson (11.5-14.5) % Plt Count (130-400) K/uL MPV (7.4-10.4) fL Immature Gran % (Auto) % Neut % (Auto) % Lymph % (Auto) % [place] % (Auto) % Eos % (Auto) % Baso % (Auto) % Immature Gran # (Auto) (0.00-0.02) K/uL Neut # (Auto) (1.4-6.5) K/uL Lymph # (Auto) (1.2-3.4) K/uL [place] # (Auto) (0.11-0.59) K/uL Eos # (Auto) (0-0.5) K/uL Baso # (Auto) (0-0.2) K/uL Toxic Granulation RBC Morphology ESR (0-14) mm/hr PT (9.0-12.0) Seconds INR (0.9-1.1) APTT (21.0-31.0) Seconds PTT Ratio D-Dimer (0-500) ug/L FEU Sample Site POC pH (7.35-7.45) POC pCO2 (35-46) mmHg POC pO2 (80-95) mmHg POC HCO3 (19-24) jelly/L POC Total CO2 (24-31) mEq/l POC Base Excess (-9-1.8) jelly/L POC ABG O2 Sat (90-95) % Tahir Test O2 Delivery Device POC O2 Rate POC FiO2 % IPAP Sodium (136-145) mmol/L Potassium (3.5-5.1) mmol/L Chloride (98-107) mmol/L Carbon Dioxide (21-32) mmol/L Anion Gap (3-11) BUN (7-18) mg/dl Creatinine (0.6-1.4) mg/dl Est Cr Clr Drug Dosing Est GFR ( Amer) Est GFR (Non-Af Amer) BUN/Creatinine Ratio (10-20) Glucose (70-99) mg/dl POC Glucose 138 H (70-99) POC Lactic Acid Ivan (0.90-1.70) mmol/L Lactate (0.4-2.0) mmol/L Calcium (8.5-10.1) mg/dl Ionized Calcium (1.12-1.32) mmol/L Phosphorus (2.5-4.9) mg/dl Magnesium (1.8-2.4) mg/dl Total Bilirubin (0.2-1) mg/dl AST (15-37) U/L ALT (12-78) U/L Alkaline Phosphatase (45-117) U/L Troponin I (0-0.045) ng/ml C-Reactive Protein (0-0.29) mg/dl NT-Pro-B Natriuret Pep (0-900) pg/ml Total Protein (6.4-8.2) gm/dl Albumin (3.4-5.0) gm/dl Globulin (2.5-4.0) gm/dl Albumin/Globulin Ratio (0.9-2) Procalcitonin (0-0.5) ng/ml Random Cortisol mcg/dl Urine Color Urine Appearance (Clear) Urine pH (4.5-7.5) Ur Specific [place] (1.000-1.030) Urine Protein (Negative) Urine Glucose (UA) (Negative) Urine Ketones (Negative) Urine Blood (Negative) Urine Nitrite (Negative) Urine Bilirubin (Negative) Urine Urobilinogen (Negative) Ur Leukocyte Esterase (Negative) Urine WBC (Auto) (0-5) /hpf Urine RBC (Auto) (0-4) /hpf U Hyaline Cast (Auto) (0-5) /lpf U Epithel Cells (Auto) (0-5) /lpf Urine Bacteria (Auto) (Negative) Ur Renal Epithelial Cell Granular Casts (0) /lpf Urine Yeast Nasal Screen MRSA (PCR) (Negative) Vancomycin Trough 13.9 (See Comment) mcg/ml Valproic Acid (50-100) mcg/ml Hepatitis A IgM Ab (NON-REACTIVE) Hep Bs Antigen (Neg) Hep B Core IgM Ab (NON-REACTIVE) Hepatitis C Antibody (Neg) Influenza Type A (PCR) (Neg) Influenza Type B (PCR) (Neg) Bld Cult Staph aureus PCR (Negative) Blood Culture MRSA PCR (Negative) Imaging Data Radiologist's Impression: Radiology results as stated below per my review and the radiologist's interpretation: SINGLE VIEW CHEST CLINICAL HISTORY: Dyspnea. FINDINGS: An AP, portable, upright chest radiograph is obtained. No prior studies are available for comparison at the time of dictation. The examination is significantly degraded by portable technique and patient rotation. The heart is mildly enlarged. The pulmonary vasculature is noncongested. Patchy airspace consolidation is seen in the left mid to lower lung. No large pleural effusion or pneumothorax is seen. The skeletal structures are osteopenic. The bony thorax is grossly intact. IMPRESSION: 1. Mild cardiac enlargement without radiographic evidence of congestive failure. 2. Patchy airspace consolidation is seen at the left lung base. Correlate clinically for evidence of pneumonia/aspiration pneumonitis. Radiographic foll ow-up to resolution is recommended. Electronically signed by: Tk Vidal M.D. 12/12/2018 12:54 PM ECG Data Attestation: I personally reviewed and interpreted this ECG as follows: Indication: SOB/dyspnea Rate (beats per minute): 88 Rhythm: normal sinus Findings: + other (nonspecific intraventricular conduction delay); no PAC, no PVC, no ST depression, no ST elevation, no acute ischemic change and no ectopy Blood Pressure Blood Pressure Findings: Normal blood pressure Blood Pressure Disposition: did not require urgent referral MDM Narrative This pt was evaluated and appeared to be in significant respiratory distress. He is chronically disabled and on n/c O2. Upon my evaluation, the pt was repositioned, airway opened and copious secretions were suctioned from the airway. NRB was placed. Pt's O2 saturations improved tremendously. Lab work reveals a normal WBC, CXR is concerning of aspiration. Blood cultures and lactate were ordered. IV zosyn was ordered. Pt was placed on bipap by resp therapy. Case was d/w the hospitalist service for further management. Impression & Plan Acute respiratory failure, Aspiration into airway Critical Care Time I have personally spent greater than 35 minutes of critical care time in the direct management of this patient. This includes bedside care, interpretation of diagnostic studies, and testing, discussion with consultants, patient, and family members, and other required patient management activities. This 35 minutes is in excess of all separately billable procedures. Critical Care Time: Yes Total Critical Care Time: 35 Discharge Plan Visit Data *Final* Discharge Date/Time: 12/12/18 14:46 Chief Complaint: Respiratory Distress Stated Complaint: respiratory distress/ams ED Provider: Vivien Riley Discharge Problem: Acute respiratory failure, Aspiration into airway Patient Disposition: Admitted As Inpatient Discharge Instructions Interventions: ED Discharge Assessment Last Done: 12/12/18 14:46 Discharge Problem: Acute respiratory failure Qualifiers: Respiratory failure complication: unspecified whether with hypoxia or hypercapnia Qualified Code(s): J96.00 - Acute respiratory failure, unspecified whether with hypoxia or hypercapnia Aspiration into airway Qualifiers: Encounter type: initial encounter Qualified Code(s): T17.908A - Unspecified foreign body in respiratory tract, part unspecified causing other injury, initial encounter The scribe's documentation has been prepared under my direction and personally reviewed by me in its entirety. I confirm that the note above accurately reflects all work, treatment, procedures, and medical decision making performed by me.
[2018-12-12 17:29] LABS: Hepatitis B Surface Antigen Neg (Neg)
[2018-12-12] MEDS ORDERED: VANCOMYCIN HCL 2,000 MG in SODIUM CHLORIDE 0.9% 500 ML IV ONE (17:30)
[2018-12-12] MEDS: NORMOSOL-R 1,000 ML IV SCH (17:42)
--- NOTE | 2018-12-12 17:48 | History & Physical Report ---
Date of Service December 12, 2018 Assessment & Plan (1) Acute hypoxemic respiratory failure: Mr. Nugent is a 68 year old male with a history of Anxiety, Bipolar Disorder, OCD, Depression, GERD, and Tube Feedings -- presented to [facility] ER earlier today with acute respiratory distress. Patient was noted to aspirate a large volume to his airway. He was hypoxic when he arrived at the emergency room. Subsequently underwent suction of approximately 700 cc of his stomach contents from his airways. His initial O2 saturation was 88% on 6 L of oxygen, and then 12 L oxygen. Following suction his oxygen levels improved to 92% on BiPAP -- and are currently up to 95%. This is likely secondary to Aspiration. -- Admit to ICU on BiPAP. -- Check ABG's. -- IVF bolus is being given currently. -- Check blood cultures. -- Empirically begin IV Zosyn. -- Serial cardiac enzymes. -- BMP. Present on Admission?: Yes (2) Aspiration into airway: -- As outlined above. Present on Admission?: Yes (3) Altered mental status, unspecified: -- Likely secondary to aspiration and acute hypoxic respiratory failure. -- Treatment as outlined above. Present on Admission?: Yes History of Present Illness Primary Care Provider: [place] Mr. Nugent is a 68 year old male with a history of Anxiety, Bipolar Disorder, OCD, Depression, GERD, and Tube Feedings -- presented to [facility] ER ea rlier today with acute respiratory distress. Patient was noted to aspirate a large volume to his airway. He was hypoxic when he arrived at the emergency room. Subsequently underwent suction of approximately 700 cc of his stomach contents from his airways. His initial O2 saturation was 88% on 6 L of oxygen, and then 12 L oxygen. Following suction his oxygen levels improved to 92% on BiPAP -- and are currently up to 95%. Patient was subsequently confused, not talking in a coherent manner, he is hypotensive, and has mottled extremities. I am uncertain why he is receiving tube feedings. Apparently is also anticoagulated but we do not know the details. Allergies Allergy/AdvReac Type Severity Reaction Status Date / Time haloperidol [From Haldol] Allergy Unknown Unknown Unverified 12/12/18 15:14 methylphenidate Allergy Unknown Unknown Unverified 12/12/18 15:14 Home Medications Home Medications Medication Instructions Recorded Confirmed Type Ppd 0.1 ml SC UD 12/12/18 12/12/18 History acetaminophen 500 mg PO Q6H PRN 12/12/18 12/12/18 History clonazepam 1 mg FEEDING TUBE QAM 12/12/18 12/12/18 History clonazepam 2 mg FEEDING TUBE HS 12/12/18 12/12/18 History famotidine 20 mg FEEDING TUBE TID 12/12/18 12/12/18 History finasteride 5 mg FEEDING TUBE HS 12/12/18 12/12/18 History fluticasone [Flonase Allergy 1 spray INTRANASAL BID 12/12/18 12/12/18 History Relief] guaifenesin 100 mg FEEDING TUBE TID 12/12/18 12/12/18 History heparin (porcine) 5,000 unit SUBCUT Q12H 12/12/18 12/12/18 History ipratropium-albuterol 3 ml INHALATION Q8H 12/12/18 12/12/18 History loratadine 10 mg FEEDING TUBE QAM 12/12/18 12/12/18 History lorazepam 1 mg FEEDING TUBE TID 12/12/18 12/12/18 History metoclopramide HCl [Reglan] 5 mg FEEDING TUBE Q6H 12/12/18 12/12/18 History risperidone 0.5 mg FEEDING TUBE Q6H PRN 12/12/18 12/12/18 History sertraline 100 mg FEEDING TUBE QAM 12/12/18 12/12/18 History tamsulosin 0.8 mg PO HS 12/12/18 12/12/18 History valproic acid (as sodium salt) 750 mg PO BID 12/12/18 12/12/18 History [Depakene] Past Med/Surg History Medical History Anxiety Bipolar disorder Depressive disorder GERD (gastroesophageal reflux disease) OCD (obsessive compulsive disorder) Family History Other Family history non-contributory Social History Communication Ability: sick Communication Ability Comment: pt has impaired communication due to illness Processing Assistant Required: No Beliefs That Will Affect Care: None marital status: Single Current Living Situation: Correction current occupational status: retired Feels Safe at Home: Yes Smoking Status: Unknown if ever smoked Physical Exam Vital Signs (Past 24 Hours): Last Vital Signs Temp 37.2 C 12/12/18 16:42 Pulse 97 H 12/12/18 17:27 Resp 20 12/12/18 17:27 BP 113/66 12/12/18 16:42 Pulse Ox 95 12/12/18 17:27 Physical Exam: General: Patient appears acutely ill. He is sitting partially upright his litter with BiPAP inplace HEENT: Head is atraumatic, normocephalic. EOMs intact. Sclerae anicteric. Facies symmetric. No perioral cyanosis currently Neck: No JVD. JVP is at the level of the clavicle sitting upright. Chest and Lungs: Diminished breath sounds, occasional crackles noted in bases. Breath sounds appear to be bilaterally equal. CVS: S1 and S2 are regular, distant without obvious murmurs, gallops, or rubs. PMI is nondisplaced. No lifts, heaves, or thrills. No abdominal aortic or renal bruits. Abdominal Exam: Bowel sounds present. PEG tube in place. Extremities: Hands and feet appear mottle, cool to touch. No clubbing or edema. Intact radial pulses bilaterally. Neurologic Exam: Patient is awake with eyes open, does not follow commands. Patient is currently not giving any verbal responses. EKG 12/12/2018: -- NSR at 88 bpm, non-specific IVCD. CXR 12/12/18: 1. Mild cardiac enlargement without radiographic evidence of congestive failure. 2. Patchy airspace opacities at present at both lung bases, left greater than right. This is similar to today's earlier examination. Correlate clinically for evidence of pneumonia/aspiration pneumonitis. Results & Data Laboratory Results Laboratory Results - last 24 hr 12/12/18 12/12/18 12/12/18 11:24 11:24 11:24 WBC 10.62 RBC 3.43 L Hgb 11.0 L Hct 33.0 L MCV 96.2 MCH 32.1 MCHC 33.3 RDW Std Deviation 57.4 H RDW Coeff of Tyson 16.3 H Plt Count 216 MPV 9.6 Immature Gran % (Auto) 1.2 Neut % (Auto) 71.9 Lymph % (Auto) 5.3 [place] % (Auto) 21.1 Eos % (Auto) 0.4 Baso % (Auto) 0.1 Immature Gran # (Auto) 0.13 H Neut # (Auto) 7.64 H Lymph # (Auto) 0.56 L [place] # (Auto) 2.24 H Eos # (Auto) 0.04 Baso # (Auto) 0.01 ESR PT 11.1 INR 1.1 APTT 30.8 PTT Ratio 1.1 D-Dimer Sample Site POC pH POC pCO2 POC pO2 POC HCO3 POC Total CO2 POC Base Excess POC ABG O2 Sat Tahir Test O2 Delivery Device POC O2 Rate POC FiO2 IPAP Sodium Potassium Chloride Carbon Dioxide Anion Gap BUN Creatinine Est Cr Clr Drug Dosing Est GFR ( Amer) Est GFR (Non-Af Amer) BUN/Creatinine Ratio Glucose POC Glucose POC Lactic Acid Ivan Lactate Calcium Ionized Calcium Phosphorus Magnesium 2.5 H Total Bilirubin AST ALT Alkaline Phosphatase Troponin I < 0.015 C-Reactive Protein NT-Pro-B Natriuret Pep Total Protein Albumin Globulin Albumin/Globulin Ratio Procalcitonin Random Cortisol Urine Color Urine Appearance Urine pH Ur Specific [place] Urine Protein Urine Glucose (UA) Urine Ketones Urine Blood Urine Nitrite Urine Bilirubin Urine Urobilinogen Ur Leukocyte Esterase Urine WBC (Auto) Urine RBC (Auto) U Hyaline Cast (Auto) U Epithel Cells (Auto) Urine Bacteria (Auto) Ur Renal Epithelial Cell Granular Casts Urine Yeast Valproic Acid Hep Bs Antigen Influenza Type A (PCR) Influenza Type B (PCR) 12/12/18 12/12/18 12/12/18 11:24 11:24 11:24 WBC RBC Hgb Hct MCV MCH MCHC RDW Std Deviation RDW Coeff of Tyson Plt Count MPV Immature Gran % (Auto) Neut % (Auto) Lymph % (Auto) [place] % (Auto) Eos % (Auto) Baso % (Auto) Immature Gran # (Auto) Neut # (Auto) Lymph # (Auto) [place] # (Auto) Eos # (Auto) Baso # (Auto) ESR PT INR APTT PTT Ratio D-Dimer Sample Site POC pH POC pCO2 POC pO2 POC HCO3 POC Total CO2 POC Base Excess POC ABG O2 Sat Tahir Test O2 Delivery Device POC O2 Rate POC FiO2 IPAP Sodium 133 L Potassium 4.4 Chloride 96 L Carbon Dioxide 33 H Anion Gap 4.0 BUN 43 H Creatinine 1.03 Est Cr Clr Drug Dosing Not Reportable Est GFR ( Amer) 86.7 Est GFR (Non-Af Amer) 74.8 BUN/Creatinine Ratio 41.5 H Glucose 149 H POC Glucose POC Lactic Acid Ivan Lactate Calcium 8.3 L Ionized Calcium Phosphorus Magnesium Total Bilirubin 0.3 AST 63 H ALT 36 Alkaline Phosphatase 64 Troponin I C-Reactive Protein NT-Pro-B Natriuret Pep Total Protein 7.1 Albumin 2.0 L Globulin 5.1 H Albumin/Globulin Ratio 0.4 L Procalcitonin Random Cortisol 25.81 Urine Color Urine Appearance Urine pH Ur Specific [place] Urine Protein Urine Glucose (UA) Urine Ketones Urine Blood Urine Nitrite Urine Bilirubin Urine Urobilinogen Ur Leukocyte Esterase Urine WBC (Auto) Urine RBC (Auto) U Hyaline Cast (Auto) U Epithel Cells (Auto) Urine Bacteria (Auto) Ur Renal Epithelial Cell Granular Casts Urine Yeast Valproic Acid Hep Bs Antigen Neg Influenza Type A (PCR) Influenza Type B (PCR) 12/12/18 12/12/18 12/12/18 11:30 12:04 12:05 WBC RBC Hgb Hct MCV MCH MCHC RDW Std Deviation RDW Coeff of Tyson Plt Count MPV Immature Gran % (Auto) Neut % (Auto) Lymph % (Auto) [place] % (Auto) Eos % (Auto) Baso % (Auto) Immature Gran # (Auto) Neut # (Auto) Lymph # (Auto) [place] # (Auto) Eos # (Auto) Baso # (Auto) ESR PT INR APTT PTT Ratio D-Dimer Sample Site POC pH POC pCO2 POC pO2 POC HCO3 POC Total CO2 POC Base Excess POC ABG O2 Sat Tahir Test O2 Delivery Device POC O2 Rate POC FiO2 IPAP Sodium Potassium Chloride Carbon Dioxide Anion Gap BUN Creatinine Est Cr Clr Drug Dosing Est GFR ( Amer) Est GFR (Non-Af Amer) BUN/Creatinine Ratio Glucose POC Glucose POC Lactic Acid Ivan 1.48 Lactate Calcium Ionized Calcium Phosphorus Magnesium Total Bilirubin AST ALT Alkaline Phosphatase Troponin I C-Reactive Protein NT-Pro-B Natriuret Pep Total Protein Albumin Globulin Albumin/Globulin Ratio Procalcitonin Random Cortisol Urine Color Dark Yellow Urine Appearance Cloudy H Urine pH 5.0 Ur Specific [place] 1.024 Urine Protein Negative Urine Glucose (UA) Negative Urine Ketones Negative Urine Blood Negative Urine Nitrite Negative Urine Bilirubin Negative Urine Urobilinogen Negative Ur Leukocyte Esterase 2+ H Urine WBC (Auto) 10-30 H Urine RBC (Auto) 0-4 U Hyaline Cast (Auto) 10-30 H U Epithel Cells (Auto) >30 H Urine Bacteria (Auto) 1+ H Ur Renal Epithelial Cell Not Reportable Granular Casts 5-10 H Urine Yeast Not Reportable Valproic Acid Hep Bs Antigen Influenza Type A (PCR) Neg for Influ A Influenza Type B (PCR) Neg for Influ B 12/12/18 12/12/18 12/12/18 16:05 16:39 16:39 WBC RBC Hgb Hct MCV MCH MCHC RDW Std Deviation RDW Coeff of Tyson Plt Count MPV Immature Gran % (Auto) Neut % (Auto) Lymph % (Auto) [place] % (Auto) Eos % (Auto) Baso % (Auto) Immature Gran # (Auto) Neut # (Auto) Lymph # (Auto) [place] # (Auto) Eos # (Auto) Baso # (Auto) ESR PT INR APTT PTT Ratio D-Dimer 4400 H* Sample Site POC pH POC pCO2 POC pO2 POC HCO3 POC Total CO2 POC Base Excess POC ABG O2 Sat Tahir Test O2 Delivery Device POC O2 Rate POC FiO2 IPAP Sodium Potassium Chloride Carbon Dioxide Anion Gap BUN Creatinine Est Cr Clr Drug Dosing Est GFR ( Amer) Est GFR (Non-Af Amer) BUN/Creatinine Ratio Glucose POC Glucose 156 H POC Lactic Acid Ivan Lactate 3.1 H* Calcium Ionized Calcium Phosphorus Magnesium Total Bilirubin AST ALT Alkaline Phosphatase Troponin I C-Reactive Protein NT-Pro-B Natriuret Pep Total Protein Albumin Globulin Albumin/Globulin Ratio Procalcitonin Random Cortisol Urine Color Urine Appearance Urine pH Ur Specific [place] Urine Protein Urine Glucose (UA) Urine Ketones Urine Blood Urine Nitrite Urine Bilirubin Urine Urobilinogen Ur Leukocyte Esterase Urine WBC (Auto) Urine RBC (Auto) U Hyaline Cast (Auto) U Epithel Cells (Auto) Urine Bacteria (Auto) Ur Renal Epithelial Cell Granular Casts Urine Yeast Valproic Acid Hep Bs Antigen Influenza Type A (PCR) Influenza Type B (PCR) 12/12/18 12/12/18 12/12/18 16:39 16:39 16:39 WBC RBC Hgb Hct MCV MCH MCHC RDW Std Deviation RDW Coeff of Tyson Plt Count MPV Immature Gran % (Auto) Neut % (Auto) Lymph % (Auto) [place] % (Auto) Eos % (Auto) Baso % (Auto) Immature Gran # (Auto) Neut # (Auto) Lymph # (Auto) [place] # (Auto) Eos # (Auto) Baso # (Auto) ESR 72 H PT INR APTT PTT Ratio D-Dimer Sample Site POC pH POC pCO2 POC pO2 POC HCO3 POC Total CO2 POC Base Excess POC ABG O2 Sat Tahir Test O2 Delivery Device POC O2 Rate POC FiO2 IPAP Sodium 138 Potassium 4.4 Chloride 100 Carbon Dioxide 33 H Anion Gap 6.0 BUN 40 H Creatinine 1.01 Est Cr Clr Drug Dosing 68.7 Est GFR ( Amer) 88.8 Est GFR (Non-Af Amer) 76.6 BUN/Creatinine Ratio 39.2 H Glucose 129 H POC Glucose POC Lactic Acid Ivan Lactate Calcium 8.5 Ionized Calcium Phosphorus 5.5 H Magnesium 2.3 Total Bilirubin 0.3 AST 56 H ALT 36 Alkaline Phosphatase 60 Troponin I < 0.015 C-Reactive Protein 27.10 H NT-Pro-B Natriuret Pep 852 Total Protein 6.6 Albumin 1.9 L Globulin 4.7 H Albumin/Globulin Ratio 0.4 L Procalcitonin 1.74 H Random Cortisol Urine Color Urine Appearance Urine pH Ur Specific [place] Urine Protein Urine Glucose (UA) Urine Ketones Urine Blood Urine Nitrite Urine Bilirubin Urine Urobilinogen Ur Leukocyte Esterase Urine WBC (Auto) Urine RBC (Auto) U Hyaline Cast (Auto) U Epithel Cells (Auto) Urine Bacteria (Auto) Ur Renal Epithelial Cell Granular Casts Urine Yeast Valproic Acid Hep Bs Antigen Influenza Type A (PCR) Influenza Type B (PCR) 12/12/18 12/12/18 12/12/18 16:39 16:39 16:54 WBC RBC Hgb Hct MCV MCH MCHC RDW Std Deviation RDW Coeff of Tyson Plt Count MPV Immature Gran % (Auto) Neut % (Auto) Lymph % (Auto) [place] % (Auto) Eos % (Auto) Baso % (Auto) Immature Gran # (Auto) Neut # (Auto) Lymph # (Auto) [place] # (Auto) Eos # (Auto) Baso # (Auto) ESR PT INR APTT PTT Ratio D-Dimer Sample Site R Radial POC pH 7.39 POC pCO2 48 H POC pO2 131 H POC HCO3 29 H POC Total CO2 31 POC Base Excess 4.0 H POC ABG O2 Sat 99.0 H Tahir Test Pass O2 Delivery Device BIPAP POC O2 Rate 16 POC FiO2 60 IPAP 13 Sodium Potassium Chloride Carbon Dioxide Anion Gap BUN Creatinine Est Cr Clr Drug Dosing Est GFR ( Amer) Est GFR (Non-Af Amer) BUN/Creatinine Ratio Glucose POC Glucose POC Lactic Acid Ivan Lactate Calcium Ionized Calcium 1.09 L Phosphorus Magnesium Total Bilirubin AST ALT Alkaline Phosphatase Troponin I C-Reactive Protein NT-Pro-B Natriuret Pep Total Protein Albumin Globulin Albumin/Globulin Ratio Procalcitonin Random Cortisol Urine Color Urine Appearance Urine pH Ur Specific [place] Urine Protein Urine Glucose (UA) Urine Ketones Urine Blood Urine Nitrite Urine Bilirubin Urine Urobilinogen Ur Leukocyte Esterase Urine WBC (Auto) Urine RBC (Auto) U Hyaline Cast (Auto) U Epithel Cells (Auto) Urine Bacteria (Auto) Ur Renal Epithelial Cell Granular Casts Urine Yeast Valproic Acid 51 Hep Bs Antigen Influenza Type A (PCR) Influenza Type B (PCR) Medications Administered Active Medications Generic Name Dose Route Start Last Admin Trade Name Freq PRN Reason Stop Dose Admin Acetaminophen 650 mg 12/12/18 14:06 Tylenol PO 01/11/19 14:05 Q4H PRN Pain or Fever Al Hydrox/Mg Hydrox/Simethicone 15 ml 12/12/18 14:06 Maalox PO 01/11/19 14:05 Q4H PRN Dyspepsia Enoxaparin Sodium 40 mg 12/12/18 17:00 Lovenox SQ 01/11/19 16:59 Q24H LAUREANO Piperacillin Sod/Tazobactam 120 mls @ 30 mls/hr 12/12/18 18:00 Sod 4.5 gm/ Dextrose IV 12/19/18 17:59 Q8H LAUREANO Protocol Vancomycin HCl 2,000 mg/ 540 mls @ 200 mls/hr 12/12/18 17:30 12/12/18 17:42 Sodium Chloride IV 12/12/18 20:11 200 mls/hr NOW ONE Administration Parenteral Electrolytes 1,000 mls @ 80 mls/hr 12/12/18 17:30 12/12/18 17:42 Normosol-R IV 01/11/19 17:29 80 mls/hr .[id number] LAUREANO Administration Magnesium Hydroxide 30 ml 12/12/18 14:06 Milk Of Magnesia PO 01/11/19 14:05 Q12H PRN Constipation Miscellaneous Information 1 ea 12/12/18 16:26 Consult N/A 01/11/19 16:25 UD PRN Consult Miscellaneous Information 1 ea 12/12/18 16:42 Consult N/A 01/11/19 16:41 UD PRN Consult Nitroglycerin 0.4 mg 12/12/18 14:06 Nitrostat SL 01/11/19 14:05 UD PRN Chest Pain Ondansetron HCl 4 mg 12/12/18 14:06 Zofran IV 01/11/19 14:05 Q6H PRN Nausea Polyethylene Glycol 17 gm 12/12/18 14:06 Miralax Powder Packet PO 01/11/19 14:05 DAILY PRN Constipation Zolpidem Tartrate 5 mg 12/12/18 14:06 Ambien PO 01/11/19 14:05 HS PRN Sleep Supervising Physician Co-Signing Physician Notes Naldo Manriquez (1) Aspiration into airway Encounter type: initial encounter Qualified Code(s): T17.908A - Unspecified foreign body in respiratory tract, part unspecified causing other injury, initial encounter (2) Altered mental status, unspecified Altered mental status type: coma Coma depth: Sofi coma 9-12 Coma timing: unspecified coma timing Qualified Code(s): R40.2420 - Sofi coma scale score 9-12, unspecified time
[2018-12-12 17:57] LABS: Hepatitis C IgG 13Yrs+Old_Rflx Neg (Neg)
[2018-12-12] MEDS: ENOXAPARIN INJ 40 MG/0.4 ML SYR SQ SCH (18:02)
[2018-12-12] MEDS: PIPERACILLIN/TAZOBACTAM 4.5 GM in DEXTROSE 5% 100 ML IV SCH (18:02)
[2018-12-12] MEDS ORDERED: guaiFENesin SUGAR FREE 100 MG/5 ML UDC PO PRN (18:21)
[2018-12-12] MEDS ORDERED: risperiDONE 0.5 MG TABLET PEG PRN (18:26)
[2018-12-12] MEDS ORDERED: [UNRECOGNIZED DRUG - REMARK] PRN (18:30)
[2018-12-12] MEDS ORDERED: OPTIRAY 320 125ml IV PRN (18:45)
--- NOTE | 2018-12-12 19:03 | CT Scan Report ---
CT ANGIOGRAM OF THE CHEST CLINICAL HISTORY: Respiratory distress. Dyspnea. COMPARISON STUDY: Chest x-ray dated 12/12/2018. TECHNIQUE: Following the IV administration of 105 cc of Optiray 320, CT angiogram of the chest was pe rformed from the upper abdomen to the thoracic inlet utilizing the pulmonary embolus protocol. Images are reviewed in the axial, sagittal, and coronal planes. 3-D MIPS images are created and assessed. I V contrast was administered without complication. A dose lowering technique was utilized adhering to the principles of ALARA. The examination is degraded by streak artifact from the arms which cannot e levated above the chest as well as well as motion artifact. CT DOSE: 531.01 mGy.cm FINDINGS: Thyroid: Imaged portions of the thyroid gland are normal in size and attenuation. Thoracic aorta: There is atherosclerotic calcification of the thoracic aorta, which is normal in muna rachael and demonstrates standard 3-vessel arch anatomy. No dissection is seen. Pulmonary vasculature: The pulmonary trunk is normal in caliber. There are no filling defects identif ied in main, lobar, or proximal segmental pulmonary branches to suggest pulmonary embolus. Evaluation of the peripheral branches is significantly degraded by streak and motion artifact. Heart: The heart is enlarged and there is trace pericardial fluid. Lungs and pleural spaces: Evaluation of the lung parenchyma is degraded by motion artifact. There is dense airspace consolidation at both lung bases, right greater than left. Patchy consolidative change s also seen within the lingula and throughout the upper lobes. No pleural effusion is identified. Sca ttered calcified granulomas are observed. Hyperdense debris is present within the right lower lobe co nsolidation. The trachea and central airways are clear. Mediastinum: There are numerous subcentimeter mediastinal lymph nodes. These are not pathologically e nlarged by size criteria. Lisa: No hilar adenopathy is seen. There are calcified left hilar nodes. Axillae: There is no axillary lymphadenopathy. Upper abdomen: There is a small hiatal hernia. The spleen is enlarged and there are calcified splenic granulomas. Nodular thickening is noted in the adrenal glands. Skeletal structures: The skeletal structures are osteopenic. No lytic or blastic bony lesions are see n. IMPRESSION: 1. Streak and motion degraded examination. 2. There is no evidence of central pulmonary embolus in the main, lobar, or proximal segmental pulmon pattie arteries. 3. Cardiomegaly. 4. There is dense bibasilar airspace consolidation, right greater than left with more patchy airspace consolidation seen throughout the upper lobes. The appearance is most typical for multifocal pneumon ia/aspiration pneumonitis. Clinical correlation will be required. 5. Hyperdense material/debris within the right lower lobe consolidation may be related to chronic asp iration. 6. Splenomegaly. 7. Additional findings as above. Electronically signed by: Tk Vidal M.D. 12/12/2018 7:02 PM
[2018-12-12] MEDS ORDERED: MAGNESIUM HYDROXIDE SUSP 30 ML UDC PEG PRN (19:30)
[2018-12-12] MEDS ORDERED: POLYETHYLENE (MIRALAX) 17 GM PACK PEG PRN (19:30)
[2018-12-12] MEDS ORDERED: ACETAMINOPHEN 325 MG TAB PEG PRN (19:30)
[2018-12-12] MEDS: ALBUT/IPRATROP 3MG/0.5MG NEB 3 ML VIAL NEB SCH ×2 (19:41→23:02)
[2018-12-12] MEDS: TAMSULOSIN HCL 0.4 MG CAP PEG SCH (20:40)
[2018-12-12] MEDS: DIVALPROEX SODIUM SPRINKLE 125 MG CAP PO SCH (20:41)
[2018-12-12] MEDS: guaiFENesin 200 MG TAB PO SCH (20:42)
[2018-12-12] MEDS: LORazepam 1 MG TAB PO SCH (20:45)
[2018-12-12] MEDS: METOCLOPRAMIDE HCL 10 MG TABLET PO SCH (23:31)
[2018-12-13] MEDS: PIPERACILLIN/TAZOBACTAM 4.5 GM in DEXTROSE 5% 100 ML IV SCH ×3 (01:59→17:08)
[2018-12-13] MEDS: METOCLOPRAMIDE HCL 10 MG TABLET PO SCH ×4 (05:45→23:32)
[2018-12-13] MEDS: NORMOSOL-R 1,000 ML IV SCH (05:45)
[2018-12-13 05:52] LABS: BUN Creatinine Ratio 42.7 (10-20); Calcium 8.4 mg/dl (8.5-10.1); Creatinine Clr Calc Pharmacy 82.6 ml/min; Est GFR (Non-African American) 90.6; Potassium 4.4 mmol/L (3.5-5.1)
--- NOTE | 2018-12-13 07:04 | Ultrasound Report ---
US venous doppler LE BI CLINICAL HISTORY: Possible pulmonary embolism. COMPARISON STUDY: No previous studies for comparison. FINDINGS: Real-time and color flow Doppler imaging were performed. Flow was seen within the femoral, popliteal and calf veins with no intraluminal thrombus demonstrated. The saphenous vein is patent. IMPRESSION: No evidence of lower extremity DVT. Electronically signed by: Reinaldo Bautista M.D. 12/13/2018 7:02 AM
[2018-12-13] MEDS: ALBUT/IPRATROP 3MG/0.5MG NEB 3 ML VIAL NEB SCH ×3 (07:12→23:10)
[2018-12-13] MEDS ORDERED: VANCOMYCIN HCL 1,250 MG in SODIUM CHLORIDE 0.9% 250 ML IV SCH ×2 (08:00→20:00)
[2018-12-13] MEDS: LORazepam 1 MG TAB PO SCH ×3 (08:03→20:36)
[2018-12-13] MEDS: LORATADINE 10 MG TAB PEG SCH (08:07)
[2018-12-13] MEDS: DIVALPROEX SODIUM SPRINKLE 125 MG CAP PO SCH ×2 (08:07→20:34)
[2018-12-13] MEDS: FINASTERIDE 5 MG TAB PO SCH (08:08)
[2018-12-13] MEDS: guaiFENesin 200 MG TAB PO SCH ×3 (08:08→20:34)
[2018-12-13] MEDS: SERTRALINE HCL 100 MG TABLET PO SCH (08:09)
[2018-12-13 08:18] LABS: Albumin Level 1.7 gm/dl (3.4-5.0); BUN Creatinine Ratio 42.9 (10-20); Creatinine Clr Calc Pharmacy 88.9 ml/min; Est GFR (African American) 108.3; Est GFR (Non-African American) 93.4; Magnesium 2.4 mg/dl (1.8-2.4); Potassium 4.4 mmol/L (3.5-5.1)
[2018-12-13 08:22] LABS: Albumin Globulin Ratio 0.4 (0.9-2); Bilirubin,Total 0.3 mg/dl (0.2-1); Globulin 4.4 gm/dl (2.5-4.0); Phosphorus 4.3 mg/dl (2.5-4.9); Total Protein 6.1 gm/dl (6.4-8.2)
--- NOTE | 2018-12-13 08:29 | Critical Care Progress Note ---
Date of Service December 13, 2018 Assessment & Plan (1) Altered mental status, unspecified: Reason Critically Ill: 68-year-old male acute hypoxic respiratory failure PLAN: Neuro: Altered mental status: GCS 11 -Unclear if this is acute or chronic Likely mood disorder -Anxiety, OCD, bipolar listed in hospitalist notes -Depakote within normal limits Resp: Acute hypoxic respiratory failure with hypercarbia: Improved -Question pneumonia versus mucoid impaction versus aspiration into airway -BiPAP 16/8 60% FiO2 -Will de-escalate vancomycin as there does not appear to be necrotic formation at this time -[facility] resident at risk for multidrug-resistant organisms, healthcare associated pneumonia we will continue with Zosyn at this time -At this time I feel his staph aureus is likely colonization not indicative of active infection. Staph aureus pulmonary infections are very virulent and typically are very aggressive, his clinical picture is most consistent with aspiration pneumonitis CV: Abnormal EKG: Interventricular conduction delay, nonspecific -Troponins negative x1 Fluids/Renal: Hyponatremia: Resolved Hypochloremia: Resolved -Discontinuing IV fluids for tube feeds ID: Possible source of infection: -Pneumonia: Nasotracheal suction sputum obtained -UTI: Micro pending -intra-abdominal: Trend LFTs tomorrow -Hepatitis panel negative GI/Nutrition: Elevated AST: Improved PEG tube present -Unclear etiology, will restart tube feeds at this time Heme: Anemia -Unclear if this is acute or chronic DVT prophylaxis: Heparin twice daily Elevated d-dimer: No DVT no PE on advanced imaging -[facility] resident: Unknown level of activity Endocrine: ICU hyperglycemia protocol Elevated blood sugar Vascular access: Peripheral IVs Code Status: Full code Critical care issues have largely resolved. Goal will be to prevent future aspiration events, maintain head of bed elevation. Stable for downgrade out of ICU. (2) Acute hypoxemic respiratory failure: (3) Anemia: (4) Hyponatremia: (5) Hypochloremia: (6) Elevated AST (SGOT): (7) Elevated BUN: (8) Abnormal EKG: (9) Intraventricular conduction delay: (10) Elevated d-dimer: Subjective No overnight events I was able to review long term information today. Patient has a history of underlying dementia and presented to his nursing facility from [facility] in September. It appears he has had recurrent aspiration pneumonias with staph aureus that was twice treated with clindamycin. PEG was placed for additional nutritional support secondary to swallowing difficulties and dysphasia Physical Exam Vital Signs (Past 24 Hours): Last Vital Signs Temp 36.7 C 12/13/18 04:00 Pulse 89 12/13/18 07:15 Resp 24 12/13/18 07:15 BP 91/47 L 12/13/18 06:00 Pulse Ox 97 12/13/18 07:15 Results & Data Laboratory Results 12/13/18 12/13/18 12/12/18 Range/Units 07:46 05:06 16:54 WBC (4.8-10.8) K/uL RBC (4.7-6.1) M/uL Hgb (14.0-18.0) g/dL Hct (42-52) % MCV (80-100) fL MCH (25-34) pg MCHC (32-36) g/dL RDW Std Deviation (36.4-46.3) fL RDW Coeff of Tyson (11.5-14.5) % Plt Count (130-400) K/uL MPV (7.4-10.4) fL Immature Gran % (Auto) % Neut % (Auto) % Lymph % (Auto) % Johnson % (Auto) % Eos % (Auto) % Baso % (Auto) % Immature Gran # (Auto) (0.00-0.02) K/uL Neut # (Auto) (1.4-6.5) K/uL Lymph # (Auto) (1.2-3.4) K/uL Johnson # (Auto) (0.11-0.59) K/uL Eos # (Auto) (0-0.5) K/uL Baso # (Auto) (0-0.2) K/uL ESR (0-14) mm/hr PT (9.0-12.0) Seconds INR (0.9-1.1) APTT (21.0-31.0) Seconds PTT Ratio D-Dimer (0-500) ug/L FEU Sample Site R Radial POC pH 7.39 (7.35-7.45) POC pCO2 48 H (35-46) mmHg POC pO2 131 H (80-95) mmHg POC HCO3 29 H (19-24) jelly/L POC Total CO2 31 (24-31) mEq/l POC Base Excess 4.0 H (-9-1.8) jelly/L POC ABG O2 Sat 99.0 H (90-95) % Tahir Test Pass O2 Delivery Device BIPAP POC O2 Rate 16 POC FiO2 60 % IPAP 13 Sodium 139 139 (136-145) mmol/L Potassium 4.4 4.4 (3.5-5.1) mmol/L Chloride 101 101 (98-107) mmol/L Carbon Dioxide 33 H 32 (21-32) mmol/L Anion Gap 5.0 6.0 (3-11) BUN 33 H 36 H (7-18) mg/dl Creatinine 0.78 0.84 (0.6-1.4) mg/dl Est Cr Clr Drug Dosing 88.9 82.6 Est GFR ( Amer) 108.3 105.0 Est GFR (Non-Af Amer) 93.4 90.6 BUN/Creatinine Ratio 42.9 H 42.7 H (10-20) Glucose 84 95 (70-99) mg/dl POC Glucose (70-99) POC Lactic Acid Ivan (0.90-1.70) mmol/L Lactate (0.4-2.0) mmol/L Calcium 8.0 L 8.4 L (8.5-10.1) mg/dl Ionized Calcium (1.12-1.32) mmol/L Phosphorus Pending (2.5-4.9) mg/dl Magnesium 2.4 (1.8-2.4) mg/dl Total Bilirubin Pending (0.2-1) mg/dl AST 55 H (15-37) U/L ALT 41 (12-78) U/L Alkaline Phosphatase Pending (45-117) U/L Troponin I (0-0.045) ng/ml C-Reactive Protein (0-0.29) mg/dl NT-Pro-B Natriuret Pep (0-900) pg/ml Total Protein Pending (6.4-8.2) gm/dl Albumin 1.7 L (3.4-5.0) gm/dl Globulin Pending (2.5-4.0) gm/dl Albumin/Globulin Ratio Pending (0.9-2) Procalcitonin (0-0.5) ng/ml Random Cortisol mcg/dl Urine Color Urine Appearance (Clear) Urine pH (4.5-7.5) Ur Specific [place] (1.000-1.030) Urine Protein (Negative) Urine Glucose (UA) (Negative) Urine Ketones (Negative) Urine Blood (Negative) Urine Nitrite (Negative) Urine Bilirubin (Negative) Urine Urobilinogen (Negative) Ur Leukocyte Esterase (Negative) Urine WBC (Auto) (0-5) /hpf Urine RBC (Auto) (0-4) /hpf U Hyaline Cast (Auto) (0-5) /lpf U Epithel Cells (Auto) (0-5) /lpf Urine Bacteria (Auto) (Negative) Ur Renal Epithelial Cell Granular Casts (0) /lpf Urine Yeast Nasal Screen MRSA (PCR) (Negative) Valproic Acid (50-100) mcg/ml Hepatitis A IgM Ab Hep Bs Antigen (Neg) Hep B Core IgM Ab Hepatitis C Antibody (Neg) Influenza Type A (PCR) (Neg) Influenza Type B (PCR) (Neg) 12/12/18 12/12/18 12/12/18 Range/Units 16:39 16:39 16:39 WBC (4.8-10.8) K/uL RBC (4.7-6.1) M/uL Hgb (14.0-18.0) g/dL Hct (42-52) % MCV (80-100) fL MCH (25-34) pg MCHC (32-36) g/dL RDW Std Deviation (36.4-46.3) fL RDW Coeff of Tyson (11.5-14.5) % Plt Count (130-400) K/uL MPV (7.4-10.4) fL Immature Gran % (Auto) % Neut % (Auto) % Lymph % (Auto) % Johnson % (Auto) % Eos % (Auto) % Baso % (Auto) % Immature Gran # (Auto) (0.00-0.02) K/uL Neut # (Auto) (1.4-6.5) K/uL Lymph # (Auto) (1.2-3.4) K/uL Johnson # (Auto) (0.11-0.59) K/uL Eos # (Auto) (0-0.5) K/uL Baso # (Auto) (0-0.2) K/uL ESR (0-14) mm/hr PT (9.0-12.0) Seconds INR (0.9-1.1) APTT (21.0-31.0) Seconds PTT Ratio D-Dimer (0-500) ug/L FEU Sample Site POC pH (7.35-7.45) POC pCO2 (35-46) mmHg POC pO2 (80-95) mmHg POC HCO3 (19-24) jelly/L POC Total CO2 (24-31) mEq/l POC Base Excess (-9-1.8) jelly/L POC ABG O2 Sat (90-95) % Tahir Test O2 Delivery Device POC O2 Rate POC FiO2 % IPAP Sodium (136-145) mmol/L Potassium (3.5-5.1) mmol/L Chloride (98-107) mmol/L Carbon Dioxide (21-32) mmol/L Anion Gap (3-11) BUN (7-18) mg/dl Creatinine (0.6-1.4) mg/dl Est Cr Clr Drug Dosing Est GFR ( Amer) Est GFR (Non-Af Amer) BUN/Creatinine Ratio (10-20) Glucose (70-99) mg/dl POC Glucose (70-99) POC Lactic Acid Ivan (0.90-1.70) mmol/L Lactate (0.4-2.0) mmol/L Calcium (8.5-10.1) mg/dl Ionized Calcium 1.09 L (1.12-1.32) mmol/L Phosphorus (2.5-4.9) mg/dl Magnesium (1.8-2.4) mg/dl Total Bilirubin (0.2-1) mg/dl AST (15-37) U/L ALT (12-78) U/L Alkaline Phosphatase (45-117) U/L Troponin I (0-0.045) ng/ml C-Reactive Protein (0-0.29) mg/dl NT-Pro-B Natriuret Pep (0-900) pg/ml Total Protein (6.4-8.2) gm/dl Albumin (3.4-5.0) gm/dl Globulin (2.5-4.0) gm/dl Albumin/Globulin Ratio (0.9-2) Procalcitonin 1.74 H (0-0.5) ng/ml Random Cortisol mcg/dl Urine Color Urine Appearance (Clear) Urine pH (4.5-7.5) Ur Specific [place] (1.000-1.030) Urine Protein (Negative) Urine Glucose (UA) (Negative) Urine Ketones (Negative) Urine Blood (Negative) Urine Nitrite (Negative) Urine Bilirubin (Negative) Urine Urobilinogen (Negative) Ur Leukocyte Esterase (Negative) Urine WBC (Auto) (0-5) /hpf Urine RBC (Auto) (0-4) /hpf U Hyaline Cast (Auto) (0-5) /lpf U Epithel Cells (Auto) (0-5) /lpf Urine Bacteria (Auto) (Negative) Ur Renal Epithelial Cell Granular Casts (0) /lpf Urine Yeast Nasal Screen MRSA (PCR) (Negative) Valproic Acid 51 (50-100) mcg/ml Hepatitis A IgM Ab Hep Bs Antigen (Neg) Hep B Core IgM Ab Hepatitis C Antibody (Neg) Influenza Type A (PCR) (Neg) Influenza Type B (PCR) (Neg) 12/12/18 12/12/18 12/12/18 Range/Units 16:39 16:39 16:39 WBC (4.8-10.8) K/uL RBC (4.7-6.1) M/uL Hgb (14.0-18.0) g/dL Hct (42-52) % MCV (80-100) fL MCH (25-34) pg MCHC (32-36) g/dL RDW Std Deviation (36.4-46.3) fL RDW Coeff of Tyson (11.5-14.5) % Plt Count (130-400) K/uL MPV (7.4-10.4) fL Immature Gran % (Auto) % Neut % (Auto) % Lymph % (Auto) % Johnson % (Auto) % Eos % (Auto) % Baso % (Auto) % Immature Gran # (Auto) (0.00-0.02) K/uL Neut # (Auto) (1.4-6.5) K/uL Lymph # (Auto) (1.2-3.4) K/uL Johnson # (Auto) (0.11-0.59) K/uL Eos # (Auto) (0-0.5) K/uL Baso # (Auto) (0-0.2) K/uL ESR 72 H (0-14) mm/hr PT (9.0-12.0) Seconds INR (0.9-1.1) APTT (21.0-31.0) Seconds PTT Ratio D-Dimer (0-500) ug/L FEU Sample Site POC pH (7.35-7.45) POC pCO2 (35-46) mmHg POC pO2 (80-95) mmHg POC HCO3 (19-24) jelly/L POC Total CO2 (24-31) mEq/l POC Base Excess (-9-1.8) jelly/L POC ABG O2 Sat (90-95) % Tahir Test O2 Delivery Device POC O2 Rate POC FiO2 % IPAP Sodium 138 (136-145) mmol/L Potassium 4.4 (3.5-5.1) mmol/L Chloride 100 (98-107) mmol/L Carbon Dioxide 33 H (21-32) mmol/L Anion Gap 6.0 (3-11) BUN 40 H (7-18) mg/dl Creatinine 1.01 (0.6-1.4) mg/dl Est Cr Clr Drug Dosing 68.7 Est GFR ( Amer) 88.8 Est GFR (Non-Af Amer) 76.6 BUN/Creatinine Ratio 39.2 H (10-20) Glucose 129 H (70-99) mg/dl POC Glucose (70-99) POC Lactic Acid Ivan (0.90-1.70) mmol/L Lactate 3.1 H* (0.4-2.0) mmol/L Calcium 8.5 (8.5-10.1) mg/dl Ionized Calcium (1.12-1.32) mmol/L Phosphorus 5.5 H (2.5-4.9) mg/dl Magnesium 2.3 (1.8-2.4) mg/dl Total Bilirubin 0.3 (0.2-1) mg/dl AST 56 H (15-37) U/L ALT 36 (12-78) U/L Alkaline Phosphatase 60 (45-117) U/L Troponin I < 0.015 (0-0.045) ng/ml C-Reactive Protein 27.10 H (0-0.29) mg/dl NT-Pro-B Natriuret Pep 852 (0-900) pg/ml Total Protein 6.6 (6.4-8.2) gm/dl Albumin 1.9 L (3.4-5.0) gm/dl Globulin 4.7 H (2.5-4.0) gm/dl Albumin/Globulin Ratio 0.4 L (0.9-2) Procalcitonin (0-0.5) ng/ml Random Cortisol mcg/dl Urine Color Urine Appearance (Clear) Urine pH (4.5-7.5) Ur Specific [place] (1.000-1.030) Urine Protein (Negative) Urine Glucose (UA) (Negative) Urine Ketones (Negative) Urine Blood (Negative) Urine Nitrite (Negative) Urine Bilirubin (Negative) Urine Urobilinogen (Negative) Ur Leukocyte Esterase (Negative) Urine WBC (Auto) (0-5) /hpf Urine RBC (Auto) (0-4) /hpf U Hyaline Cast (Auto) (0-5) /lpf U Epithel Cells (Auto) (0-5) /lpf Urine Bacteria (Auto) (Negative) Ur Renal Epithelial Cell Granular Casts (0) /lpf Urine Yeast Nasal Screen MRSA (PCR) (Negative) Valproic Acid (50-100) mcg/ml Hepatitis A IgM Ab Hep Bs Antigen (Neg) Hep B Core IgM Ab Hepatitis C Antibody (Neg) Influenza Type A (PCR) (Neg) Influenza Type B (PCR) (Neg) 12/12/18 12/12/18 12/12/18 Range/Units 16:39 16:11 16:05 WBC (4.8-10.8) K/uL RBC (4.7-6.1) M/uL Hgb (14.0-18.0) g/dL Hct (42-52) % MCV (80-100) fL MCH (25-34) pg MCHC (32-36) g/dL RDW Std Deviation (36.4-46.3) fL RDW Coeff of Tyson (11.5-14.5) % Plt Count (130-400) K/uL MPV (7.4-10.4) fL Immature Gran % (Auto) % Neut % (Auto) % Lymph % (Auto) % Johnson % (Auto) % Eos % (Auto) % Baso % (Auto) % Immature Gran # (Auto) (0.00-0.02) K/uL Neut # (Auto) (1.4-6.5) K/uL Lymph # (Auto) (1.2-3.4) K/uL Johnson # (Auto) (0.11-0.59) K/uL Eos # (Auto) (0-0.5) K/uL Baso # (Auto) (0-0.2) K/uL ESR (0-14) mm/hr PT (9.0-12.0) Seconds INR (0.9-1.1) APTT (21.0-31.0) Seconds PTT Ratio D-Dimer 4400 H* (0-500) ug/L FEU Sample Site POC pH (7.35-7.45) POC pCO2 (35-46) mmHg POC pO2 (80-95) mmHg POC HCO3 (19-24) jelly/L POC Total CO2 (24-31) mEq/l POC Base Excess (-9-1.8) jelly/L POC ABG O2 Sat (90-95) % Tahir Test O2 Delivery Device POC O2 Rate POC FiO2 % IPAP Sodium (136-145) mmol/L Potassium (3.5-5.1) mmol/L Chloride (98-107) mmol/L Carbon Dioxide (21-32) mmol/L Anion Gap (3-11) BUN (7-18) mg/dl Creatinine (0.6-1.4) mg/dl Est Cr Clr Drug Dosing Est GFR ( Amer) Est GFR (Non-Af Amer) BUN/Creatinine Ratio (10-20) Glucose (70-99) mg/dl POC Glucose 156 H (70-99) POC Lactic Acid Ivan (0.90-1.70) mmol/L Lactate (0.4-2.0) mmol/L Calcium (8.5-10.1) mg/dl Ionized Calcium (1.12-1.32) mmol/L Phosphorus (2.5-4.9) mg/dl Magnesium (1.8-2.4) mg/dl Total Bilirubin (0.2-1) mg/dl AST (15-37) U/L ALT (12-78) U/L Alkaline Phosphatase (45-117) U/L Troponin I (0-0.045) ng/ml C-Reactive Protein (0-0.29) mg/dl NT-Pro-B Natriuret Pep (0-900) pg/ml Total Protein (6.4-8.2) gm/dl Albumin (3.4-5.0) gm/dl Globulin (2.5-4.0) gm/dl Albumin/Globulin Ratio (0.9-2) Procalcitonin (0-0.5) ng/ml Random Cortisol mcg/dl Urine Color Urine Appearance (Clear) Urine pH (4.5-7.5) Ur Specific [place] (1.000-1.030) Urine Protein (Negative) Urine Glucose (UA) (Negative) Urine Ketones (Negative) Urine Blood (Negative) Urine Nitrite (Negative) Urine Bilirubin (Negative) Urine Urobilinogen (Negative) Ur Leukocyte Esterase (Negative) Urine WBC (Auto) (0-5) /hpf Urine RBC (Auto) (0-4) /hpf U Hyaline Cast (Auto) (0-5) /lpf U Epithel Cells (Auto) (0-5) /lpf Urine Bacteria (Auto) (Negative) Ur Renal Epithelial Cell Granular Casts (0) /lpf Urine Yeast Nasal Screen MRSA (PCR) Positive A (Negative) Valproic Acid (50-100) mcg/ml Hepatitis A IgM Ab Hep Bs Antigen (Neg) Hep B Core IgM Ab Hepatitis C Antibody (Neg) Influenza Type A (PCR) (Neg) Influenza Type B (PCR) (Neg) 12/12/18 12/12/18 12/12/18 Range/Units 12:05 12:04 11:30 WBC (4.8-10.8) K/uL RBC (4.7-6.1) M/uL Hgb (14.0-18.0) g/dL Hct (42-52) % MCV (80-100) fL MCH (25-34) pg MCHC (32-36) g/dL RDW Std Deviation (36.4-46.3) fL RDW Coeff of Tyson (11.5-14.5) % Plt Count (130-400) K/uL MPV (7.4-10.4) fL Immature Gran % (Auto) % Neut % (Auto) % Lymph % (Auto) % Johnson % (Auto) % Eos % (Auto) % Baso % (Auto) % Immature Gran # (Auto) (0.00-0.02) K/uL Neut # (Auto) (1.4-6.5) K/uL Lymph # (Auto) (1.2-3.4) K/uL Johnson # (Auto) (0.11-0.59) K/uL Eos # (Auto) (0-0.5) K/uL Baso # (Auto) (0-0.2) K/uL ESR (0-14) mm/hr PT (9.0-12.0) Seconds INR (0.9-1.1) APTT (21.0-31.0) Seconds PTT Ratio D-Dimer (0-500) ug/L FEU Sample Site POC pH (7.35-7.45) POC pCO2 (35-46) mmHg POC pO2 (80-95) mmHg POC HCO3 (19-24) jelly/L POC Total CO2 (24-31) mEq/l POC Base Excess (-9-1.8) jelly/L POC ABG O2 Sat (90-95) % Tahir Test O2 Delivery Device POC O2 Rate POC FiO2 % IPAP Sodium (136-145) mmol/L Potassium (3.5-5.1) mmol/L Chloride (98-107) mmol/L Carbon Dioxide (21-32) mmol/L Anion Gap (3-11) BUN (7-18) mg/dl Creatinine (0.6-1.4) mg/dl Est Cr Clr Drug Dosing Est GFR ( Amer) Est GFR (Non-Af Amer) BUN/Creatinine Ratio (10-20) Glucose (70-99) mg/dl POC Glucose (70-99) POC Lactic Acid Ivan 1.48 (0.90-1.70) mmol/L Lactate (0.4-2.0) mmol/L Calcium (8.5-10.1) mg/dl Ionized Calcium (1.12-1.32) mmol/L Phosphorus (2.5-4.9) mg/dl Magnesium (1.8-2.4) mg/dl Total Bilirubin (0.2-1) mg/dl AST (15-37) U/L ALT (12-78) U/L Alkaline Phosphatase (45-117) U/L Troponin I (0-0.045) ng/ml C-Reactive Protein (0-0.29) mg/dl NT-Pro-B Natriuret Pep (0-900) pg/ml Total Protein (6.4-8.2) gm/dl Albumin (3.4-5.0) gm/dl Globulin (2.5-4.0) gm/dl Albumin/Globulin Ratio (0.9-2) Procalcitonin (0-0.5) ng/ml Random Cortisol mcg/dl Urine Color Dark Yellow Urine Appearance Cloudy H (Clear) Urine pH 5.0 (4.5-7.5) Ur Specific [place] 1.024 (1.000-1.030) Urine Protein Negative (Negative) Urine Glucose (UA) Negative (Negative) Urine Ketones Negative (Negative) Urine Blood Negative (Negative) Urine Nitrite Negative (Negative) Urine Bilirubin Negative (Negative) Urine Urobilinogen Negative (Negative) Ur Leukocyte Esterase 2+ H (Negative) Urine WBC (Auto) 10-30 H (0-5) /hpf Urine RBC (Auto) 0-4 (0-4) /hpf U Hyaline Cast (Auto) 10-30 H (0-5) /lpf U Epithel Cells (Auto) >30 H (0-5) /lpf Urine Bacteria (Auto) 1+ H (Negative) Ur Renal Epithelial Cell Not Reportable Granular Casts 5-10 H (0) /lpf Urine Yeast Not Reportable Nasal Screen MRSA (PCR) (Negative) Valproic Acid (50-100) mcg/ml Hepatitis A IgM Ab Hep Bs Antigen (Neg) Hep B Core IgM Ab Hepatitis C Antibody (Neg) Influenza Type A (PCR) Neg for Influ A (Neg) Influenza Type B (PCR) Neg for Influ B (Neg) 12/12/18 12/12/18 12/12/18 Range/Units 11:24 11:24 11:24 WBC (4.8-10.8) K/uL RBC (4.7-6.1) M/uL Hgb (14.0-18.0) g/dL Hct (42-52) % MCV (80-100) fL MCH (25-34) pg MCHC (32-36) g/dL RDW Std Deviation (36.4-46.3) fL RDW Coeff of Tyson (11.5-14.5) % Plt Count (130-400) K/uL MPV (7.4-10.4) fL Immature Gran % (Auto) % Neut % (Auto) % Lymph % (Auto) % Johnson % (Auto) % Eos % (Auto) % Baso % (Auto) % Immature Gran # (Auto) (0.00-0.02) K/uL Neut # (Auto) (1.4-6.5) K/uL Lymph # (Auto) (1.2-3.4) K/uL Johnson # (Auto) (0.11-0.59) K/uL Eos # (Auto) (0-0.5) K/uL Baso # (Auto) (0-0.2) K/uL ESR (0-14) mm/hr PT (9.0-12.0) Seconds INR (0.9-1.1) APTT (21.0-31.0) Seconds PTT Ratio D-Dimer (0-500) ug/L FEU Sample Site POC pH (7.35-7.45) POC pCO2 (35-46) mmHg POC pO2 (80-95) mmHg POC HCO3 (19-24) jelly/L POC Total CO2 (24-31) mEq/l POC Base Excess (-9-1.8) jelly/L POC ABG O2 Sat (90-95) % Tahir Test O2 Delivery Device POC O2 Rate POC FiO2 % IPAP Sodium (136-145) mmol/L Potassium (3.5-5.1) mmol/L Chloride (98-107) mmol/L Carbon Dioxide (21-32) mmol/L Anion Gap (3-11) BUN (7-18) mg/dl Creatinine (0.6-1.4) mg/dl Est Cr Clr Drug Dosing Est GFR ( Amer) Est GFR (Non-Af Amer) BUN/Creatinine Ratio (10-20) Glucose (70-99) mg/dl POC Glucose (70-99) POC Lactic Acid Ivan (0.90-1.70) mmol/L Lactate (0.4-2.0) mmol/L Calcium (8.5-10.1) mg/dl Ionized Calcium (1.12-1.32) mmol/L Phosphorus (2.5-4.9) mg/dl Magnesium (1.8-2.4) mg/dl Total Bilirubin (0.2-1) mg/dl AST (15-37) U/L ALT (12-78) U/L Alkaline Phosphatase (45-117) U/L Troponin I (0-0.045) ng/ml C-Reactive Protein (0-0.29) mg/dl NT-Pro-B Natriuret Pep (0-900) pg/ml Total Protein (6.4-8.2) gm/dl Albumin (3.4-5.0) gm/dl Globulin (2.5-4.0) gm/dl Albumin/Globulin Ratio (0.9-2) Procalcitonin (0-0.5) ng/ml Random Cortisol 25.81 mcg/dl Urine Color Urine Appearance (Clear) Urine pH (4.5-7.5) Ur Specific [place] (1.000-1.030) Urine Protein (Negative) Urine Glucose (UA) (Negative) Urine Ketones (Negative) Urine Blood (Negative) Urine Nitrite (Negative) Urine Bilirubin (Negative) Urine Urobilinogen (Negative) Ur Leukocyte Esterase (Negative) Urine WBC (Auto) (0-5) /hpf Urine RBC (Auto) (0-4) /hpf U Hyaline Cast (Auto) (0-5) /lpf U Epithel Cells (Auto) (0-5) /lpf Urine Bacteria (Auto) (Negative) Ur Renal Epithelial Cell Granular Casts (0) /lpf Urine Yeast Nasal Screen MRSA (PCR) (Negative) Valproic Acid (50-100) mcg/ml Hepatitis A IgM Ab Pending Hep Bs Antigen Neg (Neg) Hep B Core IgM Ab Pending Hepatitis C Antibody Neg (Neg) Influenza Type A (PCR) (Neg) Influenza Type B (PCR) (Neg) 12/12/18 12/12/18 12/12/18 Range/Units 11:24 11:24 11:24 WBC 10.62 (4.8-10.8) K/uL RBC 3.43 L (4.7-6.1) M/uL Hgb 11.0 L (14.0-18.0) g/dL Hct 33.0 L (42-52) % MCV 96.2 (80-100) fL MCH 32.1 (25-34) pg MCHC 33.3 (32-36) g/dL RDW Std Deviation 57.4 H (36.4-46.3) fL RDW Coeff of Tyson 16.3 H (11.5-14.5) % Plt Count 216 (130-400) K/uL MPV 9.6 (7.4-10.4) fL Immature Gran % (Auto) 1.2 % Neut % (Auto) 71.9 % Lymph % (Auto) 5.3 % Johnson % (Auto) 21.1 % Eos % (Auto) 0.4 % Baso % (Auto) 0.1 % Immature Gran # (Auto) 0.13 H (0.00-0.02) K/uL Neut # (Auto) 7.64 H (1.4-6.5) K/uL Lymph # (Auto) 0.56 L (1.2-3.4) K/uL Johnson # (Auto) 2.24 H (0.11-0.59) K/uL Eos # (Auto) 0.04 (0-0.5) K/uL Baso # (Auto) 0.01 (0-0.2) K/uL ESR (0-14) mm/hr PT 11.1 (9.0-12.0) Seconds INR 1.1 (0.9-1.1) APTT 30.8 (21.0-31.0) Seconds PTT Ratio 1.1 D-Dimer (0-500) ug/L FEU Sample Site POC pH (7.35-7.45) POC pCO2 (35-46) mmHg POC pO2 (80-95) mmHg POC HCO3 (19-24) jelly/L POC Total CO2 (24-31) mEq/l POC Base Excess (-9-1.8) jelly/L POC ABG O2 Sat (90-95) % Tahir Test O2 Delivery Device POC O2 Rate POC FiO2 % IPAP Sodium 133 L (136-145) mmol/L Potassium 4.4 (3.5-5.1) mmol/L Chloride 96 L (98-107) mmol/L Carbon Dioxide 33 H (21-32) mmol/L Anion Gap 4.0 (3-11) BUN 43 H (7-18) mg/dl Creatinine 1.03 (0.6-1.4) mg/dl Est Cr Clr Drug Dosing Not Reportable Est GFR ( Amer) 86.7 Est GFR (Non-Af Amer) 74.8 BUN/Creatinine Ratio 41.5 H (10-20) Glucose 149 H (70-99) mg/dl POC Glucose (70-99) POC Lactic Acid Ivan (0.90-1.70) mmol/L Lactate (0.4-2.0) mmol/L Calcium 8.3 L (8.5-10.1) mg/dl Ionized Calcium (1.12-1.32) mmol/L Phosphorus (2.5-4.9) mg/dl Magnesium (1.8-2.4) mg/dl Total Bilirubin 0.3 (0.2-1) mg/dl AST 63 H (15-37) U/L ALT 36 (12-78) U/L Alkaline Phosphatase 64 (45-117) U/L Troponin I (0-0.045) ng/ml C-Reactive Protein (0-0.29) mg/dl NT-Pro-B Natriuret Pep (0-900) pg/ml Total Protein 7.1 (6.4-8.2) gm/dl Albumin 2.0 L (3.4-5.0) gm/dl Globulin 5.1 H (2.5-4.0) gm/dl Albumin/Globulin Ratio 0.4 L (0.9-2) Procalcitonin (0-0.5) ng/ml Random Cortisol mcg/dl Urine Color Urine Appearance (Clear) Urine pH (4.5-7.5) Ur Specific [place] (1.000-1.030) Urine Protein (Negative) Urine Glucose (UA) (Negative) Urine Ketones (Negative) Urine Blood (Negative) Urine Nitrite (Negative) Urine Bilirubin (Negative) Urine Urobilinogen (Negative) Ur Leukocyte Esterase (Negative) Urine WBC (Auto) (0-5) /hpf Urine RBC (Auto) (0-4) /hpf U Hyaline Cast (Auto) (0-5) /lpf U Epithel Cells (Auto) (0-5) /lpf Urine Bacteria (Auto) (Negative) Ur Renal Epithelial Cell Granular Casts (0) /lpf Urine Yeast Nasal Screen MRSA (PCR) (Negative) Valproic Acid (50-100) mcg/ml Hepatitis A IgM Ab Hep Bs Antigen (Neg) Hep B Core IgM Ab Hepatitis C Antibody (Neg) Influenza Type A (PCR) (Neg) Influenza Type B (PCR) (Neg) 12/12/18 Range/Units 11:24 WBC (4.8-10.8) K/uL RBC (4.7-6.1) M/uL Hgb (14.0-18.0) g/dL Hct (42-52) % MCV (80-100) fL MCH (25-34) pg MCHC (32-36) g/dL RDW Std Deviation (36.4-46.3) fL RDW Coeff of Tyson (11.5-14.5) % Plt Count (130-400) K/uL MPV (7.4-10.4) fL Immature Gran % (Auto) % Neut % (Auto) % Lymph % (Auto) % Johnson % (Auto) % Eos % (Auto) % Baso % (Auto) % Immature Gran # (Auto) (0.00-0.02) K/uL Neut # (Auto) (1.4-6.5) K/uL Lymph # (Auto) (1.2-3.4) K/uL Johnson # (Auto) (0.11-0.59) K/uL Eos # (Auto) (0-0.5) K/uL Baso # (Auto) (0-0.2) K/uL ESR (0-14) mm/hr PT (9.0-12.0) Seconds INR (0.9-1.1) APTT (21.0-31.0) Seconds PTT Ratio D-Dimer (0-500) ug/L FEU Sample Site POC pH (7.35-7.45) POC pCO2 (35-46) mmHg POC pO2 (80-95) mmHg POC HCO3 (19-24) jelly/L POC Total CO2 (24-31) mEq/l POC Base Excess (-9-1.8) jelly/L POC ABG O2 Sat (90-95) % Tahir Test O2 Delivery Device POC O2 Rate POC FiO2 % IPAP Sodium (136-145) mmol/L Potassium (3.5-5.1) mmol/L Chloride (98-107) mmol/L Carbon Dioxide (21-32) mmol/L Anion Gap (3-11) BUN (7-18) mg/dl Creatinine (0.6-1.4) mg/dl Est Cr Clr Drug Dosing Est GFR ( Amer) Est GFR (Non-Af Amer) BUN/Creatinine Ratio (10-20) Glucose (70-99) mg/dl POC Glucose (70-99) POC Lactic Acid Ivan (0.90-1.70) mmol/L Lactate (0.4-2.0) mmol/L Calcium (8.5-10.1) mg/dl Ionized Calcium (1.12-1.32) mmol/L Phosphorus (2.5-4.9) mg/dl Magnesium 2.5 H (1.8-2.4) mg/dl Total Bilirubin (0.2-1) mg/dl AST (15-37) U/L ALT (12-78) U/L Alkaline Phosphatase (45-117) U/L Troponin I < 0.015 (0-0.045) ng/ml C-Reactive Protein (0-0.29) mg/dl NT-Pro-B Natriuret Pep (0-900) pg/ml Total Protein (6.4-8.2) gm/dl Albumin (3.4-5.0) gm/dl Globulin (2.5-4.0) gm/dl Albumin/Globulin Ratio (0.9-2) Procalcitonin (0-0.5) ng/ml Random Cortisol mcg/dl Urine Color Urine Appearance (Clear) Urine pH (4.5-7.5) Ur Specific [place] (1.000-1.030) Urine Protein (Negative) Urine Glucose (UA) (Negative) Urine Ketones (Negative) Urine Blood (Negative) Urine Nitrite (Negative) Urine Bilirubin (Negative) Urine Urobilinogen (Negative) Ur Leukocyte Esterase (Negative) Urine WBC (Auto) (0-5) /hpf Urine RBC (Auto) (0-4) /hpf U Hyaline Cast (Auto) (0-5) /lpf U Epithel Cells (Auto) (0-5) /lpf Urine Bacteria (Auto) (Negative) Ur Renal Epithelial Cell Granular Casts (0) /lpf Urine Yeast Nasal Screen MRSA (PCR) (Negative) Valproic Acid (50-100) mcg/ml Hepatitis A IgM Ab Hep Bs Antigen (Neg) Hep B Core IgM Ab Hepatitis C Antibody (Neg) Influenza Type A (PCR) (Neg) Influenza Type B (PCR) (Neg) Diagnostic Findings I have reviewed the radiology report of the venous duplex which was negative for acute DVT I reviewed the CTA of the chest which demonstrated dense bibasilar airspace consolidation most typical for multifocal pneumonia/aspiration pneumonitis (1) Altered mental status, unspecified Altered mental status type: coma Coma depth: [place] coma 9-12 Coma timing: unspecified coma timing Qualified Code(s): R40.2420 - Tina coma scale score 9-12, unspecified time
[2018-12-13] MEDS ORDERED: PEPTAMEN INTENSE VHP 1.0 CAL 1,000 ML BAG PEG SCH (09:00)
--- NOTE | 2018-12-13 15:04 | Hospitalist Progress Note ---
Date of Service December 13, 2018 Assessment & Plan (1) Aspiration into airway: (2) Acute respiratory failure: 68-year-old white male resident from local retirement [facility] admitted on December 12, 2018 to the hospital for direct admission because of hypoxia , aspiration respiratory failure. Acute respiratory failure, possible hypoxic respiratory failure secondary to aspiration Aspiration and choking, possible aspiration pneumonitis or pneumonia Borderline low blood pressure Wounds in the talk area prior to admission Possible sepsis upon admission with possible fever PEG tube feeding for unknown reason history of anxiety, bipolar, BPH, OCD, depression, GERD,: Labs such as TSH unremarkable, continue current care GI DVT prophylaxis covered, discussed with ICU service Subjective Nursing staff report most of the time required BiPAP machine, sometimes wake up Afebrile Has been on tube feeding Blood pressure in borderline low No spiking fever When I seeing him he was on BiPAP machine Not applicable Currently no fever, does not required pressor support, review of system is limited Physical Exam Vital Signs (Past 24 Hours): Last Vital Signs Temp 36.8 C 12/13/18 08:01 Pulse 85 12/13/18 14:01 Resp 18 12/13/18 14:01 BP 95/56 L 12/13/18 14:00 Pulse Ox 96 12/13/18 14:01 Physical Exam: General Appearance: On BiPAP machine, possible basic mental status was low prior to admission Eyes: normal inspection ENT: normal ENT inspection, hearing grossly normal Neck: supple, no adenopathy, thyroid normal, Respiratory/Chest: chest non-tender, coarse normal breath sounds, somes rales and wheezing Cardiovascular: regular rate, rhythm, no JVD, no murmur Abdomen: normal bowel sounds, PEG tube in place, soft, no organomegaly, , Noble catheter in place Extremities: normal range of motion, non-tender, normal inspection, no pedal edema, no calf tenderness, Neurologic/Psychiatric: No facial droop Skin: normal color, warm/dry, no rash Lymphatic: no adenopathy Results & Data Laboratory Results Laboratory Results - last 24 hr 12/12/18 12/12/18 12/12/18 11:24 11:24 16:05 ESR D-Dimer Sample Site POC pH POC pCO2 POC pO2 POC HCO3 POC Total CO2 POC Base Excess POC ABG O2 Sat Tahir Test O2 Delivery Device POC O2 Rate POC FiO2 IPAP Sodium Potassium Chloride Carbon Dioxide Anion Gap BUN Creatinine Est Cr Clr Drug Dosing Est GFR ( Amer) Est GFR (Non-Af Amer) BUN/Creatinine Ratio Glucose POC Glucose 156 H Lactate Calcium Ionized Calcium Phosphorus Magnesium Total Bilirubin AST ALT Alkaline Phosphatase Troponin I C-Reactive Protein NT-Pro-B Natriuret Pep Total Protein Albumin Globulin Albumin/Globulin Ratio Procalcitonin Random Cortisol 25.81 Nasal Screen MRSA (PCR) Valproic Acid Hep Bs Antigen Neg Hepatitis C Antibody Neg 12/12/18 12/12/18 12/12/18 16:11 16:39 16:39 ESR D-Dimer 4400 H* Sample Site POC pH POC pCO2 POC pO2 POC HCO3 POC Total CO2 POC Base Excess POC ABG O2 Sat Tahir Test O2 Delivery Device POC O2 Rate POC FiO2 IPAP Sodium Potassium Chloride Carbon Dioxide Anion Gap BUN Creatinine Est Cr Clr Drug Dosing Est GFR ( Amer) Est GFR (Non-Af Amer) BUN/Creatinine Ratio Glucose POC Glucose Lactate 3.1 H* Calcium Ionized Calcium Phosphorus Magnesium Total Bilirubin AST ALT Alkaline Phosphatase Troponin I C-Reactive Protein NT-Pro-B Natriuret Pep Total Protein Albumin Globulin Albumin/Globulin Ratio Procalcitonin Random Cortisol Nasal Screen MRSA (PCR) Positive A Valproic Acid Hep Bs Antigen Hepatitis C Antibody 12/12/18 12/12/18 12/12/18 16:39 16:39 16:39 ESR 72 H D-Dimer Sample Site POC pH POC pCO2 POC pO2 POC HCO3 POC Total CO2 POC Base Excess POC ABG O2 Sat Tahir Test O2 Delivery Device POC O2 Rate POC FiO2 IPAP Sodium 138 Potassium 4.4 Chloride 100 Carbon Dioxide 33 H Anion Gap 6.0 BUN 40 H Creatinine 1.01 Est Cr Clr Drug Dosing 68.7 Est GFR ( Amer) 88.8 Est GFR (Non-Af Amer) 76.6 BUN/Creatinine Ratio 39.2 H Glucose 129 H POC Glucose Lactate Calcium 8.5 Ionized Calcium Phosphorus 5.5 H Magnesium 2.3 Total Bilirubin 0.3 AST 56 H ALT 36 Alkaline Phosphatase 60 Troponin I < 0.015 C-Reactive Protein 27.10 H NT-Pro-B Natriuret Pep 852 Total Protein 6.6 Albumin 1.9 L Globulin 4.7 H Albumin/Globulin Ratio 0.4 L Procalcitonin 1.74 H Random Cortisol Nasal Screen MRSA (PCR) Valproic Acid Hep Bs Antigen Hepatitis C Antibody 12/12/18 12/12/18 12/12/18 16:39 16:39 16:54 ESR D-Dimer Sample Site R Radial POC pH 7.39 POC pCO2 48 H POC pO2 131 H POC HCO3 29 H POC Total CO2 31 POC Base Excess 4.0 H POC ABG O2 Sat 99.0 H Tahir Test Pass O2 Delivery Device BIPAP POC O2 Rate 16 POC FiO2 60 IPAP 13 Sodium Potassium Chloride Carbon Dioxide Anion Gap BUN Creatinine Est Cr Clr Drug Dosing Est GFR ( Amer) Est GFR (Non-Af Amer) BUN/Creatinine Ratio Glucose POC Glucose Lactate Calcium Ionized Calcium 1.09 L Phosphorus Magnesium Total Bilirubin AST ALT Alkaline Phosphatase Troponin I C-Reactive Protein NT-Pro-B Natriuret Pep Total Protein Albumin Globulin Albumin/Globulin Ratio Procalcitonin Random Cortisol Nasal Screen MRSA (PCR) Valproic Acid 51 Hep Bs Antigen Hepatitis C Antibody 12/13/18 12/13/18 12/13/18 05:06 07:46 10:25 ESR D-Dimer Sample Site POC pH POC pCO2 POC pO2 POC HCO3 POC Total CO2 POC Base Excess POC ABG O2 Sat Tahir Test O2 Delivery Device POC O2 Rate POC FiO2 IPAP Sodium 139 139 Potassium 4.4 4.4 Chloride 101 101 Carbon Dioxide 32 33 H Anion Gap 6.0 5.0 BUN 36 H 33 H Creatinine 0.84 0.78 Est Cr Clr Drug Dosing 82.6 88.9 Est GFR ( Amer) 105.0 108.3 Est GFR (Non-Af Amer) 90.6 93.4 BUN/Creatinine Ratio 42.7 H 42.9 H Glucose 95 84 POC Glucose 81 Lactate Calcium 8.4 L 8.0 L Ionized Calcium Phosphorus 4.3 D Magnesium 2.4 Total Bilirubin 0.3 AST 55 H ALT 41 Alkaline Phosphatase 56 Troponin I C-Reactive Protein NT-Pro-B Natriuret Pep Total Protein 6.1 L Albumin 1.7 L Globulin 4.4 H Albumin/Globulin Ratio 0.4 L Procalcitonin Random Cortisol Nasal Screen MRSA (PCR) Valproic Acid Hep Bs Antigen Hepatitis C Antibody Microbiology 12/12/18 12:05 Urine,Indwelling Cath Urine Culture - Preliminary No growth - Less than 1,000 colonies/mL, Final report to follow. 12/12/18 Unknown Sputum, Expectorated Gram Stain - Final 12/12/18 Unknown Sputum, Expectorated Sputum Culture - Preliminary Staphylococcus aureus 12/12/18 12:05 Sputum,Trach Gram Stain - Final 12/12/18 12:05 Sputum,Trach Sputum Culture - Preliminary Staphylococcus aureus (1) Aspiration into airway Encounter type: initial encounter Qualified Code(s): T17.908A - Unspecified foreign body in respiratory tract, part unspecified causing other injury, initial encounter (2) Acute respiratory failure Respiratory failure complication: unspecified whether with hypoxia or hypercapnia Qualified Code(s): J96.00 - Acute respiratory failure, unspecified whether with hypoxia or hypercapnia
[2018-12-13 16:57] LABS: iSTAT Allen Test Pass; iSTAT Arterial Blood Gas HCO3 33 meg/L (19-24); iSTAT Arterial Blood Gas pCO2 56 mmHg (35-46); iSTAT Arterial Blood Gas pH 7.38 (7.35-7.45); iSTAT Carbon Dioxide 34 mEq/l (24-31); iSTAT FiO2 60 %; iSTAT Site R Radial
[2018-12-13] MEDS: ENOXAPARIN INJ 40 MG/0.4 ML SYR SQ SCH (17:07)
[2018-12-14] MEDS: PIPERACILLIN/TAZOBACTAM 4.5 GM in DEXTROSE 5% 100 ML IV SCH ×3 (01:37→17:02)
--- NOTE | 2018-12-14 05:26 | Critical Care Progress Note ---
Date of Service December 14, 2018 Assessment & Plan (1) Altered mental status, unspecified: Reason Critically Ill: 68-year-old male acute hypoxic respiratory failure PLAN: Neuro: Altered mental status: [place] Coma Scale: Eyes: 4, Verbal 4, Motor 6, Total 14 -Unclear if this is acute or chronic Likely mood disorder -Anxiety, OCD, bipolar listed in hospitalist notes -Depakote within normal limits Resp: Acute hypoxic respiratory failure with hypercarbia: Improved -Question pneumonia versus mucoid impaction versus aspiration into airway -BiPAP 16/8 40% FiO2 -Will de-escalate vancomycin as there does not appear to be necrotic formation at this time -group home resident at risk for multidrug-resistant organisms, healthcare associated pneumonia we will continue with Zosyn at this time -At this time I feel his staph aureus is likely colonization not indicative of active infection. Staph aureus pulmonary infections are very virulent and typically are very aggressive, his clinical picture is most consistent with aspiration pneumonitis Right lower lobe mucoid impaction -Mucomyst -Chest physiotherapy CV: Abnormal EKG: Interventricular conduction delay, nonspecific -Troponins negative x1 Fluids/Renal: Hyponatremia: Resolved Hypochloremia: Resolved -Discontinuing IV fluids for tube feeds ID: Possible source of infection: -Pneumonia: Nasotracheal suction sputum obtained -UTI: Micro: No growth -intra-abdominal: Unlikely -Hepatitis panel negative GI/Nutrition: Elevated AST: Improved PEG tube present -Tolerating tube feeds Heme: Anemia -Unclear if this is acute or chronic DVT prophylaxis: Heparin twice daily Elevated d-dimer: No DVT no PE on advanced imaging -group home resident: Unknown level of activity Endocrine: ICU hyperglycemia protocol Elevated blood sugar Vascular access: Peripheral IVs Code Status: Full code Critical care issues have resolved. Goal will be to prevent future aspiration events, maintain head of bed elevation. Stable for downgrade out of ICU. (2) Acute hypoxemic respiratory failure: (3) Anemia: (4) Hyponatremia: (5) Hypochloremia: (6) Elevated AST (SGOT): (7) Elevated BUN: (8) Abnormal EKG: (9) Intraventricular conduction delay: (10) Elevated d-dimer: Subjective No overnight events, improved alertness of her capacity appears to be lacking, follows simple commands Physical Exam Vital Signs (Past 24 Hours): Last Vital Signs Temp 37 C 12/14/18 04:00 Pulse 70 03/18/19 04:00 Resp 15 12/14/18 04:00 BP 95/55 L 12/14/18 04:00 Pulse Ox 97 12/14/18 04:00 General: Alert. nontoxic. Follows simple commands Skin: Warm, dry, Head: Atraumatic Ears, nose, mouth and throat: airway patent Cardiovascular: Normal peripheral perfusion Respiratory: no respiratory distress Gastrointestinal: Non distended Musculoskeletal: No deformity Results & Data Laboratory Results 12/14/18 12/13/18 12/13/18 Range/Units 04:51 22:19 16:42 Sample Site R Radial POC pH 7.38 (7.35-7.45) POC pCO2 56 H (35-46) mmHg POC pO2 260 H (80-95) mmHg POC HCO3 33 H (19-24) jelly/L POC Total CO2 34 H (24-31) mEq/l POC Base Excess 7.0 H (-9-1.8) jelly/L POC ABG O2 Sat 100.0 H (90-95) % Tahir Test Pass O2 Delivery Device BIPAP POC O2 Rate 16 POC FiO2 60 % IPAP 17 Sodium (136-145) mmol/L Potassium (3.5-5.1) mmol/L Chloride (98-107) mmol/L Carbon Dioxide (21-32) mmol/L Anion Gap (3-11) BUN (7-18) mg/dl Creatinine Pending (0.6-1.4) mg/dl Est Cr Clr Drug Dosing Pending ml/min Est GFR ( Amer) Pending Est GFR (Non-Af Amer) Pending BUN/Creatinine Ratio (10-20) Glucose (70-99) mg/dl POC Glucose 71 (70-99) Calcium (8.5-10.1) mg/dl Phosphorus Pending (2.5-4.9) mg/dl Magnesium (1.8-2.4) mg/dl Total Bilirubin (0.2-1) mg/dl AST (15-37) U/L ALT (12-78) U/L Alkaline Phosphatase (45-117) U/L Total Protein (6.4-8.2) gm/dl Albumin (3.4-5.0) gm/dl Globulin (2.5-4.0) gm/dl Albumin/Globulin Ratio (0.9-2) 12/13/18 12/13/18 12/13/18 Range/Units 16:29 10:25 07:46 Sample Site POC pH (7.35-7.45) POC pCO2 (35-46) mmHg POC pO2 (80-95) mmHg POC HCO3 (19-24) jelly/L POC Total CO2 (24-31) mEq/l POC Base Excess (-9-1.8) jelly/L POC ABG O2 Sat (90-95) % Tahir Test O2 Delivery Device POC O2 Rate POC FiO2 % IPAP Sodium 139 (136-145) mmol/L Potassium 4.4 (3.5-5.1) mmol/L Chloride 101 (98-107) mmol/L Carbon Dioxide 33 H (21-32) mmol/L Anion Gap 5.0 (3-11) BUN 33 H (7-18) mg/dl Creatinine 0.78 (0.6-1.4) mg/dl Est Cr Clr Drug Dosing 88.9 ml/min Est GFR ( Amer) 108.3 Est GFR (Non-Af Amer) 93.4 BUN/Creatinine Ratio 42.9 H (10-20) Glucose 84 (70-99) mg/dl POC Glucose 71 81 (70-99) Calcium 8.0 L (8.5-10.1) mg/dl Phosphorus 4.3 D (2.5-4.9) mg/dl Magnesium 2.4 (1.8-2.4) mg/dl Total Bilirubin 0.3 (0.2-1) mg/dl AST 55 H (15-37) U/L ALT 41 (12-78) U/L Alkaline Phosphatase 56 (45-117) U/L Total Protein 6.1 L (6.4-8.2) gm/dl Albumin 1.7 L (3.4-5.0) gm/dl Globulin 4.4 H (2.5-4.0) gm/dl Albumin/Globulin Ratio 0.4 L (0.9-2) 12/13/18 Range/Units 05:06 Sample Site POC pH (7.35-7.45) POC pCO2 (35-46) mmHg POC pO2 (80-95) mmHg POC HCO3 (19-24) jelly/L POC Total CO2 (24-31) mEq/l POC Base Excess (-9-1.8) jelly/L POC ABG O2 Sat (90-95) % Tahir Test O2 Delivery Device POC O2 Rate POC FiO2 % IPAP Sodium 139 (136-145) mmol/L Potassium 4.4 (3.5-5.1) mmol/L Chloride 101 (98-107) mmol/L Carbon Dioxide 32 (21-32) mmol/L Anion Gap 6.0 (3-11) BUN 36 H (7-18) mg/dl Creatinine 0.84 (0.6-1.4) mg/dl Est Cr Clr Drug Dosing 82.6 ml/min Est GFR ( Amer) 105.0 Est GFR (Non-Af Amer) 90.6 BUN/Creatinine Ratio 42.7 H (10-20) Glucose 95 (70-99) mg/dl POC Glucose (70-99) Calcium 8.4 L (8.5-10.1) mg/dl Phosphorus (2.5-4.9) mg/dl Magnesium (1.8-2.4) mg/dl Total Bilirubin (0.2-1) mg/dl AST (15-37) U/L ALT (12-78) U/L Alkaline Phosphatase (45-117) U/L Total Protein (6.4-8.2) gm/dl Albumin (3.4-5.0) gm/dl Globulin (2.5-4.0) gm/dl Albumin/Globulin Ratio (0.9-2) (1) Altered mental status, unspecified Altered mental status type: coma Coma depth: [place] coma 9-12 Coma timing: unspecified coma timing Qualified Code(s): R40.2420 - [place] coma scale score 9-12, unspecified time
[2018-12-14] MEDS: METOCLOPRAMIDE HCL 10 MG TABLET PO SCH ×3 (05:32→17:04)
[2018-12-14 05:39] LABS: Creatinine Clr Calc Pharmacy 103.5 ml/min; Est GFR (African American) 115.2; Est GFR (Non-African American) 99.4; Phosphorus 3.9 mg/dl (2.5-4.9)
[2018-12-14] MEDS: ACETYLCYSTEINE 10% INHAL SOLN **DISPENSED FROM RESP. INH SCH ×3 (07:26→23:02)
[2018-12-14] MEDS: ALBUT/IPRATROP 3MG/0.5MG NEB 3 ML VIAL NEB SCH ×3 (07:27→23:02)
[2018-12-14] MEDS: LORazepam 1 MG TAB PO SCH (07:42)
[2018-12-14] MEDS: guaiFENesin 200 MG TAB PO SCH ×3 (07:43→20:52)
[2018-12-14] MEDS: DIVALPROEX SODIUM SPRINKLE 125 MG CAP PO SCH ×2 (07:43→20:52)
[2018-12-14] MEDS: LORATADINE 10 MG TAB PEG SCH (07:43)
[2018-12-14] MEDS: SERTRALINE HCL 100 MG TABLET PO SCH (07:44)
--- NOTE | 2018-12-14 07:46 | Hospitalist Progress Note ---
Date of Service December 14, 2018 Assessment & Plan (1) Acute respiratory failure: 68-year-old white male resident [facility] admitted on December 12, 2018 to the hospital acute resporatory failure with hypoxia secondary to aspiration possible aspiration pneumonitis or pneumonia on zosyn INitially with encephalopathy from hypoxia resolved PEG tube feeding for unknown reason history of anxiety, bipolar, BPH, OCD, depression, GERD, (2) Aspiration into airway: Pt has chronic peg feedings, continue enteral nutrition, and aspiration precautions (3) Depression: anxiety, bipolar disorder and OCD, ptis on scheduled risperdal and sertraline (4) On enteral nutrition: (5) BPH (benign prostatic hyperplasia): no clinical issues while continuing proscar and tamsulosin Subjective Patient is lethargic but arouses tries answer questions offers no focal complaints or problems does have some coughing during my evaluation Review of Systems Unobtainable due to cognitive status Physical Exam Vital Signs (Past 24 Hours): Last Vital Signs Temp 37 C 12/14/18 04:00 Pulse 77 12/14/18 06:00 Resp 20 12/14/18 06:00 BP 126/71 12/14/18 06:00 Pulse Ox 95 12/14/18 06:00 The patient appeared well nourished and normally developed. He was slightly lethargic Vital signs as documented. Head exam is unremarkable. normocephalic, atraumatic Neck is without jugular venous distension, thyromegaly, or lymphademopathy Lungs are coarse rhonchi at both bases diminished air movement poor effort Cardiac exam reveals Rhythm is regular. First and second heart sounds normal. Abdominal exam reveals normal bowel sounds, no masses, no organomegaly PEG tube in his left upper abdomen Extremities are mildly edematous and both pedal pulses are present Neurologic exam is A&Ox1, no focal deficits spontaneously moves all extremities Skin is warm Dry without bruises or lesions (1) Acute respiratory failure Respiratory failure complication: unspecified whether with hypoxia or hypercapnia Qualified Code(s): J96.00 - Acute respiratory failure, unspecified whether with hypoxia or hypercapnia (2) Aspiration into airway Encounter type: initial encounter Qualified Code(s): T17.908A - Unspecified foreign body in respiratory tract, part unspecified causing other injury, initial encounter
[2018-12-14 08:24] LABS: Basophils # (auto) 0.03 K/uL (0-0.2); Basophils % (auto) 0.3 %; Eosinophils # (auto) 0.33 K/uL (0-0.5); Eosinophils % (auto) 3.4 %; Hematocrit (blood only) 26.6 % (42-52); Hemoglobin 8.6 g/dL (14.0-18.0); Immature Granulocytes % (auto) 4.2 %; Lymphocytes # (auto) 0.95 K/uL (1.2-3.4); Lymphocytes % (auto) 9.9 %; Mean Corpuscular Hgb Conc 32.3 g/dL (32-36); Mean Corpuscular Volume 97.8 fL (80-100); Mean Platelet Volume 8.9 fL (7.4-10.4); Monocytes # (auto) 1.15 K/uL (0.11-0.59); Monocytes % (auto) 11.9 %; Neutrophils # (auto) 6.77 K/uL (1.4-6.5); Neutrophils % (auto) 70.3 %; Platelet Count 208 K/uL (130-400); RDW Coefficient of Variation 16.3 % (11.5-14.5); RDW Standard Deviation 58.8 fL (36.4-46.3); Red Blood Count 2.72 M/uL (4.7-6.1); White Blood Count 9.63 K/uL (4.8-10.8)
[2018-12-14] MEDS ORDERED: VANCOMYCIN CONSULT ACTIVE PRN ×2 (08:28→08:29)
[2018-12-14] MEDS ORDERED: VANCOMYCIN HCL 1,000 MG in SODIUM CHLORIDE 0.9% 250 ML IV SCH (08:30)
[2018-12-14 08:44] LABS: RBC Morphology Unremarkable
[2018-12-14] MEDS ORDERED: VANCOMYCIN HCL 1,500 MG in SODIUM CHLORIDE 0.9% 500 ML IV ONE (09:00)
[2018-12-14 09:01] LABS: BUN Creatinine Ratio 43.9 (10-20); Calcium 8.6 mg/dl (8.5-10.1); Creatinine Clr Calc Pharmacy 110.1 ml/min; Est GFR (African American) 118.2; Magnesium 2.2 mg/dl (1.8-2.4); Phosphorus 3.4 mg/dl (2.5-4.9); Potassium 3.7 mmol/L (3.5-5.1)
--- NOTE | 2018-12-14 09:41 | Pharmacy Report ---
Pharmacy Abx Dose Short Note - Date of Service December 14, 2018 - Assessment & Plan Assessment * 68 year old M receiving VANCOMYCIN + ZOSYN for treatment for bacteremia + aspiration pneumonia (RN reports suctioning of material from lungs on presentation, pt does receive tube feedings at long-term) * Vanco + Zosyn initiated on 12/12. Vancomycin d/c'd after 12/13 AM dose given. Vancomycin resumed 12/14 AM. * 1 of 2 BLCXs from 12/12 is growing GPC identified as MRSA per PCR testing * Sputum from trach is also growing staph aureus * Nasal swab was positive for MRSA * Renal fxn continues to improve * Oxygenating well on 3-4L NC; MAPs > 65 Plan Vancomycin * Since last dose was given > 24 hrs ago, will load with ~22mg/kg (1750mg x 1) * Maint dose: 1250mg (15.9mg/kg) IV Q 10 hrs * Goal trough level for bacteremia / pulm infxn : 15 to 20 mcg/mL * Trough level ordered for tomorrow AM w/ 2nd maintenance dose given aggressive dosing regimen - will not be reflective of steady-state but will still provide useful information Zosyn * eCrCl > 20cc/min, BMI < 35 however pt with critical illness: cont 4.5gm ext- infusion IV Q 8 hrs Pharmacy will continue to follow and will adjust dose/frequency as necessary. Thank you.
[2018-12-14] MEDS: clonazePAM 1 MG TAB PO SCH ×2 (10:32→21:13)
[2018-12-14] MEDS ORDERED: VANCOMYCIN TROUGH ONE ×2 (11:30→20:00)
[2018-12-14] MEDS ORDERED: PEPTAMEN 1.5 CAL 1,000 ML BAG PEG SCH (14:30)
[2018-12-14] MEDS: ENOXAPARIN INJ 40 MG/0.4 ML SYR SQ SCH (17:03)
[2018-12-14] MEDS: VANCOMYCIN HCL 1,250 MG in SODIUM CHLORIDE 0.9% 250 ML IV SCH (21:11)
[2018-12-14] MEDS: TAMSULOSIN HCL 0.4 MG CAP PEG SCH (21:27)
[2018-12-15] MEDS: PIPERACILLIN/TAZOBACTAM 4.5 GM in DEXTROSE 5% 100 ML IV SCH ×3 (02:00→17:46)
[2018-12-15] MEDS ORDERED: VANCOMYCIN TROUGH ONE (05:30)
[2018-12-15 06:06] LABS: Hematocrit (blood only) 29.4 % (42-52); Hemoglobin 9.4 g/dL (14.0-18.0); Mean Corpuscular Volume 96.1 fL (80-100); Mean Platelet Volume 8.9 fL (7.4-10.4); Platelet Count 208 K/uL (130-400); RDW Standard Deviation 56.3 fL (36.4-46.3); Red Blood Count 3.06 M/uL (4.7-6.1); White Blood Count 7.65 K/uL (4.8-10.8)
[2018-12-15] MEDS: VANCOMYCIN HCL 1,250 MG in SODIUM CHLORIDE 0.9% 250 ML IV SCH ×2 (06:32→15:27)
[2018-12-15 06:33] LABS: Creatinine Clr Calc Pharmacy 144.5 ml/min; Est GFR (African American) 132.2
[2018-12-15 06:54] LABS: Basophils # (auto) 0.03 K/uL (0-0.2); Basophils % (auto) 0.4 %; Eosinophils # (auto) 0.23 K/uL (0-0.5); Immature Granulocytes # (auto) 0.59 K/uL (0.00-0.02); Immature Granulocytes % (auto) 7.7 %; Lymphocytes # (auto) 0.58 K/uL (1.2-3.4); Lymphocytes % (auto) 7.6 %; Monocytes # (auto) 1.11 K/uL (0.11-0.59); Monocytes % (auto) 14.5 %; Neutrophils # (auto) 5.11 K/uL (1.4-6.5); Neutrophils % (auto) 66.8 %; Toxic Granulation 1+
[2018-12-15] MEDS: ALBUT/IPRATROP 3MG/0.5MG NEB 3 ML VIAL NEB SCH ×3 (07:34→23:28)
[2018-12-15] MEDS: ACETYLCYSTEINE 10% INHAL SOLN **DISPENSED FROM RESP. INH SCH ×3 (07:35→23:28)
[2018-12-15] MEDS: guaiFENesin 200 MG TAB PO SCH ×3 (07:41→20:36)
[2018-12-15] MEDS: DIVALPROEX SODIUM SPRINKLE 125 MG CAP PO SCH ×2 (07:43→20:38)
[2018-12-15] MEDS: clonazePAM 1 MG TAB PO SCH ×2 (07:53→20:34)
[2018-12-15] MEDS: SERTRALINE HCL 100 MG TABLET PO SCH (07:54)
[2018-12-15] MEDS: LORATADINE 10 MG TAB PEG SCH (07:54)
[2018-12-15] MEDS: FINASTERIDE 5 MG TAB PO SCH (08:10)
--- NOTE | 2018-12-15 08:28 | Pharmacy Report ---
Pharmacy Abx Dose Short Note - Date of Service December 15, 2018 - Assessment & Plan Assessment 68 year old M receiving vancomycin for treatment of positive blood culture and Zosyn for aspiration pneumonia Day # 01/03 of Zosyn therapy and 11/12 for vancomycin therapy. Plan Vancomycin * Trough level of 13.9 mcg/mL is slightly subtherapeutic HOWEVER this represents a pre-steady state level. Expect this level to increase slightly to goal range. * Continue dose of 1250 mg IV every 10 hours * Goal trough level for bacteremia : 15 to 20 mcg/mL * Trough ordered for: 12/16/18 Pharmacy will continue to follow and will adjust dose/frequency as necessary. Thank you.
[2018-12-15] MEDS: ENOXAPARIN INJ 40 MG/0.4 ML SYR SQ SCH (17:46)
--- NOTE | 2018-12-15 17:54 | Hospitalist Progress Note ---
Date of Service December 15, 2018 Assessment & Plan (1) Acute respiratory failure: 68-year-old white male resident from local assisted [facility] admitted on December 12, 2018 to the hospital acute respiratory failure with hypoxia secondary to aspiration possible aspiration pneumonitis or pneumonia on zosyn INitially with encephalopathy from hypoxia hypoxia resolving encephalopathy persisting PEG tube feeding for unknown reason history of anxiety, bipolar, BPH, OCD, depression, GERD, (2) Aspiration into airway: Pt has chronic peg feedings, continue enteral nutrition, and aspiration precautions will add free water flushes (3) Depression: anxiety, bipolar disorder and OCD, ptis on scheduled risperdal and sertraline his behavior seems controlled and his lethargy is improving (4) On enteral nutrition: (5) BPH (benign prostatic hyperplasia): no clinical issues while continuing proscar and tamsulosin Subjective Patient is more alert than yesterday however he is not making complete sense he says to contact the person a rosa elena regarding his care. His baseline mental state is unclear to us at this time does not continue to improve we will need to engage with the [facility] and try to get a better contacts than what is listed in our chart as a friend Review of Systems Unobtainable due to cognitive status Physical Exam Vital Signs (Past 24 Hours): Last Vital Signs Temp 37.4 C 12/15/18 16:00 Pulse 77 12/15/18 16:00 Resp 20 12/15/18 16:00 BP 141/79 H 12/15/18 16:00 Pulse Ox 92 12/15/18 16:00 The patient appeared chronically ill and lethargic Vital signs as documented. Head exam is unremarkable. normocephalic, atraumatic Neck is without jugular venous distension, thyromegaly, or lymphademopathy Lungs are clear to diminished at the bases due to effort Cardiac exam reveals Rhythm is regular. First and second heart sounds normal. Abdominal exam reveals normal bowel sounds, no masses, no organomegaly PEG tube is in the left side and functioning well Extremities are mildly edematous and both pedal pulses are present Neurologic exam is response to voice tries to communicate, no focal deficits, globally weak (1) Acute respiratory failure Respiratory failure complication: unspecified whether with hypoxia or hypercapnia Qualified Code(s): J96.00 - Acute respiratory failure, unspecified whether with hypoxia or hypercapnia (2) Aspiration into airway Encounter type: initial encounter Qualified Code(s): T17.908A - Unspecified foreign body in respiratory tract, part unspecified causing other injury, initial encounter
[2018-12-15] MEDS: TUBE FEEDING WATER FLUSH GT SCH ×2 (18:33→22:49)
[2018-12-15] MEDS: TAMSULOSIN HCL 0.4 MG CAP PEG SCH (20:36)
[2018-12-16] MEDS: TUBE FEEDING WATER FLUSH GT SCH ×3 (03:00→10:18)
[2018-12-16] MEDS: VANCOMYCIN HCL 1,250 MG in SODIUM CHLORIDE 0.9% 250 ML IV SCH ×2 (03:11→12:36)
[2018-12-16] MEDS: PIPERACILLIN/TAZOBACTAM 4.5 GM in DEXTROSE 5% 100 ML IV SCH ×2 (03:11→10:24)
[2018-12-16] MEDS: ALBUT/IPRATROP 3MG/0.5MG NEB 3 ML VIAL NEB SCH (07:30)
[2018-12-16] MEDS: ACETYLCYSTEINE 10% INHAL SOLN **DISPENSED FROM RESP. INH SCH (07:30)
[2018-12-16] MEDS ORDERED: VALPROIC ACID 750 MG PEG SCH (09:00)
[2018-12-16] MEDS ORDERED: LISINOPRIL 5 MG TAB PO SCH (09:00)
[2018-12-16] MEDS: guaiFENesin 200 MG TAB PO SCH (10:15)
[2018-12-16] MEDS: DIVALPROEX SODIUM SPRINKLE 125 MG CAP PO SCH (10:16)
[2018-12-16] MEDS: SERTRALINE HCL 100 MG TABLET PO SCH (10:16)
[2018-12-16] MEDS: LORATADINE 10 MG TAB PEG SCH (10:16)
[2018-12-16] MEDS: FINASTERIDE 5 MG TAB PO SCH (10:16)
[2018-12-16] MEDS: clonazePAM 1 MG TAB PO SCH (10:24)
[2018-12-16] MEDS ORDERED: VANCOMYCIN TROUGH ONE (11:30)
--- NOTE | 2018-12-16 13:18 | Pharmacy Report ---
Pharmacy Abx Dose Short Note - Date of Service December 16, 2018 - Assessment & Plan Assessment 68 year old M receiving Vancomycin and Zosyn for treatment of aspiration pneumonia Day # 5 of antimicrobial therapy. Plan Laboratory Tests 12/16/18 11:39 Vancomycin Trough 16.9 Vancomycin * Trough level of 16.9 mcg/mL is therapeutic * Continue dose of 1250 mg IV every 10 hours * Goal trough level for pneumonia : 15 to 20 mcg/mL * No additional levels ordered due to patient being discharged per nursing. Pharmacy will continue to follow and will adjust dose/frequency as necessary. Thank you.
--- NOTE | 2018-12-16 17:22 | Discharge Summary ---
Date of Service December 16, 2018 Admission HPI Per Admitting Provider Mr. Nugent is a 68 year old male with a history of Anxiety, Bipolar Disorder, OCD, Depression, GERD, and Tube Feedings -- presented to [facility] ER earlier today with acute respiratory distress. Patient was noted to aspirate a large volume to his airway. He was hypoxic when he arrived at the emergency room. Subsequently underwent suction of approximately 700 cc of his stomach contents from his airways. His initial O2 saturation was 88% on 6 L of oxygen, and then 12 L oxygen. Following suction his oxygen levels improved to 92% on BiPAP -- and are currently up to 95%. Patient was subsequently confused, not ta lking in a coherent manner, he is hypotensive, and has mottled extremities. I am uncertain why he is receiving tube feedings. Apparently is also anticoagulated but we do not know the details. Principal Diagnosis Aspiration pneumonia Metabolic encephalopathy Discharge Exam Patient is mental status shows him to be alert mumbling with occasional clear words. I conferred with the [facility] charge nurse states this is his normal typical state. As long as he is positioned in upright position when he gets his tube feedings this is been helpful in the past. The patient has some rhonchi at the bases with respirations his cardiac status seems to be regular and is soft and nontender PEG site looks to be normal-appearing and his extremities are without edema Discharge Data Allergies Allergy/AdvReac Type Severity Reaction Status Date / Time haloperidol [From Haldol] Allergy Unknown Unknown Unverified 12/12/18 15:14 methylphenidate Allergy Unknown Unknown Unverified 12/12/18 15:14 Consultations 12/12/18 13:59 ED Decision to Admit Stat 12/12/18 16:03 Consult Rubbing Bed Operator Stat 12/12/18 17:20 Consult Health Information Management Routine 12/13/18 15:06 Consult Case Management - Discharge Planning Routine Ordered Studies 12/12/18 17:21 CT angio chest PE protocol Stat 12/12/18 17:22 US venous doppler LE Routine Hospital Course (1) Acute respiratory failure: 68-year-old white male resident from local [facility] admitted on December 12, 2018 to the hospital acute respiratory failure with hypoxia secondary to aspiration aspiration pneumonitis or pneumonia was on zosyn transitioned to augmentin via peg INitially withmetabolic encephalopathy from hypoxia and infection resolved but pt normally is in a limited mental capacity PEG tube feeding for likely aspiration prevention history of anxiety, bipolar, BPH, OCD, depression, GERD, (2) Aspiration into airway: Pt has chronic peg feedings, continue enteral nutrition, and aspiration precautions will add free water flushes (3) Depression: anxiety, bipolar disorder and OCD, ptis on scheduled risperdal and sertra line his behavior seems controlled and his lethargy resoved (4) On enteral nutrition: (5) BPH (benign prostatic hyperplasia): no clinical issues while continuing proscar and tamsulosin Total Time Total Time Spent Total Time Spent (In Minutes): greater than 30 minutes were required to prepare discharge Discharge Plan Discharge Items Patient Disposition: Transfer Nursing Home Fac Reason For Visit: RESPIRATORY DISTRESS Discharge Diagnosis: aspiration pneumonia Discharge Goals: Decrease discomfort Activity: Resume your previous activity Non-emergency contact: Primary Care Provider Call non-emergency contact if: you have any medication questions Follow-up/Referrals: Mary Hill [Primary Care Provider] - Diet: See below Diet Comment: tube feeding , peptamen 1.5 or similar 1000ml a day, flush H20 250ml/shift Addtl Provider Instructions: please have good aspiration precautions PT.ot.Speech re evaluation Prescriptions: New amoxicillin-pot clavulanate [Augmentin] 875-125 mg tablet 1 tab feeding tube BID Qty: 14 RF: 0 Continued ipratropium-albuterol 0.5 mg-3 mg(2.5 mg base)/3 mL Solution For Nebulization 3 ml INHALATION Q8H RF: 0 sertraline 100 mg Tablet 100 mg Feeding Tube QAM RF: 0 guaifenesin 100 mg/5 mL Liquid 100 mg Feeding Tube TID RF: 0 famotidine 20 mg Tablet 20 mg Feeding Tube TID RF: 0 metoclopramide HCl [Reglan] 5 mg Tablet 5 mg Feeding Tube Q6H RF: 0 tamsulosin 0.4 mg Capsule 0.8 mg PO HS RF: 0 valproic acid (as sodium salt) [Depakene] 250 mg/5 mL Solution 750 mg PO BID RF: 0 lorazepam 1 mg Tablet 1 mg Feeding Tube TID RF: 0 fluticasone propionate [Flonase Allergy Relief] 50 mcg/actuation [place],Suspension 1 spray INTRANASAL BID RF: 0 heparin (porcine) 5,000 unit/mL Solution 5,000 unit SUBCUT Q12H RF: 0 finasteride 5 mg Tablet 5 mg Feeding Tube HS RF: 0 loratadine 10 mg Tablet 10 mg Feeding Tube QAM RF: 0 clonazepam 1 mg Tablet,Disintegrating 1 mg Feeding Tube QAM RF: 0 clonazepam 2 mg Tablet,Disintegrating 2 mg Feeding Tube HS RF: 0 risperidone 0.5 mg Tablet,Disintegrating 0.5 mg Feeding Tube Q6H PRN (Reason: americo) RF: 0 acetaminophen 650 mg/20.3 mL Solution 500 mg PO Q6H PRN (Reason: mild pain) RF: 0 Ppd 0.1 ml SC UD RF: 0 Stand-Alone Forms: [facility] Discharge Orders: Discharge Order (Routine); Ordered 12/16/18 Ordered By: Gigi Rouse Skilled Items Patient informed of condition?: Yes DNR: No Discharge Level of Care: Skilled Communicable Disease: No Discharge Prognosis: Stable Admission Data Admit Date/Time: 12/12/18 14:06 Attending Provider: Gigi Rouse Admit Provider: Naldo Manriquez Primary Care Provider: Mary Hill Other Providers: Naldo Manriquez ; Deni Berrios Service: Medical Other Interventions: Discharge Summary Assessment (RN) Last Done: 12/16/18 11:38 DC Date/Time DO NOT enter until pt leaves facility: 12/16/18 14:10
--- NOTE | 2018-12-18 14:06 | Coding Query ---
CODING QUERY To promote full compliance with coding requirements relating to patient care, provider participation is requested in all cases of accounts collector uncertainty. Please assist us with the question(s) below: Coding Question(s): Possible Sepsis was documented in the beginning of the record, but wasn't followed throughout the entire record can you please clarify the diagnosis of Sepsis below. Physician's Response(s): ( ) Sepsis POA ( ) Sepsis Not POA (xx ) Sepsis Ruled out ( ) other: (Please specify) Thank you Mely Archibald Principal Diagnosis: "that condition established after study, to be chiefly responsible for occasioning the admission of the patient to the hospital for care." Co-Existing Principal Diagnosis: "when two or more diagnoses equally meet the criteria for principal diagnosis as determined by the circumstances of admission, diagnostic work up, and/or therapy provided, and the Alphabetic Index, Tabular List, or another coding guideline does not provide sequencing direction, any one of the diagnoses may be sequenced first." "When the physician has documented what appears to be a current diagnosis in the body of the record, but has not included the diagnosis in the final diagnostic statement, the physician should be asked whether the diagnosis should be added." ([facility] 2 QTR90. p3-4) JOSH
== END 2018-12-16 14:10 | DRG 177 ==
LOC: ED 11:14 → 2S 14:06 → SUATTDRO 14:06 → 2S 14:46 → 1E 16:02 → 4W 12-14 19:02

== ENCOUNTER 2018-12-20 13:15 | Inpatient (IN) ==
[2018-12-20] MEDS ORDERED: PIPERACILLIN/TAZOBACTAM 4.5 GM/120 ML BAG IV STA (14:06)
[2018-12-20] MEDS ORDERED: VANCOMYCIN HCL 2,000 MG in SODIUM CHLORIDE 0.9% 500 ML IV STA (14:06)
[2018-12-20] MEDS ORDERED: SODIUM CHLORIDE 0.9% 1000ML 1,000 ML IV STA (14:06)
[2018-12-20] MEDS ORDERED: VANCOMYCIN CONSULT ACTIVE PRN (14:06)
[2018-12-20] MEDS ORDERED: SODIUM CHLORIDE 0.9% 1000ML 2,000 ML IV ONE (14:06)
[2018-12-20] MEDS ORDERED: ALBUT/IPRATROP 3MG/0.5MG NEB 3 ML VIAL NEB STA (14:16)
[2018-12-20 14:31] LABS: iSTAT Hemoglobin 9.9 g/dl (14.0-18.0); iSTAT Ionized Calcium 1.1 mmol/l (1.12-1.32); iSTAT Potassium 4.4 mEq/L (3.3-5.0)
[2018-12-20 14:39] LABS: Hematocrit (blood only) 31.7 % (42-52); Hemoglobin 10.5 g/dL (14.0-18.0); Mean Corpuscular Hgb Conc 33.1 g/dL (32-36); Mean Corpuscular Volume 96.4 fL (80-100); Platelet Count 243 K/uL (130-400); RDW Coefficient of Variation 16.9 % (11.5-14.5); Red Blood Count 3.29 M/uL (4.7-6.1); White Blood Count 32.26 K/uL (4.8-10.8)
--- NOTE | 2018-12-20 14:40 | XRay Report ---
XR chest 1V portable CLINICAL HISTORY: hypoxia COMPARISON STUDY: Chest radiograph and chest CT December 12, 2018. FINDINGS: Patient is rotated. There is no pneumothorax. Cardiomegaly is unchanged. Extensive bilatera l airspace opacities have progressed since prior exam. There is interstitial thickening. There are ar e suspected trace bilateral pleural effusions. IMPRESSION: Progression of bilateral airspace opacities with interstitial thickening. The findings s uggest worsening pneumonia. Superimposed mild pulmonary edema may be present. Radiographic follow-up to ensure resolution is recommended. Electronically signed by: Rahul Duffy M.D. 12/20/2018 2:38 PM
[2018-12-20 14:45] LABS: Alanine Aminotransferase 30 U/L (12-78); Albumin Level 1.7 gm/dl (3.4-5.0); Aspartate Aminotransferase 37 U/L (15-37); BUN Creatinine Ratio 41.7 (10-20); Blood Urea Nitrogen 37 mg/dl (7-18); Calcium 8.2 mg/dl (8.5-10.1); Carbon Dioxide 30 mmol/L (21-32); Chloride 102 mmol/L (98-107); Est GFR (African American) 102.5; Est GFR (Non-African American) 88.5; Glucose 131 mg/dl (70-99); Potassium 4.3 mmol/L (3.5-5.1); Sodium 138 mmol/L (136-145)
[2018-12-20 14:50] LABS: Albumin Globulin Ratio 0.3 (0.9-2); Alkaline Phosphatase 60 U/L (45-117); Basophils # (auto) 0.05 K/uL (0-0.2); Basophils % (auto) 0.2 %; Bilirubin,Total 0.4 mg/dl (0.2-1); Globulin 5.1 gm/dl (2.5-4.0); Immature Granulocytes # (auto) 0.31 K/uL (0.00-0.02); Lymphocytes # (auto) 0.72 K/uL (1.2-3.4); Lymphocytes % (auto) 2.2 %; Monocytes # (auto) 2.33 K/uL (0.11-0.59); Monocytes % (auto) 7.2 %; Neutrophils # (auto) 28.85 K/uL (1.4-6.5); Neutrophils % (auto) 89.4 %; Rouleaux 1+; Total Protein 6.8 gm/dl (6.4-8.2); Toxic Granulation 1+; Toxic Vacuolation 1+; Troponin I 0.023 ng/ml (0-0.045)
[2018-12-20 15:01] LABS: Appearance Urine Cloudy (Clear); Bacteria Urine Automated Negative (Negative); Blood Urine 1+ (Negative); Color Urine Dark Yellow; Epithelial Cell Urine Auto >30 /lpf (0-5); Glucose Urine UA Negative (Negative); Ketones Urine Trace (Negative); Leukocyte Esterase Urine 1+ (Negative); Nitrite Urine Negative (Negative); Protein Urine Negative (Negative); Specific Gravity Urine 1.028 (1.000-1.030); Urobilinogen Urine Negative (Negative)
[2018-12-20 15:19] LABS: Bilirubin Urine Negative (Negative); Ictotest Urine Negative (Negative)
[2018-12-20] MEDS ORDERED: ACETAMINOPHEN 1000 MG/100 ML IV IV ONE (15:27)
[2018-12-20] MEDS ORDERED: ACETAMINOPHEN 1,000 MG/100 ML VIAL IV STA (15:37)
--- NOTE | 2018-12-20 15:45 | History & Physical Report ---
Date of Service December 20, 2018 Assessment & Plan (1) Sepsis: Patient likely is septic from a pulmonary source from MRSA pneumonia, patient's white count was 32,000 we will continue to evaluate his C. difficile status if he produces diarrhea (2) Acute hypoxemic respiratory failure: Patient is acute of acute respiratory failure from likely MRSA pneumonia superimposed on baseline history of COPD, he is on vancomycin and Zosyn pending sputum cultures likely will need to be continued on a MRSA specific drug considering the nasal it is a can be converted to oral medication (3) Altered mental status, unspecified: Metabolic encephalopathy from pneumonia plus hypoxemia of fluid will be improved with replacing his oxygen and treating his infection (4) Chronic pulmonary aspiration: Patient is unable to produce with deep provide us with details of his need for his PEG tube. He subsequently usually takes Peptamen 1500 mL overnight with free water flushes added. Is currently on hold due to his significant illness (5) Depression: Patient has significant depression with outbursts at times his clonazepam is currently being held due to his obtunded mental state but likely will need to be restarted given possibility of withdrawal continuing as needed Risperdal for outburst and sertraline 100 via feeding tube There is some discussion about the patient being on valproic acid this is currently held at this time (6) BPH (benign prostatic hyperplasia): Previously the patient was on tamsulosin this will be continued (7) DVT prophylaxis: Patient is on heparin DVT prevention even at the [facility] History of Present Illness Primary Care Provider: [place] 68-year-old male is chronically dependent on PEG tube feedings for aspiration his admission to our facility with acute respiratory failure with hypoxia with apparent worsening of pneumonic infiltrate escalation white blood cell count with criteria for sepsis. Patient presented with a similar incidence of respiratory distress on 12 December. At that point time he was on Vanco and Zosyn. Zosyn was chosen as the de-escalation of antibiotics was undertaken in the ICU. The patient had progressed clinically well throughout the remainder of his hospital stay and was discharged back to the senior living the . His white blood cell count did come up slightly during that time he had had no fevers his mentation was improved and he was still having just a mild cough. He presents in marked respiratory distress with low blood pressure tachypnea hypoxia with worsening chest infiltrates requiring BiPAP to preserve his ventilation Allergies Allergy/AdvReac Type Severity Reaction Status Date / Time haloperidol [From Haldol] Allergy Unknown Unknown Unverified 12/12/18 15:14 methylphenidate Allergy Unknown Unknown Unverified 12/12/18 15:14 Home Medications Home Medications Medication Instructions Recorded Confirmed Type acetaminophen 500 mg PO Q6H PRN 12/12/18 12/20/18 History clonazepam 1 mg FEEDING TUBE QAM 12/12/18 12/20/18 History clonazepam 2 mg FEEDING TUBE HS 12/12/18 12/20/18 History famotidine 20 mg FEEDING TUBE TID 12/12/18 12/20/18 History finasteride 5 mg FEEDING TUBE HS 12/12/18 12/20/18 History fluticasone propionate [Flonase 1 spray INTRANASAL BID 12/12/18 12/20/18 History Allergy Relief] guaifenesin 100 mg FEEDING TUBE TID 12/12/18 12/20/18 History heparin (porcine) 5,000 unit SUBCUT Q12H 12/12/18 12/20/18 History ipratropium-albuterol 3 ml INHALATION Q8H 12/12/18 12/20/18 History loratadine 10 mg FEEDING TUBE QAM 12/12/18 12/20/18 History lorazepam 1 mg FEEDING TUBE TID 12/12/18 12/20/18 History metoclopramide HCl [Reglan] 5 mg FEEDING TUBE Q6H 12/12/18 12/20/18 History risperidone 0.5 mg FEEDING TUBE Q6H PRN 12/12/18 12/20/18 History sertraline 100 mg FEEDING TUBE QAM 12/12/18 12/20/18 History tamsulosin 0.8 mg PO HS 12/12/18 12/20/18 History valproic acid (as sodium salt) 750 mg PO BID 12/12/18 12/20/18 History [Depakene] amoxicillin-pot clavulanate 1 tab FEEDING TUBE BID #14 tab 12/16/18 12/20/18 Rx [Augmentin] Past Med/Surg History Social History Preferred Language: Stateless Communication Ability: Impaired Beliefs That Will Affect Care: None marital status: Single Current Living Situation: [facility] current occupational status: retired Other Information That Helps Us Care for You: No Feels Safe at Home: Yes Smoking Status: Unknown if ever smoked Review of Systems Unobtainable due to cognitive status Physical Exam Vital Signs (Past 24 Hours): Last Vital Signs Temp 39 C H 12/20/18 15:00 Pulse 97 H 12/20/18 15:05 Resp 32 H 12/20/18 15:05 BP 88/70 L 12/20/18 13:15 Pulse Ox 98 12/20/18 15:05 The patient appeared markedly ill minimally responsive Vital signs as documented. Lower blood pressure Head exam is unremarkable. normocephalic, atraumatic Neck is without jugular venous distension, thyromegaly, or lymphademopathy Lungs are coarse at bases diminished throughout Cardiac exam reveals tachycardic at times. First and second heart sounds normal. Abdominal exam reveals hypoactive bowel sounds, no masses, no organomegaly Extremities are nonedematous and both pedal pulses are present Neurologic exam is obtunded, no focal deficits, strength is equal bilateral Skin is warm Dry without bruises or lesions (1) Altered mental status, unspecified Altered mental status type: coma Coma depth: [place] coma 9-12 Coma timing: unspecified coma timing Qualified Code(s): R40.2420 - Sofi coma scale score 9-12, unspecified time
[2018-12-20 15:58] LABS: Mucus Urine Present (None Prsent)
[2018-12-20] MEDS ORDERED: SODIUM CHLORIDE 0.9% 1000ML 1,000 ML IV SCH (17:20)
[2018-12-20] MEDS ORDERED: ONDANSETRON INJ 2 MG/ML 2 ML VIAL IV PRN (17:20)
[2018-12-20] MEDS ORDERED: PIPERACILL/TAZOBAC CONSULT ACTIVE PRN (17:20)
[2018-12-20] MEDS ORDERED: risperiDONE ODT 0.5 MG SOLTAB PO PRN (17:20)
[2018-12-20] MEDS: METOCLOPRAMIDE HCL 5 MG TABLET PO SCH ×2 (19:18→23:36)
[2018-12-20] MEDS: PIPERACILLIN/TAZOBACTAM 3.375 GM in DEXTROSE 5% 100 ML IV SCH (19:18)
[2018-12-20] MEDS: ALBUT/IPRATROP 3MG/0.5MG NEB 3 ML VIAL INH SCH ×3 (20:15→23:55)
[2018-12-20] MEDS: HEPARIN SOD 5,000 UNIT/0.5 ML VIAL SQ SCH (20:43)
[2018-12-20] MEDS: DIVALPROEX SODIUM SPRINKLE 125 MG CAP PEG SCH (20:44)
[2018-12-20] MEDS: TAMSULOSIN HCL 0.4 MG CAP PO SCH (20:44)
[2018-12-20] MEDS: FAMOTIDINE 20 MG TAB JT SCH (20:44)
--- NOTE | 2018-12-20 21:25 | Pharmacy Report ---
Pharmacy Abx Initial Consult - Date of Service December 20, 2018 - Pharmacy Dosing Scope Date of Consult: 12/20/18 Consultation requested by: Dr. Sanches Pharmacy is consulted to initiate vancomycin/ Zosyn IV dosing therapy, order appropriate labs and adjust drug dose/frequency. - Subjective The patient is a 68 year old M admitted on 12/20/18 15:09 with possible MRSA pneumonia/ aspiration pneumonia. - Objective Height: 5 ft 8 in Weight: 79.2 kg Vital Signs (Past 12hrs): Vital Signs Temp Pulse Pulse Resp BP BP Pulse Ox 12/20/18 20:15 75 20 99 12/20/18 19:13 36 C L 73 20 102/67 100 12/20/18 17:20 86 12/20/18 17:01 37.1 C 82 19 99/61 L 97 12/20/18 16:11 86 23 95/54 L 98 12/20/18 16:10 87 23 99 12/20/18 16:06 87 24 90/54 L 100 12/20/18 16:01 85 25 H 100/58 L 100 12/20/18 16:00 86 25 H 100 12/20/18 15:56 85 25 H 99/56 L 100 12/20/18 15:51 86 26 H 102/51 L 100 12/20/18 15:50 85 26 H 100 12/20/18 15:45 87 23 96/57 L 100 12/20/18 15:41 88 26 H 88/53 L 100 12/20/18 15:40 87 26 H 100 12/20/18 15:36 91 H 25 H 88/57 L 100 12/20/18 15:31 94 H 27 H 85/58 L 97 12/20/18 15:30 97 H 29 H 96 12/20/18 15:26 95 H 27 H 87/56 L 96 12/20/18 15:21 94 H 29 H 84/54 L 97 12/20/18 15:20 99 H 30 H 97 12/20/18 15:16 100 H 30 H 77/50 L 98 12/20/18 15:11 98 H 28 H 74/51 L 97 12/20/18 15:10 99 H 28 H 98 12/20/18 15:06 97 H 31 H 80/52 L 98 12/20/18 15:05 97 H 32 H 98 12/20/18 15:01 109 H 43 H 94/52 L 98 12/20/18 15:00 39 C H 108 H 41 H 98 12/20/18 14:56 110 H 37 H 99/60 L 97 12/20/18 14:51 110 H 34 H 92/59 L 97 12/20/18 14:50 110 H 28 H 96 12/20/18 14:46 102 H 41 H 101/58 L 96 12/20/18 14:41 106 H 37 H 77/54 L 94 12/20/18 14:40 108 H 25 H 92 12/20/18 14:36 111 H 34 H 78/64 L 96 12/20/18 14:31 109 H 28 H 98/70 L 96 12/20/18 14:30 109 H 36 H 96 12/20/18 14:26 107 H 41 H 103/69 94 12/20/18 14:22 109 H 32 H 93 12/20/18 14:21 112 H 37 H 92/60 L 88 L 12/20/18 14:20 112 H 31 H 87 L 12/20/18 14:16 115 H 49 H 118/74 89 L 12/20/18 14:15 114 H 47 H 108/68 91 12/20/18 14:10 114 H 39 H 88 L 12/20/18 14:06 112 H 34 H 98/66 L 89 L 12/20/18 14:01 109 H 35 H 94/59 L 86 L 12/20/18 14:00 106 H 28 H 87 L 12/20/18 13:56 112 H 30 H 88/70 L 87 L 12/20/18 13:51 112 H 46 H 92/57 L 89 L 12/20/18 13:50 114 H 44 H 88 L 12/20/18 13:46 109 H 44 H 99/69 L 88 L 12/20/18 13:41 108 H 40 H 85/56 L 88 L 12/20/18 13:40 102 H 40 H 85 L 12/20/18 13:36 105 H 45 H 86/60 L 86 L 12/20/18 13:33 106 H 45 H 103/60 86 L 12/20/18 13:30 108 H 60 H 86 L 12/20/18 13:15 36.5 C 112 H 28 H 88/70 L 86 L Lab Results (24hrs): Laboratory Tests (24 Hours) 12/20/18 12/20/18 14:12 14:12 WBC 32.26 H* Neut # (Auto) 28.85 H Creatinine 0.89 Est Cr Clr Drug Dosing Not Reportable Micro Results: 12/20/18 14:15 Urine Culture - Pending Urine,Straight Cath 12/20/18 14:39 Gram Stain - Pending Sputum, Expectorated Sputum Culture - Pending 12/20/18 14:35 Blood Culture - Pending Blood 12/20/18 14:12 Blood Culture - Pending Blood - Risk Factors for Resistance * Resident in a long-term or extended-care facility * Hospitalization for 48 hours or more within the past 90 days * History of infection with a multidrug-resistant organism: MRSA in blood and sputum 11/2018 * Antimicrobial use within the last 90 days including Augmentin, Zosyn, and vancomycin - Assessment & Plan Assessment 68 year old M admitted with possible MRSA pneumonia Plan vancomycin/Zosyn for treatment of pneumonia Vancomycin IV * Estimated PK Parameters: patient specific kinetics suggest that vancomycin 1250 mg IV q10 hours produces trough of 16.9 mcg/mL. * Loading dose: 2000 mg (25.5 mg/kg) * Maintenance dose: 1250 mg IV (15.9 mg/kg) every 10 hours * Goal trough level for pulmonary infection : 15 to 20 mcg/mL * Not ordered currently Piperacillin/tazobactam * 4.5 g bolus administered over 30 minutes, then 3.375 g IV extended infusion every 8 hours for CrCl greater than 20 mL/min Pharmacy will continue to follow and will adjust dose/frequency as necessary. Thank you.
--- NOTE | 2018-12-20 22:17 | Emergency Department Note ---
Entered by Justino Long acting as a scribe for ED Provider Note CHIEF COMPLAINT: Respiratory Issues HISTORY OF PRESENT ILLNESS: The patient is a 68 year old male that presents to the ED via EMS with constant respiratory distress that started today. The patient is non verbal and confused at baseline, only being able to communicate through moaning, per EMS. EMS states that en route they put him on a non-rebreather and gave him a duoneb. The patient was recently discharged 2 days ago after being hospitalized for pneumonia and aspirations. HPI is limited secondary to altered mental status. Pt denies LOC, headache, fevers, chills, diaphoresis, visual changes, neck pain, chest pain, nausea, vomiting, abdominal pain, back pain, melena, hematochezia, urinary symptoms, numbness, weakness, lymphadenopathy, rash, or other complaints. REVIEW OF SYSTEMS: See HPI for pertinent positives and negatives. Limited secondary to mental status. PMHx/PSHx: GERD, BPH, Depression, Acute respiratory failure, Anxiety, Bipolar SOCIAL HISTORY: Patient lives at [facility]. PHYSICAL EXAM: GENERAL: Lethargic with mumbling speech, semi coherent. HENT: Normocephalic, atraumatic. Oropharynx unremarkable. EYES: Normal conjunctiva. Sclera non-icteric. NECK: Inspection normal. Non-tender. Supple. No nuchal rigidity. FROM. No masses. RESPIRATORY: Crackles bilaterally with rhonchi and decreased air movement in bilateral bases, especially the left. No wheezes. No rales. Normal respiratory effort. CARDIAC: Tachycardic rate. Normal rhythm. No murmurs. No rubs. Extremities warm and well perfused. Pulses equal. No JVD. GI: PEG tube in place, soft, non-distended. No tenderness to palpation. No rebound or guarding. No masses. RECTAL: Deferred. MUSCULOSKELETAL: Atraumatic. Chest examination reveals no tenderness. The back is symmetrical on inspection without obvious abnormality. There is no CVA tenderness to palpation. No joint edema. LOWER EXTREMITIES: Calves are equal size bilaterally and non-tender. No edema. No discoloration. NEURO: Semi coherent with mumbling speech. Moving upper extremities and not following commands. SKIN: No rash or jaundice noted. EMERGENCY DEPARTMENT COURSE: 1402: Past medical records reviewed. The patient was evaluated in room A04A, and a complete history and physical examination were performed. 1430: I reevaluated the patient and he is doing better on BiPAP. His blood pressure has improved with fluids and his pulse ox is up to 95%. The hospitalist is being paged. 1438: I spoke to Dr. Lamb - [facility] Hospitalist about the patient's case and he is going to accept him for further evaluation. 1526: I checked on the patient and he is getting a second liter bolus since his blood pressure is mildly low. 1530: I spoke to Dr. Rouse - [facility] Hospitalist who is going to evaluate the patient as well. MEDICAL DECISION MAKING: Prior records/ancillary studies reviewed. The patient was recently treated and admitted for aspiration pneumonia. Respiratory failure. Nursing notes reviewed and agree them. Additional history obtained from nursing. The patient's history was concerning for weakness. Differential diagnosis: Etiologies such as metabolic, infection, hypo/hyperglycemia, electrolyte abnormalities, cardiac sources, intracerebral event, toxicologic, neurologic, as well as others were entertained. Physical examination: As above. ER treatment provided: IV Lock x2 Monitoring Nonrebreather Normal saline resuscitation BiPAP IV Zosyn IV vancomycin On reassessment the patient is doing marginally better. Diagnostics interpretation by me: ECG: No acute ischemia The labs revealed a market leukocytosis of 32,000. Patient has an unremarkable chemistry panel. Mild anemia noted. Imaging studies: X-ray imaging is concerning for worsening pneumonia. The patient's constellation of findings are concerning for sepsis. Consultation: A consultation was placed with the hospitalist. The case was discussed and diagnostics were reviewed. The patient was evaluated in the ER for further treatment. Critical Care: I have personally spent greater than 40 minutes of critical care time in the direct management of this patient. This includes bedside care, interpretation of diagnostic studies, and testing, discussion with consultants, patient, and family members, and other required patient management activities. This 40 minutes is in excess of all separately billable procedures. IMPRESSION: Sepsis, Respiratory failure, Pneumonia PLAN: Admitted The scribe's documentation has been prepared under my direction and personally reviewed by me in its entirety. I confirm that the note above accurately reflects all work, treatment, procedures, and medical decision making performed by me. Impression & Plan Sepsis, Respiratory failure, Pneumonia Past Med/Surg History Social History Preferred Language: Faroese Communication Ability: Impaired Beliefs That Will Affect Care: None marital status: Single Current Living Situation: [facility] current occupational status: retired Other Information That Helps Us Care for You: No Feels Safe at Home: Yes Smoking Status: Unknown if ever smoked Results & Data Vital Signs Vital Signs - 24 hr 12/20/18 13:15 12/20/18 13:30 12/20/18 13:33 Temperature 36.5 C Temperature Source Oral Sepsis Recent Fever Within 48 Hours No Sepsis New/Unexplained Change in Mental Status No Sepsis Action Taken by Nursing No Action Required Pulse Rate 112 H 108 H 106 H Pulse Rate [Right Finger] Pulse Rate from SpO2 Sensor 108 H 106 H Pulse Rhythm Irregular Pulse Rhythm [Right Finger] Pulse Strength Normal Pulse Strength [Right Finger] Respiratory Rate 28 H 60 H 45 H Respiratory Effort / Characteristics Labored Respiratory Depth Shallow Respiratory Pattern Tachypnea Blood Pressure 88/70 L 103/60 Blood Pressure [Right Arm] Blood Pressure Mean 76 74 Blood Pressure Mean [Right Arm] Blood Pressure Position Lying Blood Pressure Position [Right Arm] Pulse Oximetry 86 L 86 L 86 L Oxygen Delivery Method Oxymask Non-rebreather Oxygen Flow Rate 15 Fraction of Inspired Oxygen SaO2/FiO2 Ratio 12/20/18 13:36 12/20/18 13:40 12/20/18 13:41 Temperature Temperature Source Sepsis Recent Fever Within 48 Hours Sepsis New/Unexplained Change in Mental Status Sepsis Action Taken by Nursing Pulse Rate 105 H 102 H 108 H Pulse Rate [Right Finger] Pulse Rate from SpO2 Sensor 105 H 102 H 108 H Pulse Rhythm Pulse Rhythm [Right Finger] Pulse Strength Pulse Strength [Right Finger] Respiratory Rate 45 H 40 H 40 H Respiratory Effort / Characteristics Respiratory Depth Respiratory Pattern Blood Pressure 86/60 L 85/56 L Blood Pressure [Right Arm] Blood Pressure Mean 68 65 Blood Pressure Mean [Right Arm] Blood Pressure Position Blood Pressure Position [Right Arm] Pulse Oximetry 86 L 85 L 88 L Oxygen Delivery Method Oxygen Flow Rate Fraction of Inspired Oxygen SaO2/FiO2 Ratio 12/20/18 13:46 12/20/18 13:50 12/20/18 13:51 Temperature Temperature Source Sepsis Recent Fever Within 48 Hours Sepsis New/Unexplained Change in Mental Status Sepsis Action Taken by Nursing Pulse Rate 109 H 114 H 112 H Pulse Rate [Right Finger] Pulse Rate from SpO2 Sensor 110 H 113 H 112 H Pulse Rhythm Pulse Rhythm [Right Finger] Pulse Strength Pulse Strength [Right Finger] Respiratory Rate 44 H 44 H 46 H Respiratory Effort / Characteristics Respiratory Depth Respiratory Pattern Blood Pressure 99/69 L 92/57 L Blood Pressure [Right Arm] Blood Pressure Mean 79 68 Blood Pressure Mean [Right Arm] Blood Pressure Position Blood Pressure Position [Right Arm] Pulse Oximetry 88 L 88 L 89 L Oxygen Delivery Method Oxygen Flow Rate Fraction of Inspired Oxygen SaO2/FiO2 Ratio 12/20/18 13:56 12/20/18 14:00 12/20/18 14:01 Temperature Temperature Source Sepsis Recent Fever Within 48 Hours Sepsis New/Unexplained Change in Mental Status Sepsis Action Taken by Nursing Pulse Rate 112 H 106 H 109 H Pulse Rate [Right Finger] Pulse Rate from SpO2 Sensor 113 H 108 H 109 H Pulse Rhythm Pulse Rhythm [Right Finger] Pulse Strength Pulse Strength [Right Finger] Respiratory Rate 30 H 28 H 35 H Respiratory Effort / Characteristics Respiratory Depth Respiratory Pattern Blood Pressure 88/70 L 94/59 L Blood Pressure [Right Arm] Blood Pressure Mean 76 70 Blood Pressure Mean [Right Arm] Blood Pressure Position Blood Pressure Position [Right Arm] Pulse Oximetry 87 L 87 L 86 L Oxygen Delivery Method Oxygen Flow Rate Fraction of Inspired Oxygen SaO2/FiO2 Ratio 12/20/18 14:06 12/20/18 14:10 12/20/18 14:15 Temperature Temperature Source Sepsis Recent Fever Within 48 Hours Sepsis New/Unexplained Change in Mental Status Sepsis Action Taken by Nursing Pulse Rate 112 H 114 H 114 H Pulse Rate [Right Finger] Pulse Rate from SpO2 Sensor 114 H 114 H 115 H Pulse Rhythm Pulse Rhythm [Right Finger] Pulse Strength Pulse Strength [Right Finger] Respiratory Rate 34 H 39 H 47 H Respiratory Effort / Characteristics Respiratory Depth Respiratory Pattern Blood Pressure 98/66 L 108/68 Blood Pressure [Right Arm] Blood Pressure Mean 76 81 Blood Pressure Mean [Right Arm] Blood Pressure Position Blood Pressure Position [Right Arm] Pulse Oximetry 89 L 88 L 91 Oxygen Delivery Method Oxygen Flow Rate Fraction of Inspired Oxygen SaO2/FiO2 Ratio 12/20/18 14:16 12/20/18 14:20 12/20/18 14:21 Temperature Temperature Source Sepsis Recent Fever Within 48 Hours Sepsis New/Unexplained Change in Mental Status Sepsis Action Taken by Nursing Pulse Rate 115 H 112 H 112 H Pulse Rate [Right Finger] Pulse Rate from SpO2 Sensor 115 H 111 H 112 H Pulse Rhythm Pulse Rhythm [Right Finger] Pulse Strength Pulse Strength [Right Finger] Respiratory Rate 49 H 31 H 37 H Respiratory Effort / Characteristics Respiratory Depth Respiratory Pattern Blood Pressure 118/74 92/60 L Blood Pressure [Right Arm] Blood Pressure Mean 88 70 Blood Pressure Mean [Right Arm] Blood Pressure Position Blood Pressure Position [Right Arm] Pulse Oximetry 89 L 87 L 88 L Oxygen Delivery Method Oxygen Flow Rate Fraction of Inspired Oxygen SaO2/FiO2 Ratio 12/20/18 14:22 12/20/18 14:26 12/20/18 14:30 Temperature Temperature Source Sepsis Recent Fever Within 48 Hours Sepsis New/Unexplained Change in Mental Status Sepsis Action Taken by Nursing Pulse Rate 109 H 107 H 109 H Pulse Rate [Right Finger] Pulse Rate from SpO2 Sensor 108 H 109 H Pulse Rhythm Pulse Rhythm [Right Finger] Pulse Strength Pulse Strength [Right Finger] Respiratory Rate 32 H 41 H 36 H Respiratory Effort / Characteristics Respiratory Depth Respiratory Pattern Blood Pressure 103/69 Blood Pressure [Right Arm] Blood Pressure Mean 80 Blood Pressure Mean [Right Arm] Blood Pressure Position Blood Pressure Position [Right Arm] Pulse Oximetry 93 94 96 Oxygen Delivery Method Oxygen Flow Rate Fraction of Inspired Oxygen 100 SaO2/FiO2 Ratio 12/20/18 14:31 12/20/18 14:36 12/20/18 14:40 Temperature Temperature Source Sepsis Recent Fever Within 48 Hours Sepsis New/Unexplained Change in Mental Status Sepsis Action Taken by Nursing Pulse Rate 109 H 111 H 108 H Pulse Rate [Right Finger] Pulse Rate from SpO2 Sensor 110 H 111 H 108 H Pulse Rhythm Pulse Rhythm [Right Finger] Pulse Strength Pulse Strength [Right Finger] Respiratory Rate 28 H 34 H 25 H Respiratory Effort / Characteristics Respiratory Depth Respiratory Pattern Blood Pressure 98/70 L 78/64 L Blood Pressure [Right Arm] Blood Pressure Mean 79 68 Blood Pressure Mean [Right Arm] Blood Pressure Position Blood Pressure Position [Right Arm] Pulse Oximetry 96 96 92 Oxygen Delivery Method Oxygen Flow Rate Fraction of Inspired Oxygen SaO2/FiO2 Ratio 12/20/18 14:41 12/20/18 14:46 12/20/18 14:50 Temperature Temperature Source Sepsis Recent Fever Within 48 Hours Sepsis New/Unexplained Change in Mental Status Sepsis Action Taken by Nursing Pulse Rate 106 H 102 H 110 H Pulse Rate [Right Finger] Pulse Rate from SpO2 Sensor 105 H 101 H 110 H Pulse Rhythm Pulse Rhythm [Right Finger] Pulse Strength Pulse Strength [Right Finger] Respiratory Rate 37 H 41 H 28 H Respiratory Effort / Characteristics Respiratory Depth Respiratory Pattern Blood Pressure 77/54 L 101/58 L Blood Pressure [Right Arm] Blood Pressure Mean 61 72 Blood Pressure Mean [Right Arm] Blood Pressure Position Blood Pressure Position [Right Arm] Pulse Oximetry 94 96 96 Oxygen Delivery Method Oxygen Flow Rate Fraction of Inspired Oxygen SaO2/FiO2 Ratio 12/20/18 14:51 12/20/18 14:56 12/20/18 15:00 Temperature 39 C H Temperature Source Rectal Sepsis Recent Fever Within 48 Hours Sepsis New/Unexplained Change in Mental Status Sepsis Action Taken by Nursing Pulse Rate 110 H 110 H 108 H Pulse Rate [Right Finger] Pulse Rate from SpO2 Sensor 110 H 109 H 108 H Pulse Rhythm Pulse Rhythm [Right Finger] Pulse Strength Pulse Strength [Right Finger] Respiratory Rate 34 H 37 H 41 H Respiratory Effort / Characteristics Respiratory Depth Respiratory Pattern Blood Pressure 92/59 L 99/60 L Blood Pressure [Right Arm] Blood Pressure Mean 70 73 Blood Pressure Mean [Right Arm] Blood Pressure Position Blood Pressure Position [Right Arm] Pulse Oximetry 97 97 98 Oxygen Delivery Method Oxygen Flow Rate Fraction of Inspired Oxygen SaO2/FiO2 Ratio 12/20/18 15:01 12/20/18 15:05 12/20/18 15:06 Temperature Temperature Source Sepsis Recent Fever Within 48 Hours Sepsis New/Unexplained Change in Mental Status Sepsis Action Taken by Nursing Pulse Rate 109 H 97 H Pulse Rate [Right Finger] 97 H Pulse Rate from SpO2 Sensor 108 H 97 H Pulse Rhythm Pulse Rhythm [Right Finger] Pulse Strength Pulse Strength [Right Finger] Respiratory Rate 43 H 32 H 31 H Respiratory Effort / Characteristics Spontaneous Respiratory Depth Respiratory Pattern Blood Pressure 94/52 L 80/52 L Blood Pressure [Right Arm] Blood Pressure Mean 66 61 Blood Pressure Mean [Right Arm] Blood Pressure Position Blood Pressure Position [Right Arm] Pulse Oximetry 98 98 98 Oxygen Delivery Method BiPAP Oxygen Flow Rate Fraction of Inspired Oxygen 80 SaO2/FiO2 Ratio 12/20/18 15:08 12/20/18 15:10 12/20/18 15:11 Temperature Temperature Source Sepsis Recent Fever Within 48 Hours Sepsis New/Unexplained Change in Mental Status Sepsis Action Taken by Nursing Pulse Rate 99 H 98 H Pulse Rate [Right Finger] Pulse Rate from SpO2 Sensor 99 H 99 H Pulse Rhythm Pulse Rhythm [Right Finger] Pulse Strength Pulse Strength [Right Finger] Respiratory Rate 28 H 28 H Respiratory Effort / Characteristics Retracting Short of Breath Respiratory Depth Deep Respiratory Pattern Tachypnea Blood Pressure 74/51 L Blood Pressure [Right Arm] Blood Pressure Mean 58 Blood Pressure Mean [Right Arm] Blood Pressure Position Blood Pressure Position [Right Arm] Pulse Oximetry 98 97 Oxygen Delivery Method BiPAP Oxygen Flow Rate Fraction of Inspired Oxygen 80 SaO2/FiO2 Ratio 12/20/18 15:16 12/20/18 15:20 12/20/18 15:21 Temperature Temperature Source Sepsis Recent Fever Within 48 Hours Sepsis New/Unexplained Change in Mental Status Sepsis Action Taken by Nursing Pulse Rate 100 H 99 H 94 H Pulse Rate [Right Finger] Pulse Rate from SpO2 Sensor 100 H 98 H 94 H Pulse Rhythm Pulse Rhythm [Right Finger] Pulse Strength Pulse Strength [Right Finger] Respiratory Rate 30 H 30 H 29 H Respiratory Effort / Characteristics Respiratory Depth Respiratory Pattern Blood Pressure 77/50 L 84/54 L Blood Pressure [Right Arm] Blood Pressure Mean 59 64 Blood Pressure Mean [Right Arm] Blood Pressure Position Blood Pressure Position [Right Arm] Pulse Oximetry 98 97 97 Oxygen Delivery Method Oxygen Flow Rate Fraction of Inspired Oxygen SaO2/FiO2 Ratio 12/20/18 15:26 12/20/18 15:30 12/20/18 15:31 Temperature Temperature Source Sepsis Recent Fever Within 48 Hours Sepsis New/Unexplained Change in Mental Status Sepsis Action Taken by Nursing Pulse Rate 95 H 97 H 94 H Pulse Rate [Right Finger] Pulse Rate from SpO2 Sensor 96 H 97 H 94 H Pulse Rhythm Pulse Rhythm [Right Finger] Pulse Strength Pulse Strength [Right Finger] Respiratory Rate 27 H 29 H 27 H Respiratory Effort / Characteristics Respiratory Depth Respiratory Pattern Blood Pressure 87/56 L 85/58 L Blood Pressure [Right Arm] Blood Pressure Mean 66 67 Blood Pressure Mean [Right Arm] Blood Pressure Position Blood Pressure Position [Right Arm] Pulse Oximetry 96 96 97 Oxygen Delivery Method Oxygen Flow Rate Fraction of Inspired Oxygen SaO2/FiO2 Ratio 12/20/18 15:36 12/20/18 15:40 12/20/18 15:41 Temperature Temperature Source Sepsis Recent Fever Within 48 Hours Sepsis New/Unexplained Change in Mental Status Sepsis Action Taken by Nursing Pulse Rate 91 H 87 88 Pulse Rate [Right Finger] Pulse Rate from SpO2 Sensor 92 H 87 89 Pulse Rhythm Pulse Rhythm [Right Finger] Pulse Strength Pulse Strength [Right Finger] Respiratory Rate 25 H 26 H 26 H Respiratory Effort / Characteristics Respiratory Depth Respiratory Pattern Blood Pressure 88/57 L 88/53 L Blood Pressure [Right Arm] Blood Pressure Mean 67 64 Blood Pressure Mean [Right Arm] Blood Pressure Position Blood Pressure Position [Right Arm] Pulse Oximetry 100 100 100 Oxygen Delivery Method Oxygen Flow Rate Fraction of Inspired Oxygen SaO2/FiO2 Ratio 12/20/18 15:45 12/20/18 15:50 12/20/18 15:51 Temperature Temperature Source Sepsis Recent Fever Within 48 Hours Sepsis New/Unexplained Change in Mental Status Sepsis Action Taken by Nursing Pulse Rate 87 85 86 Pulse Rate [Right Finger] Pulse Rate from SpO2 Sensor 86 86 86 Pulse Rhythm Pulse Rhythm [Right Finger] Pulse Strength Pulse Strength [Right Finger] Respiratory Rate 23 26 H 26 H Respiratory Effort / Characteristics Respiratory Depth Respiratory Pattern Blood Pressure 96/57 L 102/51 L Blood Pressure [Right Arm] Blood Pressure Mean 70 68 Blood Pressure Mean [Right Arm] Blood Pressure Position Blood Pressure Position [Right Arm] Pulse Oximetry 100 100 100 Oxygen Delivery Method Oxygen Flow Rate Fraction of Inspired Oxygen SaO2/FiO2 Ratio 12/20/18 15:56 12/20/18 16:00 12/20/18 16:01 Temperature Temperature Source Sepsis Recent Fever Within 48 Hours Sepsis New/Unexplained Change in Mental Status Sepsis Action Taken by Nursing Pulse Rate 85 86 85 Pulse Rate [Right Finger] Pulse Rate from SpO2 Sensor 85 86 85 Pulse Rhythm Pulse Rhythm [Right Finger] Pulse Strength Pulse Strength [Right Finger] Respiratory Rate 25 H 25 H 25 H Respiratory Effort / Characteristics Respiratory Depth Respiratory Pattern Blood Pressure 99/56 L 100/58 L Blood Pressure [Right Arm] Blood Pressure Mean 70 72 Blood Pressure Mean [Right Arm] Blood Pressure Position Blood Pressure Position [Right Arm] Pulse Oximetry 100 100 100 Oxygen Delivery Method Oxygen Flow Rate Fraction of Inspired Oxygen SaO2/FiO2 Ratio 12/20/18 16:06 12/20/18 16:10 12/20/18 16:11 Temperature Temperature Source Sepsis Recent Fever Within 48 Hours Sepsis New/Unexplained Change in Mental Status Sepsis Action Taken by Nursing Pulse Rate 87 87 86 Pulse Rate [Right Finger] Pulse Rate from SpO2 Sensor 87 88 86 Pulse Rhythm Pulse Rhythm [Right Finger] Pulse Strength Pulse Strength [Right Finger] Respiratory Rate 24 23 23 Respiratory Effort / Characteristics Respiratory Depth Respiratory Pattern Blood Pressure 90/54 L 95/54 L Blood Pressure [Right Arm] Blood Pressure Mean 66 67 Blood Pressure Mean [Right Arm] Blood Pressure Position Blood Pressure Position [Right Arm] Pulse Oximetry 100 99 98 Oxygen Delivery Method Oxygen Flow Rate Fraction of Inspired Oxygen SaO2/FiO2 Ratio 12/20/18 17:01 12/20/18 17:20 12/20/18 19:13 Temperature 37.1 C 36 C L Temperature Source Axillary Axillary Sepsis Recent Fever Within 48 Hours Sepsis New/Unexplained Change in Mental Status Sepsis Action Taken by Nursing Pulse Rate 86 Pulse Rate [Right Finger] 82 73 Pulse Rate from SpO2 Sensor Pulse Rhythm Pulse Rhythm [Right Finger] Regular Regular Pulse Strength Pulse Strength [Right Finger] Normal Normal Respiratory Rate 19 20 Respiratory Effort / Characteristics Accessory Muscle Use Non-Labored Respiratory Depth Retractive Normal Respiratory Pattern Agonal Kussmaul Rapid/Deep Regular Blood Pressure Blood Pressure [Right Arm] 99/61 L 102/67 Blood Pressure Mean Blood Pressure Mean [Right Arm] 73 78 Blood Pressure Position Blood Pressure Position [Right Arm] Lying Lying Pulse Oximetry 97 100 Oxygen Delivery Method BiPAP BiPAP Oxygen Flow Rate Fraction of Inspired Oxygen 80 SaO2/FiO2 Ratio 125 12/20/18 20:00 12/20/18 20:15 Temperature Temperature Source Sepsis Recent Fever Within 48 Hours Sepsis New/Unexplained Change in Mental Status Sepsis Action Taken by Nursing Pulse Rate Pulse Rate [Right Finger] 75 Pulse Rate from SpO2 Sensor Pulse Rhythm Pulse Rhythm [Right Finger] Pulse Strength Pulse Strength [Right Finger] Respiratory Rate 20 Respiratory Effort / Characteristics Non-Labored Non-Labored Respiratory Depth Normal Respiratory Pattern Regular Blood Pressure Blood Pressure [Right Arm] Blood Pressure Mean Blood Pressure Mean [Right Arm] Blood Pressure Position Blood Pressure Position [Right Arm] Pulse Oximetry 99 Oxygen Delivery Method BiPAP BiPAP Oxygen Flow Rate Fraction of Inspired Oxygen 60 80 SaO2/FiO2 Ratio Home Medications Current Medication List: was personally reviewed by me Laboratory Data Attestation: I reviewed the patient's lab results. Result diagrams: 12/20/18 14:12 12/20/18 14:12 Lab Results 12/20/18 12/20/18 12/20/18 Range/Units 14:12 14:12 14:14 WBC 32.26 H* (4.8-10.8) K/uL RBC 3.29 L (4.7-6.1) M/uL Hgb 10.5 L (14.0-18.0) g/dL POC Hgb (14.0-18.0) g/dl Hct 31.7 L (42-52) % POC Hct (42-52) % MCV 96.4 (80-100) fL MCH 31.9 (25-34) pg MCHC 33.1 (32-36) g/dL RDW Std Deviation 60.0 H (36.4-46.3) fL RDW Coeff of Tyson 16.9 H (11.5-14.5) % Plt Count 243 (130-400) K/uL MPV 9.0 (7.4-10.4) fL Immature Gran % (Auto) 1.0 % Neut % (Auto) 89.4 % Lymph % (Auto) 2.2 % Ross % (Auto) 7.2 % Eos % (Auto) 0.0 % Baso % (Auto) 0.2 % Immature Gran # (Auto) 0.31 H (0.00-0.02) K/uL Neut # (Auto) 28.85 H (1.4-6.5) K/uL Lymph # (Auto) 0.72 L (1.2-3.4) K/uL Ross # (Auto) 2.33 H (0.11-0.59) K/uL Eos # (Auto) 0.00 (0-0.5) K/uL Baso # (Auto) 0.05 (0-0.2) K/uL Toxic Granulation 1+ Toxic Vacuolation 1+ Rouleaux 1+ POC Sodium (135-144) mEq/L Sodium 138 (136-145) mmol/L POC Potassium (3.3-5.0) mEq/L Potassium 4.3 (3.5-5.1) mmol/L POC Chloride (101-112) mEq/L Chloride 102 (98-107) mmol/L Carbon Dioxide 30 (21-32) mmol/L POC Total CO2 (24-31) mEq/l Anion Gap 6.0 (3-11) POC Anion Gap (16-25) mmol/L POC BUN (7-18) mg/dl BUN 37 H (7-18) mg/dl Creatinine 0.89 (0.6-1.4) mg/dl POC Creatinine (0.6-1.3) mg/dl Est Cr Clr Drug Dosing Not Reportable Est GFR ( Amer) 102.5 Est GFR (Non-Af Amer) 88.5 BUN/Creatinine Ratio 41.7 H (10-20) Glucose 131 H (70-99) mg/dl POC Glucose (other) (70-99) mg/dl POC Lactic Acid Ivan 1.17 (0.90-1.70) mmol/L Calcium 8.2 L (8.5-10.1) mg/dl POC Ioniz Calcium Kvng (1.12-1.32) mmol/l Total Bilirubin 0.4 (0.2-1) mg/dl AST 37 (15-37) U/L ALT 30 (12-78) U/L Alkaline Phosphatase 60 (45-117) U/L POC Troponin I (0-0.045) ng/ml Troponin I 0.023 (0-0.045) ng/ml Total Protein 6.8 (6.4-8.2) gm/dl Albumin 1.7 L (3.4-5.0) gm/dl Globulin 5.1 H (2.5-4.0) gm/dl Albumin/Globulin Ratio 0.3 L (0.9-2) Urine Color Urine Appearance (Clear) Urine pH (4.5-7.5) Ur Specific [place] (1.000-1.030) Urine Protein (Negative) Urine Glucose (UA) (Negative) Urine Ketones (Negative) Urine Blood (Negative) Urine Nitrite (Negative) Urine Bilirubin (Negative) Urine Urobilinogen (Negative) Ur Leukocyte Esterase (Negative) Urine WBC (Auto) (0-5) /hpf Urine RBC (Auto) (0-4) /hpf U Hyaline Cast (Auto) (0-5) /lpf U Epithel Cells (Auto) (0-5) /lpf Urine Bacteria (Auto) (Negative) Ur Renal Epithelial Cell Urine Mucus (None Prsent) Valproic Acid (50-100) mcg/ml 12/20/18 12/20/18 12/20/18 Range/Units 14:15 14:17 14:17 WBC (4.8-10.8) K/uL RBC (4.7-6.1) M/uL Hgb (14.0-18.0) g/dL POC Hgb 9.9 L (14.0-18.0) g/dl Hct (42-52) % POC Hct 29 L (42-52) % MCV (80-100) fL MCH (25-34) pg MCHC (32-36) g/dL RDW Std Deviation (36.4-46.3) fL RDW Coeff of Tyson (11.5-14.5) % Plt Count (130-400) K/uL MPV (7.4-10.4) fL Immature Gran % (Auto) % Neut % (Auto) % Lymph % (Auto) % Ross % (Auto) % Eos % (Auto) % Baso % (Auto) % Immature Gran # (Auto) (0.00-0.02) K/uL Neut # (Auto) (1.4-6.5) K/uL Lymph # (Auto) (1.2-3.4) K/uL Ross # (Auto) (0.11-0.59) K/uL Eos # (Auto) (0-0.5) K/uL Baso # (Auto) (0-0.2) K/uL Toxic Granulation Toxic Vacuolation Rouleaux POC Sodium 139 (135-144) mEq/L Sodium (136-145) mmol/L POC Potassium 4.4 (3.3-5.0) mEq/L Potassium (3.5-5.1) mmol/L POC Chloride 99 L (101-112) mEq/L Chloride (98-107) mmol/L Carbon Dioxide (21-32) mmol/L POC Total CO2 27 (24-31) mEq/l Anion Gap (3-11) POC Anion Gap 18.0 (16-25) mmol/L POC BUN 31 H (7-18) mg/dl BUN (7-18) mg/dl Creatinine (0.6-1.4) mg/dl POC Creatinine 1.0 (0.6-1.3) mg/dl Est Cr Clr Drug Dosing Est GFR ( Amer) Est GFR (Non-Af Amer) BUN/Creatinine Ratio (10-20) Glucose (70-99) mg/dl POC Glucose (other) 137 H (70-99) mg/dl POC Lactic Acid Ivan (0.90-1.70) mmol/L Calcium (8.5-10.1) mg/dl POC Ioniz Calcium Kvng 1.10 L (1.12-1.32) mmol/l Total Bilirubin (0.2-1) mg/dl AST (15-37) U/L ALT (12-78) U/L Alkaline Phosphatase (45-117) U/L POC Troponin I 0.03 (0-0.045) ng/ml Troponin I (0-0.045) ng/ml Total Protein (6.4-8.2) gm/dl Albumin (3.4-5.0) gm/dl Globulin (2.5-4.0) gm/dl Albumin/Globulin Ratio (0.9-2) Urine Color Dark Yellow Urine Appearance Cloudy H (Clear) Urine pH 5.0 (4.5-7.5) Ur Specific [place] 1.028 (1.000-1.030) Urine Protein Negative (Negative) Urine Glucose (UA) Negative (Negative) Urine Ketones Trace H (Negative) Urine Blood 1+ H (Negative) Urine Nitrite Negative (Negative) Urine Bilirubin Negative (Negative) Urine Urobilinogen Negative (Negative) Ur Leukocyte Esterase 1+ H (Negative) Urine WBC (Auto) 10-30 H (0-5) /hpf Urine RBC (Auto) 5-10 H (0-4) /hpf U Hyaline Cast (Auto) 1-5 (0-5) /lpf U Epithel Cells (Auto) >30 H (0-5) /lpf Urine Bacteria (Auto) Negative (Negative) Ur Renal Epithelial Cell Not Reportable Urine Mucus Present H (None Prsent) Valproic Acid (50-100) mcg/ml 12/20/18 Range/Units 17:34 WBC (4.8-10.8) K/uL RBC (4.7-6.1) M/uL Hgb (14.0-18.0) g/dL POC Hgb (14.0-18.0) g/dl Hct (42-52) % POC Hct (42-52) % MCV (80-100) fL MCH (25-34) pg MCHC (32-36) g/dL RDW Std Deviation (36.4-46.3) fL RDW Coeff of Tyson (11.5-14.5) % Plt Count (130-400) K/uL MPV (7.4-10.4) fL Immature Gran % (Auto) % Neut % (Auto) % Lymph % (Auto) % Ross % (Auto) % Eos % (Auto) % Baso % (Auto) % Immature Gran # (Auto) (0.00-0.02) K/uL Neut # (Auto) (1.4-6.5) K/uL Lymph # (Auto) (1.2-3.4) K/uL Ross # (Auto) (0.11-0.59) K/uL Eos # (Auto) (0-0.5) K/uL Baso # (Auto) (0-0.2) K/uL Toxic Granulation Toxic Vacuolation Rouleaux POC Sodium (135-144) mEq/L Sodium (136-145) mmol/L POC Potassium (3.3-5.0) mEq/L Potassium (3.5-5.1) mmol/L POC Chloride (101-112) mEq/L Chloride (98-107) mmol/L Carbon Dioxide (21-32) mmol/L POC Total CO2 (24-31) mEq/l Anion Gap (3-11) POC Anion Gap (16-25) mmol/L POC BUN (7-18) mg/dl BUN (7-18) mg/dl Creatinine (0.6-1.4) mg/dl POC Creatinine (0.6-1.3) mg/dl Est Cr Clr Drug Dosing Est GFR ( Amer) Est GFR (Non-Af Amer) BUN/Creatinine Ratio (10-20) Glucose (70-99) mg/dl POC Glucose (other) (70-99) mg/dl POC Lactic Acid Ivan (0.90-1.70) mmol/L Calcium (8.5-10.1) mg/dl POC Ioniz Calcium Kvng (1.12-1.32) mmol/l Total Bilirubin (0.2-1) mg/dl AST (15-37) U/L ALT (12-78) U/L Alkaline Phosphatase (45-117) U/L POC Troponin I (0-0.045) ng/ml Troponin I (0-0.045) ng/ml Total Protein (6.4-8.2) gm/dl Albumin (3.4-5.0) gm/dl Globulin (2.5-4.0) gm/dl Albumin/Globulin Ratio (0.9-2) Urine Color Urine Appearance (Clear) Urine pH (4.5-7.5) Ur Specific [place] (1.000-1.030) Urine Protein (Negative) Urine Glucose (UA) (Negative) Urine Ketones (Negative) Urine Blood (Negative) Urine Nitrite (Negative) Urine Bilirubin (Negative) Urine Urobilinogen (Negative) Ur Leukocyte Esterase (Negative) Urine WBC (Auto) (0-5) /hpf Urine RBC (Auto) (0-4) /hpf U Hyaline Cast (Auto) (0-5) /lpf U Epithel Cells (Auto) (0-5) /lpf Urine Bacteria (Auto) (Negative) Ur Renal Epithelial Cell Urine Mucus (None Prsent) Valproic Acid 17 L (50-100) mcg/ml Administered Medications Albuterol (Duoneb) 3 ml INH Q8R LAUREANO Stop: 01/19/19 17:19 Last Admin: 12/20/18 20:17 Dose: Not Given Documented by: [id number] Admin: 12/20/18 20:15 Dose: 3 ml Documented by: [id number] Divalproex Sodium (Depakote Sprinkle) 750 mg PEG BID LAUREANO Stop: 01/19/19 20:59 Last Admin: 12/20/18 20:44 Dose: 750 mg Documented by: [id number] Famotidine (Pepcid) 20 mg JT TID LAUREANO Stop: 01/19/19 20:59 Last Admin: 12/20/18 20:44 Dose: 20 mg Documented by: [id number] Heparin Sodium (Porcine) (Heparin Sodium (Porcine)) 5,000 units SQ BID LAUREANO Stop: 01/19/19 20:59 Last Admin: 12/20/18 20:43 Dose: 5,000 units Documented by: [id number] Cosigned by: [id number] Sodium Chloride (Nss 1000ml) 1,000 mls @ 100 mls/hr IV .Q10H LA[place]ANO Stop: 12/21/18 03:19 Last Admin: 12/20/18 18:50 Dose: 100 mls/hr Documented by: [id number] Piperacillin Sod/Tazobactam (Sod 3.375 gm/ Dextrose) 115 mls @ 28.75 mls/hr IV Q8H [facility] Stop: 12/27/18 19:59 Last Admin: 12/20/18 19:18 Dose: 28.8 mls/hr Documented by: [id number] Metoclopramide HCl (Reglan) 5 mg PO Q6H [place]ANO Stop: 01/19/19 18:29 Last Admin: 12/20/18 19:18 Dose: 5 mg Documented by: [id number] Tamsulosin HCl (Flomax) 0.8 mg PO HS LAUREANO Stop: 01/19/19 20:59 Last Admin: 12/20/18 20:44 Dose: 0.8 mg Documented by: [id number] Discontinued Medications Acetaminophen (Ofirmev) Confirm Administered Dose 1,000 mg IV .STK-MED ONE Stop: 12/20/18 15:28 Last Admin: 12/20/18 15:47 Dose: 1,000 mg Documented by: [id number] Albuterol (Duoneb) 3 ml NEB NOW STA Stop: 12/20/18 14:17 Last Admin: 12/20/18 15:02 Dose: 3 ml Documented by: [id number] Sodium Chloride (Nss 1000ml) 2,000 mls @ 999 mls/hr IV .Q2H1M ONE Stop: 12/20/18 16:06 Last Infusion: 12/20/18 16:45 Dose: 0 mls/hr Documented by: [id number] Infusion: 12/20/18 15:30 Dose: 999 mls/hr Documented by: [id number] Admin: 12/20/18 14:49 Dose: 999 mls/hr Documented by: [id number] Sodium Chloride (Nss 1000ml) 1,000 mls @ 125 mls/hr IV .Q8H STA Stop: 12/20/18 22:05 Last Infusion: 12/20/18 19:11 Dose: 0 mls/hr Documented by: [id number] Infusion: 12/20/18 19:05 Dose: 0 mls/hr Documented by: [id number] Infusion: 12/20/18 18:51 Dose: 0 mls/hr Documented by: [id number] Admin: 12/20/18 16:14 Dose: 125 mls/hr Documented by: [id number] Vancomycin HCl 2,000 mg/ (Sodium Chloride) 540 mls @ 200 mls/hr IV NOW STA Stop: 12/20/18 16:47 Last Infusion: 12/20/18 18:51 Dose: 0 mls/hr Documented by: [id number] Admin: 12/20/18 15:46 Dose: 200 mls/hr Documented by: [id number] Piperacillin Sod/Tazobactam Sod (Zosyn) 4.5 gm in 120 mls @ 200 mls/hr IV NOW STA Stop: 12/20/18 14:41 Last Infusion: 12/20/18 15:30 Dose: 0 mls/hr Documented by: [id number] Admin: 12/20/18 14:40 Dose: 200 mls/hr Documented by: [id number] Acetaminophen (Ofirmev) 1,000 mg in 100 mls @ 400 mls/hr IV NOW STA Stop: 12/20/18 15:51 Last Admin: 12/20/18 16:14 Dose: Not Given Documented by: [id number] Imaging Data Radiologist's Impression: Radiology results as stated below per my review and the radiologist's interpretation: XR chest 1V portable CLINICAL HISTORY: hypoxia COMPARISON STUDY: Chest radiograph and chest CT December 12, 2018. FINDINGS: Patient is rotated. There is no pneumothorax. Cardiomegaly is unchanged. Extensive bilateral airspace opacities have progressed since prior exam. There is interstitial thickening. There are are suspected trace bilateral pleural effusions. IMPRESSION: Progression of bilateral airspace opacities with interstitial thickening. The findings suggest worsening pneumonia. Superimposed mild pulmonary edema may be present. Radiographic follow-up to ensure resolution is recommended. Electronically signed by: Rahul Duffy M.D. 12/20/2018 2:38 PM ECG Data Attestation: I personally reviewed and interpreted this ECG as follows: Indication: SOB/dyspnea Rate (beats per minute): 109 Rhythm: sinus tachycardia Findings: + other (Poor R wave progression anteriorly) and + left axis deviation; no PVC, no ST depression and no ST elevation Blood Pressure Blood Pressure Findings: Low blood pressure Blood Pressure Disposition: further management by hospitalist Discharge Plan Visit Data *Final* Discharge Date/Time: 12/20/18 16:25 Chief Complaint: Respiratory Problems ED Provider: Braxton Perez Discharge Problem: Sepsis, Respiratory failure, Pneumonia Patient Disposition: Admitted As Inpatient Discharge Instructions Interventions: ED Discharge Assessment Last Done: 12/20/18 16:25 The scribe's documentation has been prepared under my direction and personally reviewed by me in its entirety. I confirm that the note above accurately reflects all work, treatment, procedures, and medical decision making performed by me.
[2018-12-21] MEDS: VANCOMYCIN HCL 1,250 MG in SODIUM CHLORIDE 0.9% 250 ML IV SCH ×3 (01:46→22:55)
[2018-12-21] MEDS: PIPERACILLIN/TAZOBACTAM 3.375 GM in DEXTROSE 5% 100 ML IV SCH ×3 (04:24→20:30)
[2018-12-21] MEDS: METOCLOPRAMIDE HCL 5 MG TABLET PO SCH ×3 (06:14→18:54)
[2018-12-21 07:00] LABS: Hematocrit (blood only) 25.5 % (42-52); Mean Corpuscular Hgb Conc 31.4 g/dL (32-36); Mean Corpuscular Volume 98.1 fL (80-100); Mean Platelet Volume 8.8 fL (7.4-10.4); Platelet Count 205 K/uL (130-400); RDW Standard Deviation 61.1 fL (36.4-46.3); White Blood Count 20.15 K/uL (4.8-10.8)
[2018-12-21] MEDS: ALBUT/IPRATROP 3MG/0.5MG NEB 3 ML VIAL INH SCH ×3 (07:01→23:16)
[2018-12-21 07:39] LABS: BUN Creatinine Ratio 43.5 (10-20); Calcium 7.7 mg/dl (8.5-10.1); Creatinine Clr Calc Pharmacy 106.7 ml/min; Est GFR (African American) 116.7; Est GFR (Non-African American) 100.7; Potassium 3.5 mmol/L (3.5-5.1)
[2018-12-21] MEDS: FAMOTIDINE 20 MG TAB JT SCH ×4 (08:54→20:41)
[2018-12-21] MEDS: SERTRALINE HCL 100 MG TABLET PEG SCH (08:54)
[2018-12-21] MEDS: DIVALPROEX SODIUM SPRINKLE 125 MG CAP PEG SCH ×2 (08:55→20:34)
[2018-12-21] MEDS: HEPARIN SOD 5,000 UNIT/0.5 ML VIAL SQ SCH ×2 (08:55→20:35)
[2018-12-21] MEDS: LORazepam 0.5 MG/1 ML VIAL IV PRN (09:09)
[2018-12-21] MEDS: PANTOprazole 40 MG in SYRINGE 0 ML IV SCH ×2 (10:26→20:40)
--- NOTE | 2018-12-21 17:14 | Hospitalist Progress Note ---
Date of Service December 21, 2018 Assessment & Plan (1) Sepsis: Patient likely is septic from a pulmonary source from MRSA pneumonia, patient's white count did respond to his antibiotics and is reduced to 20,000. He is still at a low-grade temperature today (2) Acute hypoxemic respiratory failure: Patient is acute of acute respiratory failure from likely MRSA pneumonia superimposed on baseline history of COPD, he remains on vancomycin and Zosyn pen ding sputum cultures likely will need to be continued on a MRSA specific drug considering the nasal it is a can be converted to oral medication (3) Altered mental status, unspecified: Metabolic encephalopathy improving from pneumonia (4) Chronic pulmonary aspiration: Patient is unable to p provide us with details of his need for his PEG tube. He subsequently usually takes Peptamen 1500 mL overnight with free water flushes added. Is currently on hold due to his significant illness (5) Depression: Patient has significant depression with outbursts at times his clonazepam is currently being held due to his obtunded mental state but likely will need to be restarted given possibility of withdrawal continuing as needed Risperdal for outburst and sertraline 100 via feeding tube There is some discussion about the patient being on valproic acid possibly for mood stabilization (6) BPH (benign prostatic hyperplasia): Previously the patient was on tamsulosin this will be continued complaints of lower urinary tract symptoms (7) DVT prophylaxis: Patient is on heparin DVT prevention [facility] at the [facility] [place] Subjective Patient slightly more responsive but remains on BiPAP he still had low-grade temperature today. He is copious amounts of secretions being expelled from his lungs with his pneumonia which is likely MRSA pneumonia Review of Systems Unobtainable due to cognitive status Physical Exam Vital Signs (Past 24 Hours): Last Vital Signs Temp 38.1 C H 12/21/18 16:50 Pulse 87 12/21/18 15:40 Resp 20 12/21/18 15:40 BP 108/61 12/21/18 15:40 Pulse Ox 95 12/21/18 15:40 The patient appeared chronically ill Vital signs as documented. Head exam is unremarkable. normocephalic, atraumatic Neck is without jugular venous distension, thyromegaly, or lymphademopathy Lungs are coarse with decreased air movement Cardiac exam reveals Rhythm is regular. First and second heart sounds normal. Abdominal exam reveals normal bowel sounds, no masses, no organomegaly Extremities are nonedematous and both pedal pulses are present Neurologic exam is A&Ox2, globally oblique spontaneously moves all extremities (1) Altered mental status, unspecified Altered mental status type: coma Coma depth: [place] coma 9-12 Coma timing: unspecified coma timing Qualified Code(s): R40.2420 - Sofi coma scale score 9-12, unspecified time
[2018-12-21] MEDS: ACETAMINOPHEN SOLN 500 MG/15.62 ML UDP GT PRN (18:56)
[2018-12-21] MEDS: TAMSULOSIN HCL 0.4 MG CAP PO SCH (22:46)
[2018-12-22] MEDS: METOCLOPRAMIDE HCL 5 MG TABLET PO SCH ×4 (01:03→17:54)
[2018-12-22] MEDS: PIPERACILLIN/TAZOBACTAM 3.375 GM in DEXTROSE 5% 100 ML IV SCH ×3 (04:03→20:28)
[2018-12-22] MEDS: ALBUT/IPRATROP 3MG/0.5MG NEB 3 ML VIAL INH SCH ×3 (07:03→23:22)
[2018-12-22 07:19] LABS: Hematocrit (blood only) 27.4 % (42-52); Hemoglobin 8.7 g/dL (14.0-18.0); Mean Corpuscular Hgb Conc 31.8 g/dL (32-36); Mean Corpuscular Volume 97.2 fL (80-100); Mean Platelet Volume 8.6 fL (7.4-10.4); Platelet Count 247 K/uL (130-400); RDW Coefficient of Variation 16.5 % (11.5-14.5); RDW Standard Deviation 59.2 fL (36.4-46.3); Red Blood Count 2.82 M/uL (4.7-6.1); White Blood Count 11.63 K/uL (4.8-10.8)
[2018-12-22] MEDS ORDERED: VANCOMYCIN TROUGH ONE ×2 (07:45→17:30)
[2018-12-22 07:55] LABS: BUN Creatinine Ratio 34.9 (10-20); Calcium 8.2 mg/dl (8.5-10.1); Creatinine Clr Calc Pharmacy 138.7 ml/min; Est GFR (Non-African American) 112.1; Potassium 3.1 mmol/L (3.5-5.1)
[2018-12-22] MEDS: DIVALPROEX SODIUM SPRINKLE 125 MG CAP PEG SCH ×2 (09:22→20:30)
[2018-12-22] MEDS: SERTRALINE HCL 100 MG TABLET PEG SCH (09:23)
[2018-12-22] MEDS: FAMOTIDINE 20 MG TAB JT SCH ×3 (09:25→20:30)
[2018-12-22] MEDS: HEPARIN SOD 5,000 UNIT/0.5 ML VIAL SQ SCH ×2 (09:26→20:30)
[2018-12-22] MEDS: VANCOMYCIN HCL 1,250 MG in SODIUM CHLORIDE 0.9% 250 ML IV SCH ×2 (09:32→17:54)
[2018-12-22] MEDS: PANTOprazole 40 MG in SYRINGE 0 ML IV SCH ×2 (09:32→20:30)
[2018-12-22] MEDS: ACETAMINOPHEN SOLN 500 MG/15.62 ML UDP GT PRN (12:48)
--- NOTE | 2018-12-22 16:05 | Hospitalist Progress Note ---
Date of Service December 22, 2018 Assessment & Plan (1) Sepsis: Patient likely is septic from a pulmonary source from MRSA pneumonia, patient's white count did respond to his antibiotics and is reduced to 11,000. Fever has improved. Patient continues to require BIPAP. Will try to titrate him off bipap tomorrow. Sptum culture is positive for MRSA. Sensitive to vanco. If having difficulty, may consider pulmonary consult. (2) Acute hypoxemic respiratory failure: Patient is acute of acute respiratory failure from likely MRSA pneumonia superimposed on baseline history of COPD, he remains on vancomycin and Zosyn pending sputum cultures likely will need to be continued on a MRSA specific drug considering the nasal it is a can be converted to oral medication. On 12/22, will continue current antibiotic regimen as patient is improving. (3) Altered mental status, unspecified: Metabolic encephalopathy improving from pneumonia . However difficult to asess today on 12/22 due to patient on BIPAP. (4) Chronic pulmonary aspiration: Patient is unable to p \\provide us with details of his need for his PEG tube. He subsequently usually takes Peptamen 1500 mL overnight with free water flushes added. Is currently on hold due to his significant illness. (5) Depression: Patient has significant depression with outbursts at times his clonazepam is currently being held due to his obtunded mental state but likely will need to be restarted given possibility of withdrawal continuing as needed Risperdal for outburst and sertraline 100 via feeding tube There is some discussion about the patient being on valproic acid possibly for mood stabilization. (6) BPH (benign prostatic hyperplasia): Previously the patient was on tamsulosin this will be continued complaints of lower urinary tract symptoms (7) DVT prophylaxis: Patient is on heparin DVT prevention even at the residential [place] Spent 35 minutes in management of patient. Subjective Patient has bipap on. Unlocked mask to hear if he had any complaints. All patient states was that he wanted the bipap back on. Unable to obtain ROS. Physical Exam Vital Signs (Past 24 Hours): Last Vital Signs Temp 36.8 C 12/22/18 16:03 Pulse 87 12/22/18 16:03 Resp 16 12/22/18 16:03 BP 115/70 12/22/18 16:03 Pulse Ox 100 12/22/18 16:03 Physical Exam: The patient appeared chronically ill Vital signs as documented. Head exam is unremarkable. normocephalic, atraumatic Neck is without jugular venous distension, thyromegaly, or lymphademopathy Lungs are coarse with decreased air movement Cardiac exam reveals Rhythm is regular. First and second heart sounds normal. Abdominal exam reveals normal bowel sounds, no masses, no organomegaly Extremities are nonedematous and both pedal pulses are present Neurologic exam is A&Ox2, globally oblique spontaneously moves all extremities (1) Altered mental status, unspecified Altered mental status type: coma Coma depth: Sofi coma 9-12 Coma timing: unspecified coma timing Qualified Code(s): R40.2420 - [place] coma scale score 9-12, unspecified time
[2018-12-22] MEDS: TAMSULOSIN HCL 0.4 MG CAP PO SCH (20:30)
--- NOTE | 2018-12-22 20:38 | Pharmacy Report ---
Pharmacy Abx Dose Short Note - Date of Service December 22, 2018 - Assessment & Plan Assessment 68 year old M receiving IV Vancomycin and Zosyn for treatment of MRSA aspiration pneumonia Day # 3 of antimicrobial therapy. Plan Vancomycin * Trough level of 20.6 mcg/mL (appropriately drawn) is slightly supratherapeutic. Vancomycin was already administered by the time level could be assessed. Therefore, will delay time of next dose. * Change to 1250 mg IV every 12 hours - slightly incr' dosing interval to target a lower trough * Goal trough level for pneumonia : 15 to 20 mcg/mL * Trough level ordered for: 12/24/18 @ 0930 (only prior to 3rd dose and therefore not reflective of steady state, but would like to assess dosing regimen earlier due to recent supratherapeutic level) Pharmacy will continue to follow and will adjust dose/frequency as necessary. Thank you.
[2018-12-23] MEDS: METOCLOPRAMIDE HCL 5 MG TABLET PO SCH ×4 (00:40→17:09)
[2018-12-23] MEDS: PIPERACILLIN/TAZOBACTAM 3.375 GM in DEXTROSE 5% 100 ML IV SCH ×3 (04:24→20:16)
[2018-12-23 07:00] LABS: Hematocrit (blood only) 27.7 % (42-52); Hemoglobin 8.8 g/dL (14.0-18.0); Mean Corpuscular Hgb Conc 31.8 g/dL (32-36); Mean Corpuscular Volume 97.5 fL (80-100); Mean Platelet Volume 8.6 fL (7.4-10.4); Platelet Count 307 K/uL (130-400); RDW Coefficient of Variation 16.3 % (11.5-14.5); RDW Standard Deviation 58.1 fL (36.4-46.3); Red Blood Count 2.84 M/uL (4.7-6.1); White Blood Count 9.85 K/uL (4.8-10.8)
[2018-12-23] MEDS: ALBUT/IPRATROP 3MG/0.5MG NEB 3 ML VIAL INH SCH ×3 (07:00→22:44)
[2018-12-23 07:29] LABS: BUN Creatinine Ratio 28.2 (10-20); Calcium 8.3 mg/dl (8.5-10.1); Creatinine Clr Calc Pharmacy 347.4 ml/min; Est GFR (African American) 133.3; Potassium 3.3 mmol/L (3.5-5.1)
[2018-12-23] MEDS: DIVALPROEX SODIUM SPRINKLE 125 MG CAP PEG SCH ×2 (08:37→20:39)
[2018-12-23] MEDS: SERTRALINE HCL 100 MG TABLET PEG SCH (08:37)
[2018-12-23] MEDS: FAMOTIDINE 20 MG TAB JT SCH ×3 (08:37→20:39)
[2018-12-23] MEDS: PANTOprazole 40 MG in SYRINGE 0 ML IV SCH (08:38)
[2018-12-23] MEDS: HEPARIN SOD 5,000 UNIT/0.5 ML VIAL SQ SCH ×2 (08:41→20:40)
[2018-12-23] MEDS: VANCOMYCIN HCL 1,250 MG in SODIUM CHLORIDE 0.9% 250 ML IV SCH ×2 (09:07→21:09)
[2018-12-23] MEDS: LORazepam 0.5 MG/1 ML VIAL IV PRN ×2 (11:50→20:40)
[2018-12-23] MEDS: PEPTAMEN 1.5 CAL 1,000 ML BAG PEG SCH ×2 (11:52→17:09)
[2018-12-23] MEDS: POTASSIUM CHLORIDE / WTR 10 MEQ/100 ML PLCT IV SCH ×2 (20:11→21:09)
[2018-12-23] MEDS: TAMSULOSIN HCL 0.4 MG CAP PO SCH (20:39)
[2018-12-23] MEDS: LANSOPRAZOLE 15 MG SOLTAB PEG SCH (20:39)
--- NOTE | 2018-12-23 23:43 | Hospitalist Progress Note ---
Date of Service December 23, 2018 Assessment & Plan (1) Sepsis: Patient likely is septic from a pulmonary source from MRSA pneumonia, patient's white count did respond to his antibiotics and is reduced to 11,000. Fever has improved. Patient continues to require BIPAP. Will try to titrate him off bipap today. D/W nurse Will also consult Pulmonary. Sputum culture is positive for MRSA. Sensitive to vanco. (2) Acute hypoxemic respiratory failure: Patient is acute of acute respiratory failure from likely MRSA pneumonia superimposed on baseline history of COPD, he remains on vancomycin and Zosyn pending sputum cultures likely will need to be continued on a MRSA specific drug considering the nasal it is a can be converted to oral medication. On 12/23, will continue current antibiotic regimen as patient is improving. (3) Altered mental status, unspecified: Metabolic encephalopathy improving from pneumonia . However difficult to asess today on 12/22 due to patient on BIPAP. (4) Chronic pulmonary aspiration: Patient is unable to p \\provide us with details of his need for his PEG tube. He subsequently usually takes Peptamen 1500 mL overnight with free water flushes added. Will resume feedings today and consult nutrition. (5) Depression: Patient has significant depression with outbursts at times his clonazepam is currently being held due to his obtunded mental state but likely will need to be restarted given possibility of withdrawal continuing as needed Risperdal for outburst and sertraline 100 via feeding tube There is some discussion about the patient being on valproic acid possibly for mood stabilization. (6) BPH (benign prostatic hyperplasia): Previously the patient was on tamsulosin this will be continued complaints of lower urinary tract symptoms (7) DVT prophylaxis: Patient is on heparin DVT prevention even at the [facility] Spent 35 minutes in management of patient. Discussion with nurse, consultants and patient Subjective Patient remains on BIPAP. Patient was seen in AM. Patient reports no changes today. Unable to obtain ROS. Physical Exam Vital Signs (Past 24 Hours): Last Vital Signs Temp 37.9 C H 12/23/18 20:00 Pulse 98 H 12/23/18 20:00 Resp 22 12/23/18 20:00 BP 161/79 H 12/23/18 20:00 Pulse Ox 100 12/23/18 20:00 Physical Exam: The patient appeared chronically ill. Remains on BIPAP. Vital signs as documented. Head exam is unremarkable. normocephalic, atraumatic Neck is without jugular venous distension, thyromegaly, or lymphademopathy Lungs are coarse with decreased air movement Cardiac exam reveals Rhythm is regular. First and second heart sounds normal. Abdominal exam reveals normal bowel sounds, no masses, no organomegaly Extremities are nonedematous and both pedal pulses are present Neurologic exam is A&Ox2, globally oblique spontaneously moves all extremities (1) Altered mental status, unspecified Altered mental status type: coma Coma depth: [place] coma 9-12 Coma timing: unspecified coma timing Qualified Code(s): R40.2420 - Sofi coma scale score 9-12, unspecified time
[2018-12-24] MEDS: METOCLOPRAMIDE HCL 5 MG TABLET PO SCH ×5 (00:44→23:32)
--- NOTE | 2018-12-24 01:54 | Consultation Report ---
DATE OF CONSULTATION: 12/23/2018 PULMONARY CONSULTATION TIME: 4:30 p.m. REPORT OF CONSULTATION: The patient was seen in room 237. He is a 68-year-old male who was hospitalized from 12/12/2018 until 12/16/2018. At that time, he was felt to have aspiration pneumonia. He was hypoxic. Subsequently, reportedly he underwent suction of approximately 700 mL of his stomach contents from his airways. Following suction his oxygen levels improved on BiPAP. Reportedly, this was done in the Emergency Room, although I had difficulty finding documentation of this. He clinically improved and was discharged on 12/16/2018. He was brought back to the Emergency Room on 12/20/2018. Reportedly, constant respiratory distress started again on that date. The patient was nonverbal and confused and could only communicate through moaning. He has had ongoing issues since the admission. Today, however, he is improved. He had been on BiPAP for a couple of days. He is now off BiPAP on an OxyMask. He is now verbalizing. The patient is not a reliable historian. He thinks he is [place] place near [place]. He was able to tell me his date of , but not his age. He did tell me he thought it was December which is not too far off. He states he is breathing better. He indicated he had some pain in his anterior chest and in his stomach areas. He denies shortness of breath at present. According to nursing staff. The patient was afraid to take the BiPAP off and he refused to have the BiPAP removed until today. Since admission, he has been getting treated again for presumed pneumonia from MRSA. His sputum cultures from last time showed MRSA. He has been on Zosyn and vancomycin. The patient has been getting nebulizer treatments. PAST MEDICAL HISTORY: 1. COPD. 2. Pneumonia. 3. Reflux. 4. BPH. 5. Depression. 6. Anxiety. 7. Bipolar disorder. 8. OCD. PAST SURGICAL HISTORY: PEG tube insertion. SOCIAL HISTORY: The patient tells me that he smoked from age 16 until age 36 at about a pack per day. I do not know if this is reliable. Alcohol use is unknown. ALLERGIES: LISTED ALLERGIES TO HALDOL AND RITALIN. FAMILY HISTORY: Unknown. REVIEW OF SYSTEMS: Unobtainable except what is already noted. CURRENT MEDICATIONS: 1. Zosyn. 2. Vancomycin. 3. Famotidine. 4. SubQ heparin. 5. Reglan. 6. DuoNeb q. 8 hours. 7. Sertraline. 8. Flomax. 9. Divalproex. 10. Prevacid. 11. Enteral nutritional formula Peptamen. 12. Lorazepam p.r.n. 13. Zofran p.r.n. 14. Risperdal p.r.n. 15. Tylenol p.r.n. PHYSICAL EXAMINATION: GENERAL: The patient is a 68-year-old male who looked appropriate for his age. He was examined in a recliner chair. VITAL SIGNS: Temperature is 37.2. Maximum temperature since this admission 38.1. HEENT: Pupils were reactive. Oropharynx was dry. The patient is wearing an OxyMask at 5 liters. No lymph nodes were palpable in the neck. He seems rigid in the neck. CARDIAC: Rate 97 per minute. Rhythm regular. Blood pressure 161/78. LUNGS: Lung thakur revealed rales posteriorly at the left base greater than the right base. Respiratory rate 20. It is notable that on the date of admission his respiratory rates were actually into the 60s and his saturations had been 86% on 15 liters. Blood pressures had been systolically in the 70s at the time of admission. ABDOMEN: Inspection of the abdomen reveals a PEG tube. Bowel sounds were present. There was no tenderness to palpation or masses. EXTREMITIES: Shows no cyanosis, clubbing or edema. He has somewhat limited movements. There is a Noble catheter in place. LABORATORY DATA: Chest x-ray going back to 12/12/2018 showed patchy airspace opacities at both bases, left greater than right. CT angio of the chest on 12/12/2018 showed no evidence of pulmonary embolic disease. There was dense consolidation at both bases, right greater than left with some patchy consolidation seen in the upper lung zones. Splenomegaly was reported. Small hiatal hernia was seen. Venous Doppler on 12/12/2018 showed no evidence of DVT. Chest x-ray on admission showed progression of bilateral airspace opacities. White count today is 9.85. On admission of 12/20/2018 white count was 32.26. On the 12/21/2018, white count down to 20.15. Today white count down to 9.85. Hemoglobin 8.8 today and had been 10.5 on admission. The patient did have a blood gas on the prior admission from 12/13/2018 showing pH 7.38, pCO2 of 56, pO2 260 done on a BiPAP. Electrolytes today show sodium 142, potassium 3.3, chloride 107, bicarbonate 27. BUN was 13 with a creatinine of 0.47. Blood cultures on 12/12/2018 were positive for MRSA. He has a sputum from 12/12/2018 and now from 12/20/2018 that are positive for MRSA. Sputums were sensitive to rifampin, tetracycline, sulfa and vancomycin. Sensitivities from the blood cultures were very similar. IMPRESSIONS: 1. Sepsis likely secondary to Methicillin-resistant staphylococcus aureus pneumonia. 2. Respiratory failure, acute on chronic with hypoxia and hypercarbia. 3. Possible aspiration. COMMENTS AND RECOMMENDATIONS: The patient is clinically much improved. He is now talking and much less confused and less short of breath. I would repeat an x-ray tomorrow to search for improvements. He was discharged last time with Augmentin. It would appear that that was not successful in eradicating the MRSA. Advised alternative treatment when he is ready to go back to the [facility]. For now, we would continue with the vancomycin. Tetracycline or sulfa would be oral alternatives as per sensitivities for when patient gets discharged. Thank you for asking me to assist in his care. JOSH
[2018-12-24] MEDS: PIPERACILLIN/TAZOBACTAM 3.375 GM in DEXTROSE 5% 100 ML IV SCH (04:07)
[2018-12-24 06:19] LABS: Hematocrit (blood only) 25.4 % (42-52); Hemoglobin 8.1 g/dL (14.0-18.0); Mean Corpuscular Hgb Conc 31.9 g/dL (32-36); Mean Corpuscular Volume 96.2 fL (80-100); Mean Platelet Volume 8.2 fL (7.4-10.4); Platelet Count 263 K/uL (130-400); RDW Coefficient of Variation 16.1 % (11.5-14.5); RDW Standard Deviation 57.1 fL (36.4-46.3); Red Blood Count 2.64 M/uL (4.7-6.1); White Blood Count 7.28 K/uL (4.8-10.8)
[2018-12-24 06:52] LABS: BUN Creatinine Ratio 14.5 (10-20); Calcium 8.1 mg/dl (8.5-10.1); Creatinine Clr Calc Pharmacy 141.5 ml/min; Est GFR (African American) 131.1; Est GFR (Non-African American) 113.1; Magnesium 1.6 mg/dl (1.8-2.4); Phosphorus 2.4 mg/dl (2.5-4.9); Potassium 3.3 mmol/L (3.5-5.1)
[2018-12-24] MEDS: ALBUT/IPRATROP 3MG/0.5MG NEB 3 ML VIAL INH SCH ×3 (07:08→23:10)
[2018-12-24] MEDS: HEPARIN SOD 5,000 UNIT/0.5 ML VIAL SQ SCH ×2 (08:58→21:35)
[2018-12-24] MEDS: SERTRALINE HCL 100 MG TABLET PEG SCH (08:58)
[2018-12-24] MEDS: FAMOTIDINE 20 MG TAB JT SCH ×3 (08:59→21:36)
[2018-12-24] MEDS: DIVALPROEX SODIUM SPRINKLE 125 MG CAP PEG SCH ×2 (08:59→21:34)
[2018-12-24] MEDS: LANSOPRAZOLE 15 MG SOLTAB PEG SCH ×2 (09:02→21:36)
[2018-12-24] MEDS ORDERED: VANCOMYCIN TROUGH ONE (09:30)
--- NOTE | 2018-12-24 09:59 | Palliative Care Progress Note ---
Date of Service December 24, 2018 Assessment & Plan (1) Goals of care, counseling/discussion: -68 year old male with PMH COPD, chronic aspiration and dysphagia, PEG tube with enteral feedings, resident of the [facility], anxiety, depression, OCD, reflux, CPH, presented with respiratory failure due to MRSA pneumonia and tube feed aspiration. Patient was here a couple weeks ago for pneumonia as well. He is on IV vanco and Zosyn. Was on bipap for a few days and was refusing to take it off, now is on oxymask and much improved today. PUlmonary saw patient yesterday and recommends continuing with current treatment. Palliative care consulted to discuss goals of care. -Met with patient in room 237 this morning. He is awake, alert, oriented to person and place, not time. Patient knew he was in the hospital with pneumonia. Patient stated that Dayron Osman is his POA and would be the one to make medical decisions for him if he was unable. -Patient promptly stated, "I want to live as long as possible." "I want everything done." We discussed code status, patient wants to remain a full code. -Plan will be for patient to return to the [facility] when medically stable. -Patient has some mild generalized and back pain. Utilize Tyelnol as needed. -Case management has spoke with the [facility]. They state that patient's behaviors are controlled on his current medications. -Will follow peripherally. Please contact me if there are any further palliative care needs. (2) Chronic pulmonary aspiration: (3) On enteral nutrition: (4) Altered mental status, unspecified: Subjective Reason for consult: Goals of care Consulting provider: Dr. Fish HPI: This 68 year old male with PMH COPD, chronic aspiration and dysphagia, PEG tube with enteral feedings, resident of the [facility], anxiety, depression, OCD, reflux, CPH, presented with respiratory failure due to MRSA pneumonia and tube feed aspiration. Patient was here a couple weeks ago for pneumonia as well. He is on IV vanco and Zosyn. Was on bipap for a few days and was refusing to take it off, now is on oxymask and much improved today. PUlmonary saw patient yesterday and recommends continuing with current treatment. Palliative care consulted to discuss goals of care. Thank you kindly for this consult. I will follow as needed. Constitutional: + weakness Ear, Nose, Mouth, Throat: no problem reported Respiratory: + cough; no dyspnea Cardiovascular: no chest pain and no edema Gastrointestinal: no abdominal pain and no nausea Musculoskeletal: + back pain (mild) Neurologic: no confusion Psychiatric: no anxiety Physical Exam Vital Signs (Past 24 Hours): Last Vital Signs Temp 37.0 C 12/24/18 07:45 Pulse 92 H 12/24/18 07:45 Resp 18 12/24/18 07:45 BP 142/76 H 12/24/18 07:45 Pulse Ox 97 12/24/18 07:45 Constitutional: + ill appearing (appears chronically deconditioned) ENMT: external ear and nose normal, oropharynx normal Ears: no hearing impairment Neck: normal visual inspection Respiratory: normal respiratory effort (poor respiratory effort, did not take deep breaths) and able to speak in complete sentences; no labored breathing, does not use accessory muscles and not tachypneic Auscultation: + diminished lung sounds and + crackles (few, fine crackles in BL bases) Cardiovascular: RRR, no murmur, no edema Gastrointestinal (Abdomen): Inspection/Auscultation: abdomen normal to inspection (PEG tube present) and normal bowel sounds Percussion/Palpation: abdomen soft; abdomen nontender Skin: sacral ulcers covered with dressings. See pictures in provider's notes Neurologic: awake; not confused Psychiatric: Orientation: alert, oriented to person and oriented to place; + not oriented to time Supervising Physician Co-Signing Physician Notes Chart reviewed, pt seen and examined - no family at bedside Collaborated with CARRI Haider PE: pt appears comfortable , lying in bed on O2 via Oxymask HEENT: EOMI, hearing WNL Resp: slightly labored with speech, diminished BS CV: RR, no edema Abd: soft, NT, GT in place Agree with above note, assessmen and plan - will cont to follow peripherally - pt wants all aggressive measures to prolong life. Time Spent Midlevel 55 minutes with >50% of time spent at bedside with patient discussing condition and GOC. (1) Altered mental status, unspecified Altered mental status type: coma Coma depth: [place] coma 9-12 Coma timing: unspecified coma timing Qualified Code(s): R40.2420 - Sofi coma scale score 9-12, unspecified time
--- NOTE | 2018-12-24 11:13 | Pharmacy Report ---
Pharmacy Abx Dose Short Note - Date of Service December 24, 2018 - Assessment & Plan Assessment 68 year old M receiving vancomycin and zosyn for sepsis secondary to pneumonia * Day # 5 of antimicrobial therapy * sputum culture growing MRSA * zosyn will be discontinued today Plan Vancomycin * Trough level of 14.9 is slightly subtherapeutic * Change to 1500 mg IV every 12 hours * Goal trough level for pneumonia: 15 - 20 mcg/mL * Trough level will be repeated if change in clinical status or continued therapy * When switch to oral therapy is appropriate, consider completion of treatment with doxycycline or Bactrim Pharmacy will continue to follow and will adjust dose/frequency as necessary. Thank you.
[2018-12-24] MEDS: VANCOMYCIN HCL 1,500 MG in SODIUM CHLORIDE 0.9% 500 ML IV SCH ×2 (11:35→22:32)
[2018-12-24] MEDS ORDERED: POTASSIUM PHOS 3 MMOL/1 ML INFUSION IV STA (13:40)
--- NOTE | 2018-12-24 13:50 | Progress Note ---
DATE: 12/24/2018 PULMONARY PROGRESS NOTE TIME: 1:25 p.m. SUBJECTIVE: The patient is sleeping heavily at the time of my evaluation. According to nursing staff, he has been restless today. He will shout and yell at times. He does seem to realize today that he is in a hospital. He has had a lot of secretions according to nursing staff. They have had to suction him out fairly frequently. OBJECTIVE: GENERAL: The patient was comfortable. He was in no distress at rest. HEENT: There was no evidence of any secretions in the mouth or pharynx. VITAL SIGNS: Cardiac rate was 91 per minute. Rhythm was regular. Blood pressure 153/85. LUNGS: Lung thakur were clear bilaterally as much as could be evaluated. He was clear anteriorly and clear in the left lateral and posterior area. Oxygen saturation was 97% on 4-liter OxyMask. LABORATORY DATA: White count today is 7.28. On admission on the , the white count was 32.26. Hemoglobin is down to 8.1, and on the was 10.5. Platelets are 263,000. Electrolytes show sodium 146, potassium 3.3, chloride 110, bicarb 33. The bicarbonate has been rising somewhat. He was 27 on the prior check yesterday. BUN is 7 with a creatinine of 0.49. Phosphorus was low at 2.4 and magnesium low at 1.6. Sputum from 12/20/2018 showed MRSA, has had prior sputum from 12/12 and blood from 12/12. Blood culture from the was negative. IMPRESSION: 1. Respiratory failure - acute on chronic with hypoxia and hypercarbia. 2. Pneumonia secondary to MRSA. 3. Probable aspiration. COMMENTS AND RECOMMENDATIONS: The patient seems to be clinically improved. Clearly, he is getting mentally doctor of audiology, although still confused. We would want to recheck a chest x-ray. I thought that was ordered for today, but it apparently was not ordered. We will put in that order. Would continue the vancomycin for now.
[2018-12-24] MEDS ORDERED: POTASSIUM PHOSPHATE 21 MMOL in SODIUM CHLORIDE 0.9% 500 ML IV ONE (14:00)
[2018-12-24] MEDS: MAGNESIUM SULFATE / D5W 1 GM/100 ML BAG IV SCH ×2 (14:35→15:43)
[2018-12-24] MEDS: VANCOMYCIN HCL 1,250 MG in SODIUM CHLORIDE 0.9% 250 ML IV SCH (18:38)
[2018-12-24] MEDS: TAMSULOSIN HCL 0.4 MG CAP PO SCH (21:35)
[2018-12-24] MEDS: PEPTAMEN 1.5 CAL 1,000 ML BAG PEG SCH (22:32)
--- NOTE | 2018-12-24 23:14 | Hospitalist Progress Note ---
Date of Service December 24, 2018 Assessment & Plan (1) Sepsis: Patient likely is septic from a pulmonary source from MRSA pneumonia, patient's white count did respond to his antibiotics and is reduced to 11,000. Fever has improved. Patient now tolerating oxymask. Sputum culture is positive for MRSA. Sensitive to vanco. Will treat for at least 10 days. May taper to PO antibiotics tomorrow. If having difficulty, may consider pulmonary consult. (2) Acute hypoxemic respiratory failure: Patient is acute of acute respiratory failure from likely MRSA pneumonia superimposed on baseline history of COPD, he remains on vancomycin and Zosyn pending sputum cultures likely will need to be continued on a MRSA specific drug considering the nasal it is a can be converted to oral medication. On 12/23, will continue current antibiotic regimen as patient is improving. (3) Altered mental status, unspecified: Metabolic encephalopathy improving from pneumonia .A Appears to be close to his baseline. (4) Chronic pulmonary aspiration: Patient is unable to provide us with details of his need for his PEG tube. He subsequently usually takes Peptamen 1500 mL overnight with free water flushes added. Is currently on hold due to his significant illness. (5) Depression: Patient has significant depression with outbursts at times his clonazepam is currently being held due to his obtunded mental state but likely will need to be restarted given possibility of withdrawal continuing as needed Risperdal for outburst and sertraline 100 via feeding tube There is some discussion about the patient being on valproic acid possibly for mood stabilization. (6) BPH (benign prostatic hyperplasia): Previously the patient was on tamsulosin this will be continued complaints of lower urinary tract symptoms (7) DVT prophylaxis: Patient is on heparin DVT prevention even at the detention [place] Spent 25 minutes in management of patient. Subjective Patient reports feeling well. He is a poor historian and just provides one worded answers. He states he is improving but does not provide further details. He does appear to be comfortable on oxymask. Unable to obtain ROS. Physical Exam Vital Signs (Past 24 Hours): Last Vital Signs Temp 37.2 C 12/24/18 19:12 Pulse 62 12/24/18 23:12 Resp 14 12/24/18 23:12 BP 125/64 12/24/18 19:12 Pulse Ox 97 12/24/18 23:12 Physical Exam: The patient appeared IMPROVED ON OXYMASK. Vital signs as documented. Head exam is unremarkable. normocephalic, atraumatic Neck is without jugular venous distension, thyromegaly, or lymphademopathy Lungs are coarse with decreased air movement Cardiac exam reveals Rhythm is regular. First and second heart sounds normal. Abdominal exam reveals normal bowel sounds, no masses, no organomegaly Extremities are nonedematous and both pedal pulses are present Neurologic exam is A&Ox2, globally oblique spontaneously moves all extremities (1) Altered mental status, unspecified Altered mental status type: coma Coma depth: Sofi coma 9-12 Coma timing: unspecified coma timing Qualified Code(s): R40.2420 - [place] coma scale score 9-12, unspecified time
[2018-12-25] MEDS: METOCLOPRAMIDE HCL 5 MG TABLET PO SCH ×3 (06:03→19:10)
[2018-12-25] MEDS: ALBUT/IPRATROP 3MG/0.5MG NEB 3 ML VIAL INH SCH ×3 (06:29→23:21)
--- NOTE | 2018-12-25 07:31 | XRay Report ---
XR chest 1V portable CLINICAL HISTORY: Abnormal chest x-ray. Follow-up study. COMPARISON STUDY: 12/20/2018 FINDINGS: The cardiac and mediastinal contours remain stable. There is improving pulmonary vascular c ongestion. There are improving left basilar airspace opacities. A trace left pleural effusion is susp ected.[ IMPRESSION: 1. Resolving pulmonary vascular congestion 2. Improving left basilar airspace opacities Electronically signed by: Reinaldo Bautista M.D. 12/25/2018 7:30 AM
[2018-12-25] MEDS: SERTRALINE HCL 100 MG TABLET PEG SCH (08:47)
[2018-12-25] MEDS: LANSOPRAZOLE 15 MG SOLTAB PEG SCH ×2 (08:47→20:59)
[2018-12-25] MEDS: DIVALPROEX SODIUM SPRINKLE 125 MG CAP PEG SCH ×2 (08:47→21:00)
[2018-12-25] MEDS: FAMOTIDINE 20 MG TAB JT SCH ×3 (08:49→20:59)
[2018-12-25] MEDS: HEPARIN SOD 5,000 UNIT/0.5 ML VIAL SQ SCH ×2 (08:49→21:00)
[2018-12-25] MEDS: VANCOMYCIN HCL 1,500 MG in SODIUM CHLORIDE 0.9% 500 ML IV SCH (08:58)
[2018-12-25] MEDS: ACETAMINOPHEN SOLN 500 MG/15.62 ML UDP GT PRN ×2 (15:52→21:12)
[2018-12-25] MEDS: PEPTAMEN 1.5 CAL 1,000 ML BAG PEG SCH (19:06)
[2018-12-25] MEDS: TAMSULOSIN HCL 0.4 MG CAP PO SCH (20:58)
[2018-12-25] MEDS: SULFA/TRIMETH SUSP 800/160MG 20ML UDC PO SCH (20:58)
--- NOTE | 2018-12-25 23:18 | Hospitalist Progress Note ---
Date of Service December 25, 2018 Assessment & Plan (1) Sepsis: Patient likely is septic from a pulmonary source from MRSA pneumonia, patient's white count did respond to his antibiotics and is reduced to 11,000. Fever has improved. Patient now tolerating oxymask. Patient is only on 2 liters nasal cannula. Sputum culture is positive for MRSA. Sensitive to vanco. Will transition to bactrim today. Will treat for at least 10 days. (2) Acute hypoxemic respiratory failure: Patient is acute of acute respiratory failure from likely MRSA pneumonia superimposed on baseline history of COPD, he remains on vancomycin and Zosyn pending sputum cultures likely will need to be continued on a MRSA specific drug considering the nasal it is a can be converted to oral medication. On 12/25, will continue current antibiotic regimen as patient is improving. (3) Altered mental status, unspecified: Metabolic encephalopathy improving from pneumonia .A Appears to be close to his baseline. (4) Chronic pulmonary aspiration: Restarted PEG tube feeding. (5) Depression: Patient has significant depression with outbursts at times his clonazepam is currently being held due to his obtunded mental state but likely will need to be restarted given possibility of withdrawal continuing as needed Risperdal for outburst and sertraline 100 via feeding tube There is some discussion about the patient being on valproic acid possibly for mood stabilization. (6) BPH (benign prostatic hyperplasia): Previously the patient was on tamsulosin this will be continued complaints of lower urinary tract symptoms (7) DVT prophylaxis: Patient is on heparin DVT prevention even at the detention [place] Spent 25 minutes in management of patient. Subjective Patient reports feeling well. He is a poor historian and just provides one worded answers. Patient denies any new complaints. Nurse explains that patient appears to be back to his baseline as he is tolerating 2 liters. Physical Exam Vital Signs (Past 24 Hours): Last Vital Signs Temp 36.8 C 12/25/18 23:00 Pulse 72 12/25/18 23:00 Resp 18 12/25/18 23:00 BP 123/72 12/25/18 23:00 Pulse Ox 91 12/25/18 23:00 Physical Exam: The patient appears comfortable. Vital signs as documented. Head exam is unremarkable. normocephalic, atraumatic Neck is without jugular venous distension, thyromegaly, or lymphademopathy Lungs clear with decreased breath sounds on best Cardiac exam reveals Rhythm is regular. First and second heart sounds normal. Abdominal exam reveals normal bowel sounds, no masses, no organomegaly Extremities are nonedematous and both pedal pulses are present Neurologic exam is A&Ox2, globally oblique spontaneously moves all extremities (1) Altered mental status, unspecified Altered mental status type: coma Coma depth: Sofi coma 9-12 Coma timing: unspecified coma timing Qualified Code(s): R40.2420 - [place] coma scale score 9-12, unspecified time
[2018-12-26] MEDS: METOCLOPRAMIDE HCL 5 MG TABLET PO SCH ×3 (00:01→12:59)
[2018-12-26] MEDS: ALBUT/IPRATROP 3MG/0.5MG NEB 3 ML VIAL INH SCH (07:22)
[2018-12-26] MEDS: SERTRALINE HCL 100 MG TABLET PEG SCH (09:37)
[2018-12-26] MEDS: HEPARIN SOD 5,000 UNIT/0.5 ML VIAL SQ SCH (09:37)
[2018-12-26] MEDS: DIVALPROEX SODIUM SPRINKLE 125 MG CAP PEG SCH (09:38)
[2018-12-26] MEDS: LANSOPRAZOLE 15 MG SOLTAB PEG SCH (09:38)
[2018-12-26] MEDS: FAMOTIDINE 20 MG TAB JT SCH ×2 (09:38→13:00)
[2018-12-26] MEDS: SULFA/TRIMETH SUSP 800/160MG 20ML UDC PO SCH (09:39)
[2018-12-26] MEDS: ACETAMINOPHEN SOLN 500 MG/15.62 ML UDP GT PRN (09:45)
--- NOTE | 2018-12-26 12:03 | Discharge Summary ---
Date of Service December 26, 2018 Admission HPI Per Admitting Provider 68-year-old male is chronically dependent on PEG tube feedings for aspiration his admission to our facility with acute respiratory failure with hypoxia with apparent worsening of pneumonic infiltrate escalation white blood cell count with criteria for sepsis. Patient presented with a similar incidence of respiratory distress on 12 December. At that point time he was on Vanco and Zosyn. Zosyn was chosen as the de-escalation of antibiotics was undertaken in the ICU. The patient had progressed clinically well throughout the remainder of his hospital stay and [facility] His white blood cell count did come up slightly during that time he had had no fevers his mentation was improved and he was still having just a mild cough. He presents in marked respiratory distress with low blood pressure tachypnea hypoxia with worsening chest infiltrates requiring BiPAP to preserve his ventilation Principal Diagnosis Nosocomial Pneumonia (MRSA) Discharge Exam The patient appears comfortable. Vital signs as documented. Head exam is unremarkable. normocephalic, atraumatic Neck is without jugular venous distension, thyromegaly, or lymphademopathy Lungs clear with decreased breath sounds on best Cardiac exam reveals Rhythm is regular. First and second heart sounds normal. Abdominal exam reveals normal bowel sounds, no masses, no organomegaly Extremities are nonedematous and both pedal pulses are present Neurologic exam is A&Ox2, globally oblique spontaneously moves all extremities Discharge Data Allergies Allergy/AdvReac Type Severity Reaction Status Date / Time haloperidol [From Haldol] Allergy Unknown Unknown Unverified 12/12/18 15:14 methylphenidate Allergy Unknown Unknown Unverified 12/12/18 15:14 Consultations 12/20/18 17:20 Consult Case Management - Discharge Planning Routine 12/23/18 11:05 Consult Palliative Care Routine 12/23/18 11:08 Consult Pulmonology Routine Hospital Course (1) Sepsis: Patient likely is septic from a pulmonary source from MRSA pneumonia, patient's white count did respond to his antibiotics and is reduced to 11,000. Fever has improved. Patient now tolerating on 2 liters nasal cannula. Patient inittaly was on BIPAP and titrated to oxymask, and no on nasal cannula. Sputum culture is positive for MRSA. Sensitive to vanco and bactrim Will transition to bactrim today. Will treat for 10 days. Patient will be on medicine for 4 more doses. (2) Acute hypoxemic respiratory failure: Patient is acute of acute respiratory failure from likely MRSA pneumonia superimposed on baseline history of COPD, he remains on vancomycin and Zosyn pending sputum cultures likely will need to be continued on a MRSA specific drug considering the nasal it is a can be converted to oral medication. Patient improved. (3) Altered mental status, unspecified: Metabolic encephalopathy improving from pneumonia .A Appears to be close to his baseline. (4) Chronic pulmonary aspiration: Restarted PEG tube feeding. (5) Depression: Patient has significant depression with outbursts at times his clonazepam is currently being held due to his obtunded mental state but likely will need to be restarted given possibility of withdrawal continuing as needed Risperdal for outburst and sertraline 100 via feeding tube There is some discussion about the patient being on valproic acid possibly for mood stabilization. (6) BPH (benign prostatic hyperplasia): Previously the patient was on tamsulosin this will be continued complaints of lower urinary tract symptoms (7) DVT prophylaxis: Patient is on heparin DVT prevention even at the [facility] Total Time Total Time Spent Total Time Spent (In Minutes): 31 Total Time Includes: Examination of the Patient, Discharge Planning and Medication Reconciliation Discharge Plan Discharge Items Patient Disposition: Transfer [facility] Reason For Visit: PNEUMONIA Discharge Diagnosis: Pneumonia Discharge Goals: Decrease discomfort and Improve function Activity: Resume your previous activity Non-emergency contact: Primary Care Provider Call non-emergency contact if: you have any medication questions Follow-up/Referrals: Mary Hill [Primary Care Provider] - Diet: Enteral nutrition Addtl Provider Instructions: Wound care instructions:Right heel cover: Optifoam, change 3 days and as needed Sacaral/buttocks/coccyx: clean with saline. Cover with large optifoam. Change with saline. Cover with large optifoam: change every day. PRN to keep dry. Turn over buttocks every 2 hours. Jevity 1.5 Bolus feed if 240cc 5x.24 hours Prescriptions: New sulfamethoxazole-trimethoprim 200-40 mg/5 mL Suspension 20 ml PO BID 4 Days Qty: 160 RF: 0 clonazepam 2 mg Tablet,Disintegrating 2 mg Feeding Tube HS PRN (Reason: agitation) Qty: 10 RF: 0 lorazepam 1 mg Tablet 1 mg Feeding Tube TID PRN (Reason: anxiety) Qty: 15 RF: 0 Continued ipratropium-albuterol 0.5 mg-3 mg(2.5 mg base)/3 mL Solution For Nebulization 3 ml INHALATION Q8H RF: 0 sertraline 100 mg Tablet 100 mg Feeding Tube QAM RF: 0 guaifenesin 100 mg/5 mL Liquid 100 mg Feeding Tube TID RF: 0 famotidine 20 mg Tablet 20 mg Feeding Tube TID RF: 0 metoclopramide HCl [Reglan] 5 mg Tablet 5 mg Feeding Tube Q6H RF: 0 tamsulosin 0.4 mg Capsule 0.8 mg PO HS RF: 0 valproic acid (as sodium salt) [Depakene] 250 mg/5 mL Solution 750 mg PO BID RF: 0 fluticasone propionate [Flonase Allergy Relief] 50 mcg/actuation [place],Suspension 1 spray INTRANASAL BID RF: 0 heparin (porcine) 5,000 unit/mL Solution 5,000 unit SUBCUT Q12H RF: 0 finasteride 5 mg Tablet 5 mg Feeding Tube HS RF: 0 loratadine 10 mg Tablet 10 mg Feeding Tube QAM RF: 0 risperidone 0.5 mg Tablet,Disintegrating 0.5 mg Feeding Tube Q6H PRN (Reason: americo) RF: 0 acetaminophen 650 mg/20.3 mL Solution 500 mg PO Q6H PRN (Reason: mild pain) RF: 0 Discontinued clonazepam 1 mg Tablet,Disintegrating 1 mg Feeding Tube QAM RF: 0 amoxicillin-pot clavulanate [Augmentin] 875-125 mg tablet 1 tab feeding tube BID Qty: 14 RF: 0 Stand-Alone Forms: [facility] Discharge Orders: Discharge Order (Routine); Ordered 12/26/18 Ordered By: Minh Fish Skilled Items Patient informed of condition?: Yes DNR: No Discharge Level of Care: Skilled Communicable Disease: No Discharge Prognosis: Stable Admission Data Admit Date/Time: 12/20/18 15:09 Attending Provider: Minh Fish Admit Provider: Gigi Rouse Primary Care Provider: Mary Hill Other Providers: Ana Maria Haynes ; Gregorio Hill Service: Medical
== END 2018-12-26 13:30 | DRG 871 ==
LOC: ED 13:15 → SUATTDRO 15:09 → 2S 15:09 → 4W 12-25 11:58